=== PATIENT | female | born 1950 | race African-American/Black ===

== ENCOUNTER 2016-08-07 07:00 | Observation (INO) ==
--- NOTE | 2016-08-07 07:56 | Oncology History&Physical ---
History of Present Illness Chief complaint: Outpatient observation for chemotherapy History of present illness: Ms. Pearson is a 66 year old female with small cell carcinoma of the lung admitted for further chemotherapy. Ms. Pearson is a 66 year old female with what is at least stage III B neuroendocrine carcinoma lung that was initially treated in January. Her chemotherapy was started January 17 and she subsequently suffered respiratory arrest requiring intubation and respiratory support including ventilator support. She responded to chemotherapy well and has had significant shrinkage of her tumor. She received her sixth course of chemotherapy during this hospital stay. It consisted of: Etoposide 150 mg IV daily for 3 days given June 11- Carboplatin 450 mg IV on June 12 only Chemotherapy to be administered today will include: Kytril 1 mg IV dexamethasone 10 mg IV Emend 150 mg IV Atropine 0.8 mg IV Camptosar 80 mg IV over 90 minutes Carboplatin 450 mg IV over 1 hour She had responded well to chemotherapy but now she has had progression of disease that is visible on her chest x-ray. The right lung mass has doubled in size over about the last month and she will be admitted at this time for a change in chemotherapy to carboplatin and Camptosar. She is admitted for this chemotherapy because of the multiple adverse reactions that have occurred with previous treatments including respiratory arrest that occurred while she was receiving her first course. She is also admitted because she is very apprehensive about this chemotherapy. She has exceedingly severe COPD and she continues to have dyspnea with exertion but this is improving. She also has had foot drop involving her right foot and this is improving. I suspect that this is unrelated to the actual chemotherapy but more likely related to the fact that she was on a ventilator for a prolonged period of time and may have developed a neuropathy from pressure on her leg. Allergies: Chantix causes hallucinations Past medical history is positive for hypertension, hypothyroidism, bradycardia, COPD and goiter. Previous operations include a hysterectomy with oophorectomy December 28, 1987, thyroidectomy January 14, 1984, breast biopsy October 11, 2004 and appendectomy December 28, 1987. She has also had a compression fracture of the lumbar spine. Social history she smoked half pack a day for many years but does not smoke presently. Family history is positive for lung disease and a brother, coronary artery disease in her father and in a son, hypertension and kidney disease in her mother. ROS Gen.: Positive for fatigue and generalized weakness Eyes: No history of chronic disease, infections or visual loss. ENT: Positive for loss of sense of taste no history of chronic infections, epistaxis, chronic sore throat Lungs: Positive for dyspnea at rest and with exertion. Positive for emphysema. She actually has not ever reported any hemoptysis other than a small amount of blood-tinged sputum. Cardiovascular: No history of angina, coronary artery disease, congestive heart failure, cardiovascular surgery or DVT/VTE GI: No history of upper or lower GI bleeding, melena, dysphagia, odynophagia, liver disease, gallbladder disease or pancreatic disease. : No history of kidney stones, chronic kidney infections or hematuria. Musculoskeletal: Positive for back pain from the compression fracture. Also positive for generalized muscle weakness. Neurologic: Positive for foot drop involving her right foot. No history of seizures, convulsions or paralysis. Psychiatric: No history of chronic psychiatric illness or psychiatric medications. Lymphatic: No history of significant or long-term lymphadenopathy Hematologic: Positive for pancytopenia related to chemotherapy. Skin: No history of chronic skin infections or rashes or significant skin lesions. Physical examination: General: The patient appears chronically ill and tachypneic. Eyes: Normal lids and conjunctivae. ENT: Oral mucosa is normal. Pharynx is normal. Tongue is normal. Her hearing is normal. Neck: Her trachea is midline. Thyroid is normal and she has no neck masses. Cardiovascular: Her heart rhythm is regular without murmur, gallop or rub. There is no jugular venous distention, clubbing or cyanosis and no edema. Pulmonary: Breath sounds are exceedingly coarse and decreased throughout the lung espitia with a slightly prolonged expiratory phase of respiration. I hear no wheezing, rubs, rales or rhonchi. Abdomen: I palpate no abdominal masses, organomegaly, distention, tenderness or ascites. Musculoskeletal: She has generalized muscle weakness and is somewhat thin with loss of muscle mass but there is no focal muscle atrophy or bone or joint deformity. Gait and station are surprisingly normal. Neurologic: Cranial nerves II through XII are intact. There are no focal neurologic deficits. Nodes: There is no cervical, supraclavicular or axillary adenopathy. Skin: Cursory examination is normal. Impression: Recurrent neuroendocrine lung carcinoma with progression of disease Administration of chemotherapy and monitoring for toxicity Severe COPD aggravated by recurrent lung cancer Administration of chemotherapy and monitoring for toxicity Hypertensive cardiovascular disease hypothyroidism Anemia of chronic disease Home Medications Medication Instructions Recorded Confirmed Type Aspirin [Ecotrin] 81 mg PO QAM 12/11/15 07/06/16 History Levothyroxine Tab [Synthroid Tab] 50 mcg PO QAM 12/11/15 07/06/16 History Magnesium Chloride [Slow Mag] 64 mg PO QAM 12/11/15 07/06/16 History NIFEdipine XL TAB [Procardia Xl] 30 mg PO QAM 12/11/15 07/06/16 History Acetaminophen Tab [Tylenol Tab] 325 mg PO Q4H PRN #0 tablet 01/30/16 07/06/16 Rx Docusate Sodium Cap [Colace Cap] 100 mg PO BID PRN #0 capsule 01/30/16 07/06/16 Rx Metoprolol Tartrate Tab [Lopressor 50 mg PO BID tablet 01/30/16 07/06/16 Rx Tab] HYDROcodone/ACETAMIN 7.5-325 1 tablet PO Q6H PRN #20 tablet 04/09/16 07/06/16 Rx [[place] 7.5-325] Umeclidinium Brm/Vilanterol Tr 1 puff INH QAM 05/15/16 07/06/16 History [Anoro Ellipta] Furosemide Tab [Lasix Tab] 20 mg PO QAM 07/06/16 07/06/16 History Losartan [Cozaar] 25 mg PO QAM 07/06/16 07/06/16 History predniSONE TAB [PredniSONE] 10 mg PO QAM 07/06/16 07/06/16 History Allergies Allergy/AdvReac Type Severity Reaction Status Date / Time Varenicline [From Chantix] Allergy Hallucinati Verified 07/06/16 08:27 ng Medical,Surgical,& Family Hx - Medical History Cardio: History of: Hypertension Neurology: No history of: Seizures HEENT: History of: Eye Problem (Cataracts Both Eyes) Endocrine: History of: Thyroid Disorder Respiratory: History of: COPD, Pneumonia, Lung Cancer, Respiratory Problems (SOB , obstruction of upper lobe. 2 LITERS OF O2 PRN.) Gastrointestinal: History of: Diverticulitis/ Diverticulosis, GERD, Hemorrhoids , Polyps, GI Problems (diverticulitis) Other: History of: Cancer (LUNG CANCER), Miscellaneous Medical Problems (Bronch December 2015) - Surgical History HEENT Surgeries: Surgical HX of: Thyroid Surgery (partial thyroidectomy) Patient denies: Tonsilectomy & Adenoidectomy Abdominal Surgeries: Surgical HX of: Appendectomy, Colonoscopy Reproductive Surgeries: Surgical HX of;: Hysterectomy (TOTAL) - Family History Family History: Reports;: Family Cancer (uncle, brother), Family Diabetes ( multiple), Family Heart Disease (multiple), Family Hypertension (multiple) Denies;: Family Stroke - Social History Smoking Status: Former smoker
[2016-08-07] MEDS ORDERED: FOSAPREPITANT 150 MG in SODIUM CHLORIDE 0.9% 100 ML IV ONE (08:24)
[2016-08-07] MEDS ORDERED: ATROPINE 0.4 MG/1 ML VIAL IV SCH (09:00)
[2016-08-07] MEDS ORDERED: DEXTROSE 5% IV ONE (09:00)
[2016-08-07] MEDS ORDERED: IRINOTECAN IV ONE (09:00)
[2016-08-07] MEDS ORDERED: CARBOplatin 450 MG in SODIUM CHLORIDE 0.9% 250 ML IV ONE (09:00)
[2016-08-07 09:15] LABS: Basophils % 0.1 % (0.0-0.8); Eosinophils % 0.1 % (0.00-10.9); Hematocrit 34.5 VOL% (35.7-47.0); Hemoglobin 11.3 GM/DL (12.0-16.0); Immature Granulocytes % 0.6 %; Immature Granulocytes Absolute 0.04 #; Lymphocytes # 1.7 10*3/uL (1.4-4.0); Lymphocytes % 24.1 % (21.3-54.2); Mean Corpuscular HGB Conc 32.8 GM/DL (32-36); Mean Corpuscular Hemoglobin 31 PG (27-34); Mean Platelet Volume 10.1 FL (9.6-12.0); Monocytes # 1.2 10*3/uL (0.11-0.8); Monocytes % 16.7 % (1.7-12.7); Neutrophils # 4.2 10*3/uL (1.4-7.4); Neutrophils % 58.4 % (38.7-73.9); Platelet Count 282 T/CUMM (130-400); Red Blood Count 3.63 MC/CUMM (3.8-5.5); Red Cell Distribution Width 15.2 % (9.3-17.3); White Blood Count 7.2 T/CUMM (4-12)
[2016-08-07 09:42] LABS: Albumin 3.6 G/DL (3.4-5.0); Bilirubin,Total 0.4 MG/DL (0.2-1.0); Calcium 9.5 MG/DL (8.5-10.1); Osmolality,Calculated 284.1 MOS/KG (273-304); Potassium 3.6 MMOL/L (3.5-5.1); Total Protein 6.7 G/DL (6.4-8.3)
--- NOTE | 2016-08-07 09:52 | Event Note ---
I was asked to see Ms. Pearson as a courtesy consult by Dr. Reddy. Very familiar with her case. She has advanced cancer and now has total white out of the right lung. We bronchoscoped her a months ago and she had total obstruction of the bronchus intermedius and about a 90% obstruction of the right upper lobe. Not surprising that it is totally obstructed now. Basically she is doing okay with one long. Needs oxygen and bronchodilators. Agree with change of chemotherapy. Prognosis is poor. Please call if needed further.
[2016-08-07 09:56] LABS: Band Neutrophils 1 % (0-10); Hypochromasia 1+; Lymphocytes 25 % (20-55); Microcytosis Slight; Segmented Neutrophils 59 % (50-85); Total Cells Counted 100
--- NOTE | 2016-08-07 09:57 | XRay Report ---
History: Small cell lung cancer. Severe COPD Date: 08/07/2016 Study: Chest x-ray PA and lateral Comparison exam: July 06, 2016 chest x-ray There is complete opacification of the right hemithorax, likely related to a combination of pleural effusion and right lung atelectasis. The left lung is well-expanded and clear. A left subclavian Mediport catheter is positioned with its tip overlying the atriocaval junction region. There is no gross cardiac enlargement or pulmonary vascular engorgement. There is moderate thoracic spondylosis. Impression: There is now complete opacification of the right hemithorax, likely related to combination of right lung atelectasis and right pleural effusion. The appearance is grossly similar to the interactive multimedia designer film from the CT chest of July 08, 2016. No acute changes otherwise PROCEDURE INTERPRETED AT [facility] DEPARTMENT OF RADIOLOGY Final Report Signed by: Dr. Kia Albert
[2016-08-07 09:59] LABS: Platelet Estimate Normal
[2016-08-07] MEDS: GRANISETRON 1 MG/1 ML VIAL IV SCH (10:03)
[2016-08-07] MEDS: DEXAMETHASONE 4 MG/1 ML VIAL IV SCH (10:04)
[2016-08-07] MEDS ORDERED: ACETAMINOPHEN 325 MG TABLET PO PRN (10:26)
[2016-08-07] MEDS: predniSONE 10 MG TABLET PO SCH (11:46)
[2016-08-07] MEDS: ASPIRIN EC 81 MG TABLET PO SCH (11:55)
[2016-08-07] MEDS: MAGNESIUM CHLORIDE 64 MG TABLET PO SCH (11:55)
[2016-08-07] MEDS: LOSARTAN 25 MG TABLET PO SCH (11:56)
[2016-08-07] MEDS: DOCUSATE SODIUM 100 MG CAPSULE PO SCH ×2 (11:56→20:06)
[2016-08-07] MEDS: FUROSEMIDE 20 MG TABLET PO SCH (11:56)
[2016-08-07] MEDS: METOPROLOL TARTRATE 50 MG TABLET PO SCH ×2 (11:56→20:05)
[2016-08-07] MEDS ORDERED: chlorproMAZINE INJ 25 MG in SODIUM CHLORIDE 0.9% 100 ML IV PRN (19:58)
[2016-08-07] MEDS ORDERED: chlorproMAZINE INJ 50 MG in SODIUM CHLORIDE 0.9% 100 ML IV PRN (19:59)
[2016-08-08] MEDS: LEVOTHYROXINE 50 MCG TABLET PO SCH (06:28)
--- NOTE | 2016-08-08 08:03 | Oncology Progress Note ---
Oncology Subjective PN Interval history: Ms. Pearson received Camptosar and carboplatin yesterday and had nausea and vomiting with it. It improved with Thorazine. She is feeling much better today. She is constipated and we need to address this and then she can go home. I will set up an appointment for her to see me in 2 weeks to follow-up on her lung cancer. Her chemotherapy consisted of Camptosar 80 mg and carboplatin 450 mg. The Camptosar is usually repeated on day 8 but I do not think I will do that with her first course and I may not do it at all. She is oriented and alert today. She has severe COPD. She is somewhat tachypneic but this is chronic. I will give her Aloxi before she is discharged. She already has Compazine tablets at home. Exam - Constitutional Vitals: Period Temp Pulse Resp BP Sys/Carvajal Pulse Ox Last 24 Hr 96.3 F-98.8 F 53-67 16-20 92-164/50-77 90-94 Results - Labs CBC & BMP: 08/07/16 08:50 08/07/16 08:50
[2016-08-08] MEDS ORDERED: PALONOSETRON 0.25 MG/5 ML VIAL IV ONE (08:15)
[2016-08-08] MEDS ORDERED: LACTULOSE 20 GM/30 ML UDCUP PO PRN (08:21)
[2016-08-08] MEDS: predniSONE 10 MG TABLET PO SCH (08:46)
[2016-08-08] MEDS: METOPROLOL TARTRATE 50 MG TABLET PO SCH ×2 (08:46→20:34)
[2016-08-08] MEDS: FUROSEMIDE 20 MG TABLET PO SCH (08:46)
[2016-08-08] MEDS: ASPIRIN EC 81 MG TABLET PO SCH (08:46)
[2016-08-08] MEDS: MAGNESIUM CHLORIDE 64 MG TABLET PO SCH (08:46)
[2016-08-08] MEDS: DOCUSATE SODIUM 100 MG CAPSULE PO SCH ×2 (08:47→20:34)
[2016-08-08] MEDS: DEXAMETHASONE 4 MG/1 ML VIAL IV SCH (08:47)
[2016-08-08] MEDS: LOSARTAN 25 MG TABLET PO SCH (08:47)
[2016-08-08] MEDS: GRANISETRON 1 MG/1 ML VIAL IV SCH (09:01)
[2016-08-08] MEDS ORDERED: ALPRAZolam 0.25 MG TABLET PO PRN (12:36)
[2016-08-09] MEDS: LEVOTHYROXINE 50 MCG TABLET PO SCH (06:30)
[2016-08-09 08:36] VITALS: BP 132/63
--- NOTE | 2016-08-09 08:54 | Oncology Progress Note ---
Oncology Subjective PN Interval history: Ms. Pearson was formally discharged yesterday from outpatient chemotherapy using Camptosar and carboplatin. She was having problems with constipation and later diarrhea and remained overnight and is ready to go home today. This is allowed by Medicare law. The patient has 24 hours to vacate the room. She is feeling well today and will go home. Follow-up appointments are already made. Exam - Constitutional Vitals: Period Temp Pulse Resp BP Sys/Carvajal Pulse Ox Last 24 Hr 97.3 F-98.5 F 50-64 16-20 109-132/59-68 93-97 Results - Labs CBC & BMP: 08/07/16 08:50 08/07/16 08:50
[2016-08-09] MEDS: ASPIRIN EC 81 MG TABLET PO SCH (09:41)
[2016-08-09] MEDS: MAGNESIUM CHLORIDE 64 MG TABLET PO SCH (09:41)
[2016-08-09] MEDS: LOSARTAN 25 MG TABLET PO SCH (09:41)
[2016-08-09] MEDS: DOCUSATE SODIUM 100 MG CAPSULE PO SCH (09:41)
[2016-08-09] MEDS: predniSONE 10 MG TABLET PO SCH (09:41)
[2016-08-09] MEDS: METOPROLOL TARTRATE 50 MG TABLET PO SCH (09:41)
[2016-08-09] MEDS: FUROSEMIDE 20 MG TABLET PO SCH (09:42)
[2016-08-09] MEDS ORDERED: HEPARIN LOCK FLUSH 500 UNIT/5 ML SYRINGE IV PRN (09:44)
== END 2016-08-09 12:10 | disposition home or self-care (01) ==
LOC: N.4E → EDSTATUS 07:00
PROVIDERS: ADMIT Specialist; ATTEND Specialist

== ENCOUNTER 2016-09-24 06:41 | Inpatient (IN) ==
[2016-09-24] MEDS ORDERED: PROMETHAZINE 25 MG/1 ML VIAL IM ONE (07:10)
[2016-09-24] MEDS ORDERED: MIDAZOLAM 2 MG/2 ML VIAL IV ONE (07:10)
[2016-09-24] MEDS ORDERED: LIDOCAINE 2% VISCOUS 100 ML BOTTLE SWISH/SPIT ONE (07:22)
[2016-09-24] MEDS ORDERED: PROMETHAZINE 25 MG/1 ML VIAL ONE (07:54)
[2016-09-24] MEDS ORDERED: MIDAZOLAM 2 MG/2 ML VIAL ONE (08:23)
--- NOTE | 2016-09-24 08:55 | Pulmonology History & Physical ---
Assessment and Plan (1) Obstruction right upper lobe Status: Acute Assessment and plan: Plan for bronchoscopy outpatient this morning. Please see dictation from that Current Visit: Yes (2) metastatic small cell lung cancer Status: Acute Assessment and plan: Has known small cell lung cancer right lung with widespread metastasis. Current Visit: No (3) COPD (chronic obstructive pulmonary disease) Status: Chronic Assessment and plan: Chronic obstructive pulmonary disease treated with bronchodilators. She relates that one of the inhalers that we have prescribed she was not able to purchase. Current Visit: No - Constitutional Constitutional: Present: fatigue, malaise - Cardiovascular Cardiovascular: Present: dyspnea, dyspnea on exertion - Respiratory Respiratory: Present: dyspnea, hemoptysis, dyspnea on exertion History of Present Illness Chief complaint: Right upper lobe obstruction History of present illness: Ms. Pearson is a 66 year old female with small cell lung cancer. She has had 2 full rounds of different chemotherapies. She has had radiation therapy. She developed obstruction of the right upper lobe on x-ray and was sent to me by Dr. Reddy for bronchoscopy. She was supposed to come to the office yesterday but went to the emergency room. We arrange for bronchoscopy this morning. She has been short of breath and having a cough. She has not had any fever. Appetite is been fair. Home Medications Medication Instructions Recorded Confirmed Type Aspirin [Ecotrin] 81 mg PO QAM 12/11/15 09/24/16 History Levothyroxine Tab [Synthroid Tab] 50 mcg PO QAM 12/11/15 09/24/16 History Magnesium Chloride [Slow Mag] 64 mg PO QAM 12/11/15 09/24/16 History NIFEdipine XL TAB [Procardia Xl] 30 mg PO QAM 12/11/15 09/24/16 History Acetaminophen Tab [Tylenol Tab] 325 mg PO Q4H PRN #0 tablet 01/30/16 09/23/16 Rx Docusate Sodium Cap [Colace Cap] 100 mg PO BID PRN #0 capsule 01/30/16 09/24/16 Rx HYDROcodone/ACETAMIN 7.5-325 1 tablet PO Q6H PRN #20 tablet 04/09/16 09/24/16 Rx [[place] 7.5-325] Losartan [Cozaar] 25 mg PO QAM 07/06/16 09/24/16 History predniSONE TAB [PredniSONE] 10 mg PO QAM 07/06/16 09/24/16 History Doxepin HCl [Doxepin HCl] 25 mg PO BEDTIME 08/30/16 09/24/16 History Furosemide Tab [Lasix Tab] 40 mg PO QAM 08/30/16 09/24/16 History Metoprolol Tartrate Tab [Lopressor 50 mg PO BID W/MEALS 08/30/16 09/24/16 History Tab] Ondansetron Tab [Zofran Tab] 4 mg PO Q6H #10 tablet 08/30/16 09/24/16 Rx Albuterol Inhaler [Proventil 2 puff INH Q4H PRN 09/23/16 09/24/16 History Inhaler] Albuterol Neb [Proventil Neb] 2.5 mg RESP TX Q4H PRN 09/23/16 09/24/16 History Allergies Allergy/AdvReac Type Severity Reaction Status Date / Time Varenicline [From Chantix] Allergy Hallucinati Verified 09/23/16 12:06 ng Medical,Surgical,& Family Hx - Medical History Cardio: History of: Hypertension Neurology: No history of: Seizures HEENT: History of: Eye Problem (Cataracts Both Eyes) Endocrine: History of: Thyroid Disorder Respiratory: History of: COPD, Pneumonia, Lung Cancer, Respiratory Problems (SOB , obstruction of upper lobe. 2 LITERS OF O2 PRN.) Gastrointestinal: History of: Diverticulitis/ Diverticulosis, GERD, Hemorrhoids , Polyps, GI Problems (diverticulitis) Other: History of: Cancer (LUNG CANCER, LAST CHEMO 09/05/16), Miscellaneous Medical Problems (Bronch December 2015) - Surgical History HEENT Surgeries: Surgical HX of: Thyroid Surgery (partial thyroidectomy) Patient denies: Tonsilectomy & Adenoidectomy Abdominal Surgeries: Surgical HX of: Appendectomy, Colonoscopy Reproductive Surgeries: Surgical HX of;: Hysterectomy (TOTAL) - Family History Family History: Reports;: Family Cancer (uncle, brother), Family Diabetes ( multiple), Family Heart Disease (multiple), Family Hypertension (multiple) Denies;: Family Stroke - Social History Smoking Status: Former smoker Frequency of Alcohol Use: None Type of Drug Use: None Exam (Pulmonay) H&P - Constitutional Vitals: Period Temp Pulse Resp BP Sys/Carvajal Pulse Ox Last 24 Hr 98.4 F 83-108 12-26 142-179/83-107 87-100 Exam: Vital signs normal. Pupils react to light. Throat is clear. Neck supple no bruits. Chest reveals decreased breath sounds in the right upper lung field. Heart normal rate and rhythm no murmurs. Abdomen soft no masses. Extremities no clubbing cyanosis edema. Calves nontender.
--- NOTE | 2016-09-24 09:00 | Operative Note ---
Date of procedure: 09/24/16 (Fiberoptic bronchoscopy) Pre-op diagnosis: Known lung cancer with right upper lobe atelectasis, suspect obstruction Post-op diagnosis: same (Tumor involving lower one third of trachea with about 60% obstruction of trachea) Procedure: After an appropriate timeout to be sure we were dealing with Kwan Pearson, the patient was topically anesthetized with Xylocaine. She had been given Phenergan 25 mg intramuscularly. She was given 2 mg of Versed intravenously to the point of sedation. 3 L of nasal oxygen was placed in the left naris. The fiberoptic bronchoscope was introduced in the right naris. Vocal cords were identified and noted to function normally with phonation. After further topical anesthesia the trachea was entered. The lower one third of the trachea had bulky friable red endotracheal tumor all the way down to the takeoff of the right lung. Right upper lobe was totally obstructed. I was able to visualize in the right lower middle lobe. We took a photograph of the tumor. When we passed the bronchoscope around the tumor into the lower part of the right long, she had some bleeding from the tumor bed. The tumor was very friable. We used iced saline over the top of the tumor. The bleeding subsided somewhat. We did send bronchial washings from the saline for cytology. Based on what we saw visually this is clearly extension of her small cell lung cancer. The bronchoscope was removed. Patient returned to same-day surgery in stable condition. She still having some hemoptysis however. I discussed the case with Dr. Reddy and with the patient's son. I do not think that there are any measures that are going to make a difference at this point. We will try to quiet her cough to prevent further bleeding. She will be admitted to [facility] for comfort measures Anesthesia: conscious sedation Surgeon / Physician: Russel Martinez Estimated blood loss: other (She lost about 10-15 cc of blood) Specimens: other (Bronchial washings for cytology) Condition: stable Disposition: same day Discharge Plan - Discharge Medications No Action Aspirin [Ecotrin] 81 mg PO QAM Levothyroxine Tab [Synthroid Tab] 50 mcg PO QAM NIFEdipine XL TAB [Procardia Xl] 30 mg PO QAM Magnesium Chloride [Slow Mag] 64 mg PO QAM Acetaminophen Tab [Tylenol Tab] 325 mg PO Q4H PRN #0 tablet PRN Reason: fever, headache/body aches Docusate Sodium Cap [Colace Cap] 100 mg PO BID PRN #0 capsule PRN Reason: Constipation HYDROcodone/ACETAMIN 7.5-325 [[place] 7.5-325] 1 tablet PO Q6H PRN #20 tablet PRN Reason: Pain Losartan [Cozaar] 25 mg PO QAM Doxepin HCl [Doxepin HCl] 25 mg PO BEDTIME Furosemide Tab [Lasix Tab] 40 mg PO QAM predniSONE TAB [PredniSONE] 10 mg PO QAM Metoprolol Tartrate Tab [Lopressor Tab] 50 mg PO BID W/MEALS Ondansetron Tab [Zofran Tab] 4 mg PO Q6H #10 tablet Albuterol Neb [Proventil Neb] 2.5 mg RESP TX Q4H PRN PRN Reason: Shortness Of Breath/Wheezing Albuterol Inhaler [Proventil Inhaler] 2 puff INH Q4H PRN PRN Reason: Shortness Of Breath/Wheezing - Follow Up or Referral - Forms/Instructions Instructions: Christopher Bronchoscopy or Lung Biopsy
--- NOTE | 2016-09-24 09:19 | Oncology History&Physical ---
History of Present Illness Chief complaint: Progressive small cell neuroendocrine lung cancer History of present illness: Ms. 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 It was stage IV at the time of diagnosis and in addition she had extremely severe COPD. She has previously been treated with chemotherapy using etoposide and carboplatin and now she has progressed on Camptosar and carboplatin. She is not considered a candidate for radiation therapy because of stage IV disease. She has developed progression of disease with atelectasis of the right upper lobe and with progression of cancer growing up her mainstem bronchus on the right side. She is having worsening dyspnea although not particularly worsening chest pain. She is developing hemoptysis as well. She has had no fever. Lab work in my office done yesterday included a hemoglobin of 10.4 with a white cell count 6870 and a platelet count of 130,000. Past medical history is positive for COPD. Allergies: Chantix Secondary diagnoses include: Hypertensive cardiovascular disease Hypothyroidism Goiter Social history: She has been a heavy smoker in the past. Family history is positive for COPD in her brother, coronary artery disease in her father, hypertension and kidney disease in her mother. Review of systems: General: Positive for fatigue but negative for fever or chills. Eyes: Negative for significant eye disease, glaucoma or loss of vision. ENT: Negative for pharyngitis, odynophagia, significant mouth or throat disease. Respiratory: Positive for cough and dyspnea and she began having hemoptysis today. Cardiovascular: Negative for chest pain, irregular heartbeat or syncope. GI: Positive for decreased appetite. Negative for nausea and vomiting, hematemesis, melena or hematochezia. : Negative for kidney stones, kidney infections or hematuria. Neurologic: Negative for syncope or seizures or focal neurologic deficits. Hematologic: Positive for mild anemia but negative for leukopenia or thrombocytopenia. Negative for lymphadenopathy. Skin: Negative for skin rashes or lesions. Endocrine: Positive for hypothyroidism and goiter. Physical examination: General: The patient is chronically and acutely ill. Eyes: Normal lids and conjunctivae. ENT: Nodular goiter. Edentulous on maxillary ridge. Poor dentition on mandibular ridge. Trachea is midline. Hearing is normal. Lungs: Absent breath sounds in the upper two thirds of the right lung. Coarse breath sounds throughout the rest of the lung espitia with faint expiratory wheezing. Cardiovascular: Her heart rhythm is regular without murmur, gallop or rub. There is no jugular venous distention, clubbing or cyanosis. Abdomen: No ascites, masses or organomegaly or tenderness. Musculoskeletal: Generalized muscle weakness. No focal muscle atrophy or bone or joint deformity. Neurologic: Cranial nerves II through XII are intact. There are no focal neurologic deficits. Psychiatric: The patient is anxious but oriented and alert. 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 At this point Dr. Martinez and I have discussed her case and are recommending comfort measures. Severe COPD Nodular goiter Anemia Her diagnostic studies and treatment plan see my orders. Home Medications Medication Instructions Recorded Confirmed Type Aspirin [Ecotrin] 81 mg PO QAM 12/11/15 09/24/16 History Levothyroxine Tab [Synthroid Tab] 50 mcg PO QAM 12/11/15 09/24/16 History Magnesium Chloride [Slow Mag] 64 mg PO QAM 12/11/15 09/24/16 History NIFEdipine XL TAB [Procardia Xl] 30 mg PO QAM 12/11/15 09/24/16 History Acetaminophen Tab [Tylenol Tab] 325 mg PO Q4H PRN #0 tablet 01/30/16 09/23/16 Rx Docusate Sodium Cap [Colace Cap] 100 mg PO BID PRN #0 capsule 01/30/16 09/24/16 Rx HYDROcodone/ACETAMIN 7.5-325 1 tablet PO Q6H PRN #20 tablet 04/09/16 09/24/16 Rx [[employer] 7.5-325] Losartan [Cozaar] 25 mg PO QAM 07/06/16 09/24/16 History predniSONE TAB [PredniSONE] 10 mg PO QAM 07/06/16 09/24/16 History Doxepin HCl [Doxepin HCl] 25 mg PO BEDTIME 08/30/16 09/24/16 History Furosemide Tab [Lasix Tab] 40 mg PO QAM 08/30/16 09/24/16 History Metoprolol Tartrate Tab [Lopressor 50 mg PO BID W/MEALS 08/30/16 09/24/16 History Tab] Ondansetron Tab [Zofran Tab] 4 mg PO Q6H #10 tablet 08/30/16 09/24/16 Rx Albuterol Inhaler [Proventil 2 puff INH Q4H PRN 09/23/16 09/24/16 History Inhaler] Albuterol Neb [Proventil Neb] 2.5 mg RESP TX Q4H PRN 09/23/16 09/24/16 History Allergies Allergy/AdvReac Type Severity Reaction Status Date / Time Varenicline [From Chantix] Allergy Hallucinati Verified 09/23/16 12:06 ng Medical,Surgical,& Family Hx - Medical History Cardio: History of: Hypertension Neurology: No history of: Seizures HEENT: History of: Eye Problem (Cataracts Both Eyes) Endocrine: History of: Thyroid Disorder Respiratory: History of: COPD, Pneumonia, Lung Cancer, Respiratory Problems (SOB , obstruction of upper lobe. 2 LITERS OF O2 PRN.) Gastrointestinal: History of: Diverticulitis/ Diverticulosis, GERD, Hemorrhoids , Polyps, GI Problems (diverticulitis) Other: History of: Cancer (LUNG CANCER, LAST CHEMO 09/05/16), Miscellaneous Medical Problems (Bronch December 2015) - Surgical History HEENT Surgeries: Surgical HX of: Thyroid Surgery (partial thyroidectomy) Patient denies: Tonsilectomy & Adenoidectomy Abdominal Surgeries: Surgical HX of: Appendectomy, Colonoscopy Reproductive Surgeries: Surgical HX of;: Hysterectomy (TOTAL) - Family History Family History: Reports;: Family Cancer (uncle, brother), Family Diabetes ( multiple), Family Heart Disease (multiple), Family Hypertension (multiple) Denies;: Family Stroke - Social History Smoking Status: Former smoker Frequency of Alcohol Use: None Type of Drug Use: None Exam - Constitutional Vitals: Period Temp Pulse Resp BP Sys/Carvajal Pulse Ox Last 24 Hr 98.4 F 83-108 12-28 129-179/77-107 87-100
[2016-09-24] MEDS ORDERED: MYLANTA/LIDO VISC 2:1 300 ML BOTTLE SWISH/SWAL PRN (09:42)
[2016-09-24] MEDS ORDERED: LACTULOSE 20 GM/30 ML UDCUP PO PRN (09:42)
[2016-09-24] MEDS ORDERED: chlorproMAZINE 25 MG TABLET PO PRN (09:42)
[2016-09-24] MEDS ORDERED: ACETAMINOPHEN 325 MG TABLET PO PRN (09:42)
[2016-09-24] MEDS ORDERED: MYLANTA/LIDO VISC 2:1 300 ML BOTTLE SWISH/SPIT PRN (09:42)
[2016-09-24] MEDS ORDERED: LOPERAMIDE 2 MG CAPSULE PO PRN ×2 (09:42)
[2016-09-24] MEDS ORDERED: ALUMINUM/MAGNES/SIMETH MAX STR 30 ML UDCUP PO PRN (09:42)
[2016-09-24] MEDS ORDERED: chlorproMAZINE INJ 25 MG in SODIUM CHLORIDE 0.9% 100 ML IV PRN (09:42)
[2016-09-24] MEDS ORDERED: chlorproMAZINE INJ 50 MG in SODIUM CHLORIDE 0.9% 100 ML IV PRN (09:42)
[2016-09-24] MEDS ORDERED: TEMAZEPAM 7.5 MG CAPSULE PO PRN (09:42)
[2016-09-24] MEDS ORDERED: BENZTROPINE 2 MG/2 ML AMP IV PRN (09:42)
[2016-09-24] MEDS ORDERED: diphenhydrAMINE CAP 25 MG CAPSULE PO PRN (09:42)
[2016-09-24] MEDS ORDERED: traMADol 50 MG TABLET PO PRN (09:42)
[2016-09-24] MEDS ORDERED: PROMETHAZINE INJ 25 MG in SODIUM CHLORIDE 0.9% 50 ML IV PRN (09:42)
--- NOTE | 2016-09-24 09:48 | Event Note ---
Patient seen on the floor. Discussed case with her son. She is not coughing up blood anymore. She had involvement of about the lower one third of the trachea on the right side with about two thirds of the cross-sectional diameter obstructed. Very likely to bleed more. Primarily comfort measures at this point. Dr. Johnston will be around the next few days as I will be out.
[2016-09-24 10:13] LABS: Basophils % 0.3 % (0.0-0.8); Eosinophils # 0.1 10*3/uL (0.0-0.87); Eosinophils % 0.6 % (0.00-10.9); Hemoglobin 10.1 GM/DL (12.0-16.0); Immature Granulocytes % 0.4 %; Immature Granulocytes Absolute 0.03 #; Lymphocytes % 25.3 % (21.3-54.2); Mean Corpuscular HGB Conc 32.6 GM/DL (32-36); Mean Corpuscular Hemoglobin 32 PG (27-34); Mean Corpuscular Volume 97.2 FL (87-102); Mean Platelet Volume 9.9 FL (9.6-12.0); Monocytes # 0.9 10*3/uL (0.11-0.8); Monocytes % 11.1 % (1.7-12.7); Neutrophils % 62.3 % (38.7-73.9); Platelet Count 133 T/CUMM (130-400); Red Blood Count 3.19 MC/CUMM (3.8-5.5); Red Cell Distribution Width 15.3 % (9.3-17.3); White Blood Count 7.9 T/CUMM (4-12)
[2016-09-24 10:45] LABS: Alanine Aminotransferase 19 U/L (13-56); Albumin 3.5 G/DL (3.4-5.0); Alkaline Phosphatase 82 U/L (45-117); Aspartate Amino Transferase 23 U/L (0-37); Bilirubin,Total < 0.39 MG/DL (0.2-1.0); Blood Urea Nitrogen 13 MG/DL (7-18); Calcium 9.3 MG/DL (8.5-10.1); Glucose 100 MG/DL (74-106); Magnesium 1.9 MG/DL (1.8-2.4); Osmolality,Calculated 282.1 MOS/KG (273-304); Potassium 3.5 MMOL/L (3.5-5.1); Sodium 142 MMOL/L (136-145); Total Protein 6.7 G/DL (6.4-8.3); Uric Acid 7.3 MG/DL (2.6-6.0)
[2016-09-24] MEDS: MORPHINE 2 MG/1 ML SYRINGE IV PRN (12:42)
[2016-09-24] MEDS: ONDANSETRON 4 MG/2 ML VIAL IV PRN (17:47)
[2016-09-24] MEDS: HYDROcodone/CHLORPHENIRAMINE ER 5 ML UDCUP PO SCH (20:51)
[2016-09-25] MEDS: ALPRAZolam 0.25 MG TABLET PO PRN ×2 (01:34→13:20)
[2016-09-25 06:29] LABS: Apearance,Urine CLEAR (Clear); Bilirubin,Urine Negative (Negative); Blood, Urine Negative (Negative); Glucose,Urine (UA) Negative (Negative); Ketones,Urine 20 mg/dL (Negative); Mucus,Urine Moderate /LPF (Occasional); Nitrite,Urine Negative (Negative); Protein,Urine Negative; RBC,Urine <1 /HPF (0-4); Squamous Epithelial Cell,Urine Occasional /HPF (0-10); Urine Color Yellow (Yellow); Urine Specific Gravity 1.025 (1.001-1.035); Urine Urobilinogen < 2.0 EU/DL (0.2-1.0); WBC,Urine 3 /HPF (0-6)
--- NOTE | 2016-09-25 07:10 | Oncology Progress Note ---
Oncology Subjective PN Interval history: Ms. Pearson is admitted with recurrent, progressive small cell neuroendocrine carcinoma of lung. She had hemoptysis shortly before admission. She has extremely severe COPD. She developed progressive atelectasis of the right upper lobe.Her dyspnea has significantly improved. She is having no chest pain and she has had no further hemoptysis. She is fully oriented and alert. She continues to have absent breath sounds in the right upper lobe. Her breath sounds are coarse throughout the rest of her lung espitia but she has no wheezing. Expiratory phase of respiration is normal. Her heart rhythm is regular without murmur, gallop or rub. Cranial nerves II through XII are intact. There are no focal neurologic deficits. She is acutely and chronically ill with advanced small cell neuroendocrine carcinoma. She is DNR it comes to it. However, if her condition continues to improve, we may be considering discharge summary as soon as tomorrow. I have made this lady and her family aware that her prognosis is poor. They want to try third line chemotherapy. I have ordered reduced doses of the chemotherapy to begin with. She will receive carmustine 100 mg IV and Cytoxan 1000 mg IV today. Her hemoptysis has cleared. Exam - Constitutional Vitals: Period Temp Pulse Resp BP Sys/Carvajal Pulse Ox Last 24 Hr 97.2 F-99.1 F 83-108 12-32 121-179/72-107 87-100 Results - Labs CBC & BMP: 09/25/16 07:31 09/25/16 07:31 Specialty Discharge - Follow Up or Referrals
[2016-09-25 07:48] LABS: Basophils % 0.3 % (0.0-0.8); Eosinophils % 0.4 % (0.00-10.9); Hematocrit 30.9 VOL% (35.7-47.0); Hemoglobin 10.2 GM/DL (12.0-16.0); Immature Granulocytes % 0.6 %; Immature Granulocytes Absolute 0.04 #; Lymphocytes # 1.5 10*3/uL (1.4-4.0); Mean Corpuscular Hemoglobin 32 PG (27-34); Mean Corpuscular Volume 96.3 FL (87-102); Mean Platelet Volume 10.3 FL (9.6-12.0); Monocytes # 0.8 10*3/uL (0.11-0.8); Neutrophils # 4.7 10*3/uL (1.4-7.4); Neutrophils % 66.7 % (38.7-73.9); Platelet Count 135 T/CUMM (130-400); Red Blood Count 3.21 MC/CUMM (3.8-5.5); Red Cell Distribution Width 15.3 % (9.3-17.3); White Blood Count 7.1 T/CUMM (4-12)
--- NOTE | 2016-09-25 07:55 | Oncology Progress Note ---
Oncology Subjective PN Interval history: Patient with progressive small cell neuroendocrine carcinoma of the lung admitted with progression of disease and a white out of the right upper lobe. Exam - Constitutional Vitals: Period Temp Pulse Resp BP Sys/Carvajal Pulse Ox Last 24 Hr 97.2 F-99.1 F 86-108 12-32 121-179/72-107 87-100 Results - Labs CBC & BMP: 09/25/16 07:31 09/24/16 10:02 Specialty Discharge - Follow Up or Referrals
--- NOTE | 2016-09-25 08:14 | Pulmonology Progress Note ---
Pulmonary - PN: Subj Interval history: The patient is a 66-year-old black lady that has recurrent small cell carcinoma the lung. Now she has worsening tumor in the right lower trachea and obstructing the right upper lung. She apparently had hemoptysis at one time but she says her cough is better. She says she feels better today. She feels like she is breathing a little better today. She does seem to be comfortable on low-flow oxygen. Exam (Progress Note) - Constitutional Vitals: Period Temp Pulse Resp BP Sys/Carvajal Pulse Ox Last 24 Hr 97.2 F-99.1 F 86-108 12-32 121-179/72-107 87-100 General appearance: normal weight, no acute distress - Head Head exam: Present: normal inspection, normocephalic - Eye Eye exam: Present: EOMI. Absent: scleral icterus Pupils: Present: АЛЕКСАНДР - ENT ENT exam: Present: normal exam - Neck Neck exam: Present: normal inspection. Absent: lymphadenopathy, thyromegaly - Respiratory Respiratory exam: Present: decreased breath sounds (She has decreased breath sounds in the right chest.). Absent: rales, wheezes - Cardiovascular Cardiovascular exam: Present: regular rate and rhythm. Absent: gallop, systolic murmur - GI/Abdominal GI/Abdominal exam: Present: normal bowel sounds, soft. Absent: distended, organomegaly, tenderness - Extremities Exam Extremities exam: Absent: calf tenderness, edema - Neurological Exam Neurological exam: Present: alert, oriented X3, CN II-XII intact. Absent: motor sensory deficit - Psychiatric Psychiatric exam: Absent: anxious - Skin Skin exam: Present: warm, dry Results - Labs CBC & BMP: 09/25/16 07:31 09/24/16 10:02 Assessment and Plan (1) metastatic small cell lung cancer Status: Acute Assessment and plan: The patient apparently has recurrent small cell cancer of the lung. Her outlook is very poor Current Visit: No (2) COPD (chronic obstructive pulmonary disease) Status: Chronic Assessment and plan: Patient is breathing comfortably now and will continue with bronchodilator therapy. Current Visit: No (3) Obstruction right upper lobe Status: Acute Assessment and plan: The patient has tumor in her distal trachea and obstructing the right upper lobe. Her prognosis is very poor. She does appear to be comfortable at present . Current Visit: Yes Specialty Discharge - Follow Up or Referrals
[2016-09-25] MEDS ORDERED: ACETAMINOPHEN 325 MG TABLET PO PRN (08:17)
[2016-09-25] MEDS ORDERED: NON-FORMULARY MEDICATION (Albuterol Inhaler 2 PUFF) INH PRN (08:17)
[2016-09-25 08:26] LABS: Albumin 3.4 G/DL (3.4-5.0); Bilirubin,Total 0.5 MG/DL (0.2-1.0); Calcium 9.6 MG/DL (8.5-10.1); Osmolality,Calculated 281.1 MOS/KG (273-304); Potassium 3.7 MMOL/L (3.5-5.1); Total Protein 6.6 G/DL (6.4-8.3)
[2016-09-25] MEDS: LEVOTHYROXINE 50 MCG TABLET PO SCH (08:52)
[2016-09-25] MEDS: LOSARTAN 25 MG TABLET PO SCH (08:52)
[2016-09-25] MEDS: MAGNESIUM CHLORIDE 64 MG TABLET PO SCH (08:53)
[2016-09-25] MEDS: ONDANSETRON 4 MG TABLET PO SCH ×3 (08:53→20:47)
[2016-09-25] MEDS: predniSONE 10 MG TABLET PO SCH (08:53)
[2016-09-25] MEDS: HYDROcodone/CHLORPHENIRAMINE ER 5 ML UDCUP PO SCH ×2 (08:55→20:48)
[2016-09-25] MEDS ORDERED: DEXTROSE 5% IV ONE (08:56)
[2016-09-25] MEDS ORDERED: [UNRECOGNIZED DRUG - OTHER] IV ONE (08:56)
[2016-09-25] MEDS: MORPHINE 2 MG/1 ML SYRINGE IV PRN ×3 (08:56→16:49)
[2016-09-25] MEDS ORDERED: CYCLOPHOSPHAMIDE INJ 1,000 MG in SODIUM CHLORIDE 0.9% 250 ML IV ONE (08:57)
[2016-09-25] MEDS ORDERED: DEXAMETHASONE INJ 20 MG in SODIUM CHLORIDE 0.9% 50 ML IV ONE (08:58)
[2016-09-25] MEDS: GRANISETRON 1 MG/1 ML VIAL IV SCH (13:20)
[2016-09-25] MEDS: METOPROLOL TARTRATE 50 MG TABLET PO SCH (17:20)
[2016-09-25] MEDS: DOXEPIN 25 MG CAPSULE PO SCH (20:48)
[2016-09-26] MEDS: ONDANSETRON 4 MG TABLET PO SCH ×4 (02:27→20:55)
[2016-09-26 05:10] LABS: Basophils % 0.2 % (0.0-0.8); Eosinophils # 0.1 10*3/uL (0.0-0.87); Hematocrit 29.7 VOL% (35.7-47.0); Hemoglobin 9.8 GM/DL (12.0-16.0); Immature Granulocytes % 0.3 %; Immature Granulocytes Absolute 0.02 #; Lymphocytes # 1.7 10*3/uL (1.4-4.0); Lymphocytes % 28.7 % (21.3-54.2); Mean Corpuscular Hemoglobin 32 PG (27-34); Mean Corpuscular Volume 97.1 FL (87-102); Mean Platelet Volume 11.4 FL (9.6-12.0); Monocytes # 0.8 10*3/uL (0.11-0.8); Monocytes % 12.9 % (1.7-12.7); Neutrophils # 3.4 10*3/uL (1.4-7.4); Neutrophils % 56.9 % (38.7-73.9); Platelet Count 131 T/CUMM (130-400); Red Blood Count 3.06 MC/CUMM (3.8-5.5); Red Cell Distribution Width 15.1 % (9.3-17.3)
[2016-09-26 05:42] LABS: Bilirubin,Total 0.4 MG/DL (0.2-1.0); Potassium 3.5 MMOL/L (3.5-5.1)
[2016-09-26] MEDS: ONDANSETRON 4 MG/2 ML VIAL IV PRN (06:42)
[2016-09-26] MEDS: MORPHINE 2 MG/1 ML SYRINGE IV PRN ×4 (07:16→20:55)
[2016-09-26] MEDS: ALPRAZolam 0.25 MG TABLET PO PRN ×3 (07:17→16:55)
--- NOTE | 2016-09-26 08:46 | Oncology Progress Note ---
Oncology Subjective PN Interval history: Ms. Pearson has neuroendocrine small cell carcinoma of the lung with progression of disease including extension up the right mainstem bronchus with atelectasis of the right upper lobe is a new finding. She was admitted with hemoptysis and increasing dyspnea and chest pain. Her lung cancer is complicated by severe COPD and also by anxiety and additionally by anemia of chronic disease. Blood work today includes a white cell count of 6000 with a hemoglobin of 9.8 and a platelet count of 131,000. Her absolute neutrophil count is 3400. This morning she is anxious and tachypneic. She had an episode of right upper chest pain early this morning. She had no hemoptysis and no sputum production. I was hoping to discharge her in follow-up in my office in 2 weeks but I am certain that she would come right back to the emergency room for discharge her today. She is critically ill and she also tends to work herself up into a frenzy with separation anxiety. In addition, this is third line chemotherapy and the likelihood of a meaningful response is not good at this point. On physical examination she is frail, cachectic and anxious. Lids and conjunctivae are normal. She is tachypnea. Breath sounds are decreased in the right upper lung field and she has bronchial and bronchovesicular breath sounds throughout the rest of her lungs. Her heart rhythm is regular without murmur, gallop or rub. She has no abdominal masses, organomegaly, distention or tenderness. She is oriented to time, place, person and situation. Cranial nerves II through XII are intact. She has no focal neurologic deficits. She has no cervical, supraclavicular or submandibular adenopathy. She has no significant skin lesions. She is afebrile and is on no current antibiotics. I will continue to monitor lab work on a daily basis since she may require granulocyte colony-stimulating factor if she begins to develop neutropenia. Current active diagnoses include: Small cell neuroendocrine carcinoma of the lung with progression of disease. Administration of chemotherapy using BCNU (carmustine) 100 mg IV and Cytoxan 1000 mg IV and monitoring for toxicity. Severe COPD Anemia She also has a history of Nodular goiter Exam - Constitutional Vitals: Period Temp Pulse Resp BP Sys/Carvajal Pulse Ox Last 24 Hr 96.7 F-98.0 F 96-102 18-29 126-136/78-85 91-95 Results - Labs CBC & BMP: 09/26/16 04:00 09/26/16 04:00 Specialty Discharge - Follow Up or Referrals
[2016-09-26] MEDS: LEVOTHYROXINE 50 MCG TABLET PO SCH (09:18)
[2016-09-26] MEDS: predniSONE 10 MG TABLET PO SCH (09:18)
[2016-09-26] MEDS: METOPROLOL TARTRATE 50 MG TABLET PO SCH ×2 (09:18→16:29)
[2016-09-26] MEDS: LOSARTAN 25 MG TABLET PO SCH (09:19)
[2016-09-26] MEDS: MAGNESIUM CHLORIDE 64 MG TABLET PO SCH (09:19)
[2016-09-26] MEDS: HYDROcodone/CHLORPHENIRAMINE ER 5 ML UDCUP PO SCH ×2 (09:20→20:56)
[2016-09-26] MEDS: GRANISETRON 1 MG/1 ML VIAL IV SCH (09:22)
--- NOTE | 2016-09-26 12:14 | Pulmonology Progress Note ---
Pulmonary - PN: Subj Interval history: The patient is a 66-year-old black lady that has recurrent small cell carcinoma the lung. Now she has worsening tumor in the right lower trachea and obstructing the right upper lung. She apparently had hemoptysis at one time but she says her cough is better. She is not having any further hemoptysis. This morning she felt very and anxious when she got up to go the bathroom. She says she did not feel very well at all. She did start chemotherapy yesterday. Her breathing is about the same although she gets very short of breath easily. Exam (Progress Note) - Constitutional Vitals: Period Temp Pulse Resp BP Sys/Carvajal Pulse Ox Last 24 Hr 96.7 F-98.3 F 96-145 18-29 108-136/66-86 91-98 Exam: General appearance: normal weight, she looks comfortable lying in bed but does get anxious quite easily. - Head Head exam: Present: normal inspection, normocephalic - Eye Eye exam: Present: EOMI. Absent: scleral icterus Pupils: Present: АЛЕКСАНДР - ENT ENT exam: Present: normal exam - Neck Neck exam: Present: normal inspection. Absent: lymphadenopathy, thyromegaly - Respiratory Respiratory exam: Present: She still has very diminished breath sounds on the right compared to the left. I do not hear any wheezing. - Cardiovascular Cardiovascular exam: Present: regular rate and rhythm. Absent: gallop, systolic murmur - GI/Abdominal GI/Abdominal exam: Present: normal bowel sounds, soft. Absent: distended, organomegaly, tenderness - Extremities Exam Extremities exam: Absent: calf tenderness, edema - Neurological Exam Neurological exam: Present: alert, oriented X3, CN II-XII intact. Absent: motor sensory deficit - Psychiatric Psychiatric exam: Absent: She did get very anxious this morning. - Skin Skin exam: Present: warm, dry Results - Labs CBC & BMP: 09/26/16 04:00 09/26/16 04:00 Assessment and Plan (1) metastatic small cell lung cancer Status: Acute Assessment and plan: The patient apparently has recurrent small cell cancer of the lung. Her outlook is very poor. She is starting another cycle of chemotherapy. Current Visit: No (2) COPD (chronic obstructive pulmonary disease) Status: Chronic Assessment and plan: Patient is breathing comfortably now and will continue with bronchodilator therapy. Current Visit: No (3) Obstruction right upper lobe Status: Acute Assessment and plan: The patient has tumor in her distal trachea and obstructing the right upper lobe. She has not had any further hemoptysis. She is starting another round of chemotherapy. She cannot do much activity but she appears comfortable at rest. Current Visit: Yes Specialty Discharge - Follow Up or Referrals
[2016-09-26] MEDS: MAGNESIUM HYDROXIDE SUSP 30 ML UDCUP PO PRN (16:29)
[2016-09-26] MEDS: DOXEPIN 25 MG CAPSULE PO SCH (20:55)
[2016-09-27] MEDS ORDERED: HEPARIN LOCK FLUSH 500 UNIT/5 ML SYRINGE IV ONE (03:42)
[2016-09-27] MEDS: MORPHINE 2 MG/1 ML SYRINGE IV PRN ×3 (03:49→17:09)
[2016-09-27] MEDS: ONDANSETRON 4 MG TABLET PO SCH ×4 (04:30→20:24)
[2016-09-27 05:49] LABS: Basophils % 0.1 % (0.0-0.8); Eosinophils % 0.5 % (0.00-10.9); Hematocrit 31.1 VOL% (35.7-47.0); Hemoglobin 9.9 GM/DL (12.0-16.0); Immature Granulocytes % 0.4 %; Immature Granulocytes Absolute 0.03 #; Lymphocytes # 1.4 10*3/uL (1.4-4.0); Lymphocytes % 19.2 % (21.3-54.2); Mean Corpuscular HGB Conc 31.8 GM/DL (32-36); Mean Corpuscular Hemoglobin 31 PG (27-34); Mean Corpuscular Volume 98.4 FL (87-102); Mean Platelet Volume 11.4 FL (9.6-12.0); Monocytes # 0.7 10*3/uL (0.11-0.8); Monocytes % 9.5 % (1.7-12.7); Neutrophils # 5.1 10*3/uL (1.4-7.4); Neutrophils % 70.3 % (38.7-73.9); Platelet Count 160 T/CUMM (130-400); Red Blood Count 3.16 MC/CUMM (3.8-5.5); Red Cell Distribution Width 15.3 % (9.3-17.3); White Blood Count 7.3 T/CUMM (4-12)
[2016-09-27 06:27] LABS: Bilirubin,Total 0.4 MG/DL (0.2-1.0); Calcium 9.4 MG/DL (8.5-10.1); Total Protein 6.3 G/DL (6.4-8.3)
[2016-09-27] MEDS: GRANISETRON 1 MG/1 ML VIAL IV SCH (09:01)
[2016-09-27] MEDS: MAGNESIUM CHLORIDE 64 MG TABLET PO SCH (09:04)
[2016-09-27] MEDS: METOPROLOL TARTRATE 50 MG TABLET PO SCH ×2 (09:04→17:08)
[2016-09-27] MEDS: LEVOTHYROXINE 50 MCG TABLET PO SCH (09:04)
[2016-09-27] MEDS: LOSARTAN 25 MG TABLET PO SCH (09:04)
[2016-09-27] MEDS: predniSONE 10 MG TABLET PO SCH (09:04)
[2016-09-27] MEDS: HYDROcodone/CHLORPHENIRAMINE ER 5 ML UDCUP PO SCH ×2 (09:04→20:25)
--- NOTE | 2016-09-27 09:16 | Oncology Progress Note ---
Oncology Subjective PN Interval history: Patient with small cell lung cancer admitted 4 days prior. She has received chemotherapy this admission and has an acceptable white blood cell count at this time. She is breathing comfortable with nasal cannula O2 in place. She reports right scapula and posterior thoracic pain at a level of 8. She is receiving 2 mg IV morphine as needed. She is on short acting narcotics at home. She is cared for by her sister and her son who live with her. She reports feeling too sick for discharge still at this time Exam - Constitutional Vitals: Period Temp Pulse Resp BP Sys/Carvajal Pulse Ox Last 24 Hr 96.5 F-98.1 F 56-124 16-28 107-129/67-86 93-100 Results - Labs CBC & BMP: 09/27/16 04:00 09/27/16 04:00 Specialty Discharge - Follow Up or Referrals
--- NOTE | 2016-09-27 10:00 | Physician Query Form ---
CLICK EDIT DOCUMENT TO SELECT QUERY ANSWER --> OK --> SIGN Lona Carlin RN Clinical [employer] W) [phone] (f) [phone] [email or web address] PROVIDERS: Make your selection(s) from the choices in EACH section by typing an "x" and enter comments in the comment section. Please use your independent medical judgment in providing your response. This request does not imply that any particular answer is desired or expected. CLINICAL INDICATORS: (Providers should not edit this section) Based on documentation of "she has severe COPD and its a major complication of treatment of her lung cancer because she is O2 dependent". Based on the above, could you clarify the appropriate diagnosis, if significant , that supports the above abnormalities and additional evaluation, monitoring, and/or treatment rendered: (x ) Pt. has chronic respiratory failure ( ) Pt. does not have chronic respiratory failure ( ) Other, please specify: ( ) Clinically unable to determine COMMENTS: PLEASE ALSO DOCUMENT RESPONSE IN PROGRESS NOTES AND/OR DISCHARGE SUMMARY Use of terms such as suspected, likely, or probable (associated with a specific diagnosis that is being evaluated, monitored, or treated as if it exists) are acceptable and can be restated in the discharge summary if not ruled out. MTDD
--- NOTE | 2016-09-27 11:25 | Pulmonology Progress Note ---
Pulmonary - PN: Subj Interval history: The patient is a 66-year-old black lady that has recurrent small cell carcinoma the lung. Now she has worsening tumor in the right lower trachea and obstructing the right upper lung. She apparently had hemoptysis at one time but she says her cough is better. She is not having any further hemoptysis. She says she feels a little better than yesterday. She is not as anxious or short of breath. She has been reasonably comfortable. She still cannot do much activity. Exam (Progress Note) - Constitutional Vitals: Period Temp Pulse Resp BP Sys/Carvajal Pulse Ox Last 24 Hr 96.5 F-98.1 F 56-105 16-28 107-129/67-77 93-100 Exam: General appearance: normal weight, she looks comfortable lying in bed but does get anxious quite easily. She looks like she is breathing a little better. - Head Head exam: Present: normal inspection, normocephalic - Eye Eye exam: Present: EOMI. Absent: scleral icterus Pupils: Present: АЛЕКСАНДР - ENT ENT exam: Present: normal exam - Neck Neck exam: Present: normal inspection. Absent: lymphadenopathy, thyromegaly - Respiratory Respiratory exam: Present: She still has very diminished breath sounds on the right compared to the left. I do not hear any wheezing. - Cardiovascular Cardiovascular exam: Present: regular rate and rhythm. Absent: gallop, systolic murmur - GI/Abdominal GI/Abdominal exam: Present: normal bowel sounds, soft. Absent: distended, organomegaly, tenderness - Extremities Exam Extremities exam: Absent: calf tenderness, edema - Neurological Exam Neurological exam: Present: alert, oriented X3, CN II-XII intact. Absent: motor sensory deficit - Psychiatric Psychiatric exam: Absent: She looks calmer and resting today. - Skin Skin exam: Present: warm, dry Results - Labs CBC & BMP: 09/27/16 04:00 09/27/16 04:00 Assessment and Plan (1) metastatic small cell lung cancer Status: Acute Assessment and plan: The patient apparently has recurrent small cell cancer of the lung. She received a course of chemotherapy. She is relatively comfortable at present. Current Visit: No (2) COPD (chronic obstructive pulmonary disease) Status: Chronic Assessment and plan: Patient is breathing comfortably now and will continue with bronchodilator therapy. Her shortness of breath is a little better today. Current Visit: No (3) Obstruction right upper lobe Status: Acute Assessment and plan: The patient has tumor in her distal trachea and obstructing the right upper lobe. She has not had any further hemoptysis. She is starting another round of chemotherapy. She cannot do much activity but she appears comfortable at rest. Current Visit: Yes Specialty Discharge - Follow Up or Referrals
[2016-09-27] MEDS: ONDANSETRON 4 MG/2 ML VIAL IV PRN (17:08)
[2016-09-27] MEDS: DOXEPIN 25 MG CAPSULE PO SCH (20:24)
[2016-09-27] MEDS: ALPRAZolam 0.25 MG TABLET PO PRN (20:27)
[2016-09-28] MEDS: ALPRAZolam 0.25 MG TABLET PO PRN (01:28)
[2016-09-28] MEDS: ONDANSETRON 4 MG TABLET PO SCH ×4 (02:26→20:31)
[2016-09-28 05:54] LABS: Basophils % 0.2 % (0.0-0.8); Eosinophils # 0.1 10*3/uL (0.0-0.87); Eosinophils % 0.8 % (0.00-10.9); Hemoglobin 9.1 GM/DL (12.0-16.0); Immature Granulocytes % 0.3 %; Immature Granulocytes Absolute 0.02 #; Lymphocytes # 1.1 10*3/uL (1.4-4.0); Lymphocytes % 17.4 % (21.3-54.2); Mean Corpuscular HGB Conc 32.5 GM/DL (32-36); Mean Corpuscular Hemoglobin 32 PG (27-34); Mean Corpuscular Volume 97.6 FL (87-102); Mean Platelet Volume 11.6 FL (9.6-12.0); Monocytes # 0.6 10*3/uL (0.11-0.8); Neutrophils # 4.7 10*3/uL (1.4-7.4); Neutrophils % 72.3 % (38.7-73.9); Platelet Count 144 T/CUMM (130-400); Red Blood Count 2.87 MC/CUMM (3.8-5.5); Red Cell Distribution Width 15.1 % (9.3-17.3); White Blood Count 6.5 T/CUMM (4-12)
[2016-09-28 06:17] LABS: Albumin 2.9 G/DL (3.4-5.0); Bilirubin,Total 0.8 MG/DL (0.2-1.0); Calcium 9.1 MG/DL (8.5-10.1); Osmolality,Calculated 280.1 MOS/KG (273-304); Potassium 3.9 MMOL/L (3.5-5.1); Total Protein 5.9 G/DL (6.4-8.3)
[2016-09-28] MEDS: MORPHINE 2 MG/1 ML SYRINGE IV PRN ×3 (08:48→17:05)
[2016-09-28] MEDS: GRANISETRON 1 MG/1 ML VIAL IV SCH (08:48)
[2016-09-28] MEDS: LEVOTHYROXINE 50 MCG TABLET PO SCH (08:48)
[2016-09-28] MEDS: HYDROcodone/CHLORPHENIRAMINE ER 5 ML UDCUP PO SCH ×2 (08:48→20:32)
[2016-09-28] MEDS: METOPROLOL TARTRATE 50 MG TABLET PO SCH ×2 (08:48→16:38)
[2016-09-28] MEDS: predniSONE 10 MG TABLET PO SCH (08:49)
[2016-09-28] MEDS: MAGNESIUM CHLORIDE 64 MG TABLET PO SCH (08:49)
[2016-09-28] MEDS: LOSARTAN 25 MG TABLET PO SCH (08:49)
--- NOTE | 2016-09-28 10:24 | Pulmonology Progress Note ---
Pulmonary - PN: Subj Interval history: The patient is a 66-year-old black lady that has recurrent small cell carcinoma the lung. Now she has worsening tumor in the right lower trachea and obstructing the right upper lung. She apparently had hemoptysis at one time but she says her cough is better. She is not having any further hemoptysis. She says she is resting okay but still gets short of breath with any activity. She is a little anxious at times. Overall she is about the same. Exam (Progress Note) - Constitutional Vitals: Period Temp Pulse Resp BP Sys/Carvajal Pulse Ox Last 24 Hr 87.8 F-98.5 F 68-100 18-26 102-124/57-72 92-98 Exam: General appearance: normal weight, she looks comfortable lying in bed but does get anxious quite easily. She looks like she is breathing a little better. - Head Head exam: Present: normal inspection, normocephalic - Eye Eye exam: Present: EOMI. Absent: scleral icterus Pupils: Present: АЛЕКСАНДР - ENT ENT exam: Present: normal exam - Neck Neck exam: Present: normal inspection. Absent: lymphadenopathy, thyromegaly - Respiratory Respiratory exam: Present: She still has very diminished breath sounds on the right compared to the left. I do not hear any wheezing. Her breathing is about the same. - Cardiovascular Cardiovascular exam: Present: regular rate and rhythm. Absent: gallop, systolic murmur - GI/Abdominal GI/Abdominal exam: Present: normal bowel sounds, soft. Absent: distended, organomegaly, tenderness - Extremities Exam Extremities exam: Absent: calf tenderness, edema - Neurological Exam Neurological exam: Present: alert, oriented X3, CN II-XII intact. Absent: motor sensory deficit - Psychiatric Psychiatric exam: Absent: She looks calmer and resting today. - Skin Skin exam: Present: warm, dry Results - Labs CBC & BMP: 09/28/16 04:00 09/28/16 04:00 Assessment and Plan (1) metastatic small cell lung cancer Status: Acute Assessment and plan: The patient apparently has recurrent small cell cancer of the lung. She received a course of chemotherapy. She is relatively comfortable at present. Her overall outlook is poor Current Visit: No (2) COPD (chronic obstructive pulmonary disease) Status: Chronic Assessment and plan: Patient is breathing comfortably now and will continue with bronchodilator therapy. Her shortness of breath is a little better today. She still requires oxygen and is unable to do much activity. We will continue present therapy. Current Visit: No (3) Obstruction right upper lobe Status: Acute Assessment and plan: The patient has tumor in her distal trachea and obstructing the right upper lobe. She has not had any further hemoptysis. She is starting another round of chemotherapy. She cannot do much activity but she appears comfortable at rest. Current Visit: Yes Specialty Discharge - Follow Up or Referrals
[2016-09-28] MEDS: ONDANSETRON 4 MG/2 ML VIAL IV PRN (13:32)
--- NOTE | 2016-09-28 14:58 | Oncology Progress Note ---
Oncology Subjective PN Interval history: The patient appears stable today. She is on nasal cannula. She is pleasant and cooperative. Awake alert and interactive. Respiratory effort is nonlabored. No leg edema abdomen is soft nontender. Heart rhythm is regular. I have encouraged ambulation and I believe she is receiving physical therapy. Her labs postchemotherapy are acceptable today. Continuing with present care. Exam - Constitutional Vitals: Period Temp Pulse Resp BP Sys/Carvajal Pulse Ox Last 24 Hr 87.8 F-98.1 F 68-103 18-26 102-120/57-72 92-98 Results - Labs CBC & BMP: 09/28/16 04:00 09/28/16 04:00 Specialty Discharge - Follow Up or Referrals
[2016-09-28] MEDS: DOXEPIN 25 MG CAPSULE PO SCH (20:31)
[2016-09-29] MEDS: ONDANSETRON 4 MG TABLET PO SCH ×4 (02:09→20:13)
[2016-09-29 04:13] LABS: Basophils % 0.2 % (0.0-0.8); Eosinophils # 0.1 10*3/uL (0.0-0.87); Eosinophils % 1.4 % (0.00-10.9); Hematocrit 27.1 VOL% (35.7-47.0); Hemoglobin 8.8 GM/DL (12.0-16.0); Immature Granulocytes % 0.4 %; Immature Granulocytes Absolute 0.02 #; Lymphocytes # 1.2 10*3/uL (1.4-4.0); Lymphocytes % 23.4 % (21.3-54.2); Mean Corpuscular HGB Conc 32.5 GM/DL (32-36); Mean Corpuscular Hemoglobin 32 PG (27-34); Mean Corpuscular Volume 97.8 FL (87-102); Mean Platelet Volume 10.2 FL (9.6-12.0); Monocytes # 0.3 10*3/uL (0.11-0.8); Monocytes % 6.3 % (1.7-12.7); Neutrophils # 3.4 10*3/uL (1.4-7.4); Neutrophils % 68.3 % (38.7-73.9); Platelet Count 149 T/CUMM (130-400); Red Blood Count 2.77 MC/CUMM (3.8-5.5); Red Cell Distribution Width 14.6 % (9.3-17.3); White Blood Count 4.9 T/CUMM (4-12)
[2016-09-29 05:04] LABS: Albumin 2.6 G/DL (3.4-5.0); Bilirubin,Total 0.4 MG/DL (0.2-1.0); Osmolality,Calculated 280.1 MOS/KG (273-304); Potassium 3.6 MMOL/L (3.5-5.1); Total Protein 5.6 G/DL (6.4-8.3)
[2016-09-29 05:56] LABS: Platelet Estimate Normal
[2016-09-29] MEDS: ALPRAZolam 0.25 MG TABLET PO PRN (06:08)
--- NOTE | 2016-09-29 08:20 | EKG Report ---
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
[2016-09-29] MEDS: MAGNESIUM CHLORIDE 64 MG TABLET PO SCH (08:44)
[2016-09-29] MEDS: METOPROLOL TARTRATE 50 MG TABLET PO SCH ×2 (08:44→17:06)
[2016-09-29] MEDS: LEVOTHYROXINE 50 MCG TABLET PO SCH (08:44)
[2016-09-29] MEDS: predniSONE 10 MG TABLET PO SCH (08:44)
[2016-09-29] MEDS: LOSARTAN 25 MG TABLET PO SCH (08:45)
[2016-09-29] MEDS: HYDROcodone/CHLORPHENIRAMINE ER 5 ML UDCUP PO SCH ×2 (08:45→20:16)
[2016-09-29] MEDS: GRANISETRON 1 MG/1 ML VIAL IV SCH (08:45)
[2016-09-29] MEDS ORDERED: DILTIAZEM 50 MG/10 ML VIAL IV ONE (09:01)
[2016-09-29] MEDS ORDERED: DILTIAZEM 100 MG VIAL.ADD IV ONE (09:12)
[2016-09-29] MEDS: DILTIAZEM INJ 100 MG in SODIUM CHLORIDE 0.9% 100 ML IV SCH (09:31)
--- NOTE | 2016-09-29 09:57 | Pulmonology Progress Note ---
Pulmonary - PN: Subj Interval history: The patient is a 66-year-old black lady that has recurrent small cell carcinoma the lung. Now she has worsening tumor in the right lower trachea and obstructing the right upper lung. She apparently had hemoptysis at one time but she says her cough is better. She is not having any further hemoptysis. This morning she had more distress and was found to have rapid atrial fibrillation. She has been moved to the ICU for monitoring. Her heart rate was up to 160 but she is doing a little better on a Cardizem infusion now. She says she is getting her hair little better and is more comfortable. Her breathing has not changed much. She is in atrial fibrillation now. Exam (Progress Note) - Constitutional Vitals: Period Temp Pulse Resp BP Sys/Carvajal Pulse Ox Last 24 Hr 96.9 F-97.9 F 70-169 16-24 96-110/59-74 91-99 Exam: General appearance: normal weight, she looks comfortable lying in bed with low flow oxygen in place. Her heart rate is around 120 now. - Head Head exam: Present: normal inspection, normocephalic - Eye Eye exam: Present: EOMI. Absent: scleral icterus Pupils: Present: АЛЕКСАНДР - ENT ENT exam: Present: normal exam - Neck Neck exam: Present: normal inspection. Absent: lymphadenopathy, thyromegaly - Respiratory Respiratory exam: Present: She still has very diminished breath sounds on the right compared to the left. I do not hear any wheezing. Her breathing is about the same. - Cardiovascular Cardiovascular exam: Present: She has an irregularly irregular rhythm with a rate of around 120. - GI/Abdominal GI/Abdominal exam: Present: normal bowel sounds, soft. Absent: distended, organomegaly, tenderness - Extremities Exam Extremities exam: Absent: calf tenderness, edema - Neurological Exam Neurological exam: Present: alert, oriented X3, CN II-XII intact. Absent: motor sensory deficit - Psychiatric Psychiatric exam: Absent: She is resting comfortably at present. - Skin Skin exam: Present: warm, dry Results - Labs CBC & BMP: 09/29/16 04:00 09/29/16 04:00 Assessment and Plan (1) metastatic small cell lung cancer Status: Acute Assessment and plan: The patient apparently has recurrent small cell cancer of the lung. She received a course of chemotherapy. She is relatively comfortable at present. Her overall outlook is poor Current Visit: No (2) COPD (chronic obstructive pulmonary disease) Status: Chronic Assessment and plan: Patient is breathing comfortably now and will continue with bronchodilator therapy. Her shortness of breath is a little better today. She still requires oxygen and is unable to do much activity. Her O2 saturations are adequate on low-flow oxygen. Current Visit: No (3) Obstruction right upper lobe Status: Acute Assessment and plan: The patient has tumor in her distal trachea and obstructing the right upper lobe. She has not had any further hemoptysis. She tolerated her chemotherapy well last week. Will check a chest x-ray tomorrow. Current Visit: Yes (4) Atrial fibrillation with RVR Status: Acute Assessment and plan: The patient is on a Cardizem infusion and her heart rate is a little better now. Current Visit: Yes Specialty Discharge - Follow Up or Referrals
--- NOTE | 2016-09-29 10:22 | Oncology Progress Note ---
Oncology Subjective PN Interval history: Patient with small cell lung cancer. Patient reports doing well overnight and developed cough this morning. She was noted to have tachycardia with a rate near 170. She was transferred to MICU and Cardizem infusion has been initiated. On examination now she is comfortable. Her heart rate is 95 but remains irregular. Her abdomen is soft and nontender. Her lungs are clear to auscultation bilaterally without wheezes or crackles. She appears nontoxic and we will continue observation. I am placing her on Lovenox 1 mg/kg every 12 hours for the short-term. Cardiology consultation may be salt tomorrow. Exam - Constitutional Vitals: Period Temp Pulse Resp BP Sys/Carvajal Pulse Ox Last 24 Hr 96.9 F-97.9 F 70-169 16-22 96-110/59-74 91-99 Results - Labs CBC & BMP: 09/29/16 04:00 09/29/16 04:00 Specialty Discharge - Follow Up or Referrals
[2016-09-29] MEDS: ENOXAPARIN 60 MG/0.6 ML SYRINGE SUBCUT SCH ×2 (12:30→23:16)
[2016-09-29] MEDS: MORPHINE 2 MG/1 ML SYRINGE IV PRN (15:49)
[2016-09-29] MEDS: DOXEPIN 25 MG CAPSULE PO SCH (20:13)
[2016-09-30] MEDS: ONDANSETRON 4 MG TABLET PO SCH ×4 (04:29→20:59)
[2016-09-30] MEDS: guaiFENesin 200 MG/10 ML UDCUP PO PRN (05:39)
[2016-09-30] MEDS: MORPHINE 2 MG/1 ML SYRINGE IV PRN (05:49)
[2016-09-30 05:51] LABS: Basophils % 0.2 % (0.0-0.8); Eosinophils # 0.1 10*3/uL (0.0-0.87); Eosinophils % 1.1 % (0.00-10.9); Hematocrit 27.3 VOL% (35.7-47.0); Hemoglobin 8.8 GM/DL (12.0-16.0); Immature Granulocytes % 0.7 %; Immature Granulocytes Absolute 0.03 #; Lymphocytes # 1.1 10*3/uL (1.4-4.0); Mean Corpuscular HGB Conc 32.2 GM/DL (32-36); Mean Corpuscular Hemoglobin 32 PG (27-34); Mean Corpuscular Volume 97.8 FL (87-102); Mean Platelet Volume 11.1 FL (9.6-12.0); Monocytes # 0.2 10*3/uL (0.11-0.8); Neutrophils # 3.1 10*3/uL (1.4-7.4); Platelet Count 178 T/CUMM (130-400); Red Blood Count 2.79 MC/CUMM (3.8-5.5); Red Cell Distribution Width 14.4 % (9.3-17.3); White Blood Count 4.5 T/CUMM (4-12)
[2016-09-30] MEDS: ALBUTEROL 2.5 MG/3 ML NEB RESP TX PRN (05:54)
[2016-09-30 06:13] LABS: Band Neutrophils 1 % (0-10); Lymphocytes 28 % (20-55); Segmented Neutrophils 68 % (50-85); Total Cells Counted 100
[2016-09-30 06:14] LABS: Platelet Estimate Normal
[2016-09-30 06:31] LABS: Albumin 2.6 G/DL (3.4-5.0); Bilirubin,Total 0.8 MG/DL (0.2-1.0); Calcium 8.9 MG/DL (8.5-10.1); Osmolality,Calculated 282.1 MOS/KG (273-304); Potassium 3.8 MMOL/L (3.5-5.1); Total Protein 5.7 G/DL (6.4-8.3)
--- NOTE | 2016-09-30 07:01 | Pulmonology Progress Note ---
Pulmonary - PN: Subj Interval history: This 66-year-old white female has progressive small cell lung cancer. It appears that she now has almost a total obstruction of the right lung. I had thought she had received radiation therapy previously but she tells me she has not. I will discuss this with Dr. Reddy. Radiation may be helpful in this circumstance. Exam (Progress Note) - Constitutional Vitals: Period Temp Pulse Resp BP Sys/Carvajal Pulse Ox Last 24 Hr 97.0 F-99.0 F 54-169 12-28 90-128/57-94 89-99 Exam: Patient's alert oriented vital signs normal pulse is about 105 and regular. Pupils react to light. Throat is clear. Neck supple no bruits. Chest reveals decreased breath sounds on the right. Left lung is clear. Heart normal rate and rhythm no murmurs. Abdomen soft nontender no masses. Extremities no clubbing cyanosis or edema. Calves nontender Results - Labs CBC & BMP: 09/30/16 04:43 09/30/16 04:43 Lab Results: I have reviewed the past 24 hour labs - Diagnostic Findings Procedure: Chest x-ray: image reviewed by me (Right lung almost completely lori out. Left lung is clear) Assessment and Plan (1) Obstruction right upper lobe Status: Acute Assessment and plan: Plan for bronchoscopy outpatient this morning. Please see dictation from that obstruction of right mainstem bronchus at this point. Consider radiation. External beem versus brachytherapy. Current Visit: Yes (2) metastatic small cell lung cancer Status: Acute Assessment and plan: Has known small cell lung cancer right lung with widespread metastasis. 09/30/2016 patient getting third line chemotherapy at this point. Current Visit: No (3) COPD (chronic obstructive pulmonary disease) Status: Chronic Assessment and plan: Chronic obstructive pulmonary disease treated with bronchodilators. She relates that one of the inhalers that we have prescribed she was not able to purchase. 09/30/2016 nasal oxygen and bronchodilators are helping. Oxygen saturation 96% on 2 L Current Visit: No Specialty Discharge - Follow Up or Referrals
--- NOTE | 2016-09-30 07:28 | Oncology Progress Note ---
Oncology Subjective PN Interval history: Ms. Pearson was admitted with progression of small cell lung cancer with growth into the right mainstem bronchus that had progressed from last previous bronchoscopy. She received chemotherapy consisting of BCNU 100 mg IV and Cytoxan 1000 mg IV on September 25, 2016. This was third line chemotherapy. Her illness is complicated by anemia as well as by intermittent leukopenia and thrombocytopenia secondary to chemotherapy and she also has severe debilitating COPD. Her chest x-ray has worsened and there is increased opacification in the right lung. There is a small amount of aeration in the apex now. Dr. Martinez is suggested radiation. The patient has been reluctant to accept it in the past but is willing to talk to Dr. White about it. I think she can be moved back to the oncology unit at this point. She is back in sinus rhythm now. She has a cough but she has had no sputum production or hemoptysis. She has pain in the right upper anterior chest on respiration but no other chest pain and no radiation of pain to her neck or arms. She is dyspneic and she is also anxious. Initially she said she was not interested in radiation but then told me that she would be willing to consider it. Blood work today includes a white cell count of 4500 with a hemoglobin of 8.8 and a platelet count of 178,000. Her comprehensive metabolic profile is essentially normal. On physical examination she is oriented 4. She is tachypneic. Her hearing is normal. Cranial nerves II through XII are intact and there are no focal neurologic deficits. Her voice is clear and her trachea is midline. Breath sounds are decreased throughout the right lung and coarse throughout the left lung. She has tachycardia without murmur, gallop, rub or jugular venous distention. She has no abdominal tenderness or organomegaly and no ascites. See my orders. Exam - Constitutional Vitals: Period Temp Pulse Resp BP Sys/Carvajal Pulse Ox Last 24 Hr 97.0 F-99.0 F 54-169 12-28 90-128/57-94 89-99 Results - Labs CBC & BMP: 09/30/16 04:43 09/30/16 04:43 Specialty Discharge - Follow Up or Referrals
--- NOTE | 2016-09-30 07:56 | XRay Report ---
XR chest 1V portable Indication: Lung cancer Comparison: 23 September 2016 Findings: The heart and mediastinum are similar in size and configuration. Left subclavian Port-A-Cath is unchanged in position. The pulmonary vascularity is normal in caliber. There is increased right lung density and effusion compared to previous. No other lung infiltrates, effusions, pneumothorax or other abnormality is demonstrated. Impression: Increasing right lung density and effusion when compared to previous study. No other significant changes. PROCEDURE INTERPRETED AT [facility] DEPARTMENT OF RADIOLOGY Final Report Signed by: Dr. Tiburcio Lamar
[2016-09-30] MEDS: DILTIAZEM INJ 100 MG in SODIUM CHLORIDE 0.9% 100 ML IV SCH (09:00)
[2016-09-30] MEDS: LEVOTHYROXINE 50 MCG TABLET PO SCH (09:15)
[2016-09-30] MEDS: predniSONE 10 MG TABLET PO SCH (09:15)
[2016-09-30] MEDS: METOPROLOL TARTRATE 50 MG TABLET PO SCH ×2 (09:15→18:40)
[2016-09-30] MEDS: HYDROcodone/CHLORPHENIRAMINE ER 5 ML UDCUP PO SCH ×2 (09:15→20:59)
[2016-09-30] MEDS: MAGNESIUM CHLORIDE 64 MG TABLET PO SCH (09:15)
[2016-09-30] MEDS: GRANISETRON 1 MG/1 ML VIAL IV SCH (09:15)
[2016-09-30] MEDS: LOSARTAN 25 MG TABLET PO SCH (09:15)
[2016-09-30] MEDS: ENOXAPARIN 60 MG/0.6 ML SYRINGE SUBCUT SCH ×2 (10:10→22:12)
[2016-09-30] MEDS: DOCUSATE SODIUM 100 MG CAPSULE PO PRN (12:44)
[2016-09-30] MEDS: FUROSEMIDE 40 MG TABLET PO SCH (12:44)
[2016-09-30] MEDS: ASPIRIN EC 81 MG TABLET PO SCH (12:44)
[2016-09-30] MEDS: ALPRAZolam 0.25 MG TABLET PO PRN (15:32)
[2016-09-30] MEDS: DOXEPIN 25 MG CAPSULE PO SCH (20:59)
[2016-10-01] MEDS: ONDANSETRON 4 MG TABLET PO SCH ×4 (03:05→20:06)
[2016-10-01 05:20] LABS: Basophils % 0.6 % (0.0-0.8); Eosinophils % 1.1 % (0.00-10.9); Hematocrit 26.5 VOL% (35.7-47.0); Hemoglobin 8.7 GM/DL (12.0-16.0); Immature Granulocytes % 0.8 %; Immature Granulocytes Absolute 0.03 #; Lymphocytes # 1.1 10*3/uL (1.4-4.0); Lymphocytes % 31.1 % (21.3-54.2); Mean Corpuscular HGB Conc 32.8 GM/DL (32-36); Mean Corpuscular Hemoglobin 32 PG (27-34); Mean Corpuscular Volume 97.1 FL (87-102); Mean Platelet Volume 10.9 FL (9.6-12.0); Monocytes # 0.2 10*3/uL (0.11-0.8); Monocytes % 5.3 % (1.7-12.7); Neutrophils # 2.2 10*3/uL (1.4-7.4); Neutrophils % 61.1 % (38.7-73.9); Platelet Count 188 T/CUMM (130-400); Red Blood Count 2.73 MC/CUMM (3.8-5.5); Red Cell Distribution Width 14.4 % (9.3-17.3); White Blood Count 3.6 T/CUMM (4-12)
[2016-10-01 05:41] LABS: Hypochromasia 1+; Ovalocytes Slight; Platelet Estimate Normal
[2016-10-01 06:12] LABS: Alanine Aminotransferase 30 U/L (13-56); Albumin 2.8 G/DL (3.4-5.0); Alkaline Phosphatase 71 U/L (45-117); Aspartate Amino Transferase 25 U/L (0-37); Bilirubin,Total < 0.39 MG/DL (0.2-1.0); Blood Urea Nitrogen 13 MG/DL (7-18); Calcium 9.1 MG/DL (8.5-10.1); Glucose 82 MG/DL (74-106); Osmolality,Calculated 279.3 MOS/KG (273-304); Potassium 3.5 MMOL/L (3.5-5.1); Sodium 141 MMOL/L (136-145); Total Protein 5.9 G/DL (6.4-8.3)
[2016-10-01] MEDS: MORPHINE 2 MG/1 ML SYRINGE IV PRN ×4 (07:10→18:58)
--- NOTE | 2016-10-01 07:42 | Oncology Progress Note ---
Oncology Subjective PN Interval history: Ms. Pearson was admitted with progression of small cell lung cancer with growth into the right mainstem bronchus that had progressed from last previous bronchoscopy. She received chemotherapy consisting of BCNU 100 mg IV and Cytoxan 1000 mg IV on September 25, 2016. This was third line chemotherapy. Her illness is complicated by anemia as well as by intermittent leukopenia and thrombocytopenia secondary to chemotherapy and she also has severe debilitating COPD. Her chest x-ray has worsened and there is increased opacification in the right lung. Dr. Martinez is suggested radiation. The patient has been reluctant to accept it in the past but is willing to talk to Dr. White about it. That consultation is pending. The patient is back on 4 E. now. She continues to be dyspneic. She has a cough with sputum production. She has chest pain on the right side. Her appetite is not good. She has had no hemoptysis and she has had no nausea or vomiting. She is on cardiac monitoring because of supraventricular tachycardia. Physical examination: She is chronically ill-appearing and tachypneic. Eyes: Normal lids and conjunctivae. ENT: Her trachea is midline. Her hearing is normal. She has no neck masses. Lungs: Absent breath sounds throughout most of the right lung except apex. Coarse breath sounds in the left lung. Cardiovascular: Currently regular rhythm. No murmur, gallop or rub. Abdomen: No ascites, masses or organomegaly. Neurologic: Cranial nerves II through XII are intact. There are no focal neurologic deficits. Psychiatric: She is depressed and anxious. We will continue to monitor lab work. We will continue to monitor her heart rhythm because of SVT. She is anemic enough that I am proceeding with blood transfusions today. Exam - Constitutional Vitals: Period Temp Pulse Resp BP Sys/Carvajal Pulse Ox Last 24 Hr 96.2 F-99.5 F 55-100 14-24 107-124/55-87 90-99 Results - Labs CBC & BMP: 10/01/16 04:19 10/01/16 04:19 Specialty Discharge - Follow Up or Referrals
[2016-10-01] MEDS ORDERED: SODIUM CHLORIDE 0.9% 250 ML IV PRN (08:37)
[2016-10-01] MEDS: DOCUSATE SODIUM 100 MG CAPSULE PO PRN (08:47)
[2016-10-01] MEDS: LOSARTAN 25 MG TABLET PO SCH (08:47)
[2016-10-01] MEDS: ASPIRIN EC 81 MG TABLET PO SCH (08:47)
[2016-10-01] MEDS: FUROSEMIDE 40 MG TABLET PO SCH (08:47)
[2016-10-01] MEDS: MAGNESIUM CHLORIDE 64 MG TABLET PO SCH (08:47)
[2016-10-01] MEDS: LEVOTHYROXINE 50 MCG TABLET PO SCH (08:48)
[2016-10-01] MEDS: ENOXAPARIN 60 MG/0.6 ML SYRINGE SUBCUT SCH ×3 (08:48→23:52)
[2016-10-01] MEDS: METOPROLOL TARTRATE 50 MG TABLET PO SCH ×2 (08:48→17:27)
[2016-10-01] MEDS: predniSONE 10 MG TABLET PO SCH (08:48)
[2016-10-01] MEDS: GRANISETRON 1 MG/1 ML VIAL IV SCH (08:48)
[2016-10-01] MEDS: HYDROcodone/CHLORPHENIRAMINE ER 5 ML UDCUP PO SCH ×2 (08:48→20:08)
[2016-10-01] MEDS: DILTIAZEM INJ 100 MG in SODIUM CHLORIDE 0.9% 100 ML IV SCH (10:44)
[2016-10-01] MEDS ORDERED: HEPARIN LOCK FLUSH 500 UNIT/5 ML SYRINGE IV ONE (11:46)
--- NOTE | 2016-10-01 14:04 | CT Report ---
Referring physician: Teodoro Reddy EXAM: CT treatment planning DATE: 10/01/2016 COMPARISON: 07/08/2016 REASON: Lung cancer TECHNIQUE: Axial images of the chest were obtained without the use of IV contrast. Total DLP is 747.3 mGy*cm. FINDINGS: The heart remains enlarged with coronary artery calcifications and small pericardial effusion. Persistent large right paramediastinal/hilar mass with persistent significant lymphadenopathy and bronchial obstruction. Mass/adenopathy involves the area of the IVC with residual loculated pleural effusion, pleural thickening, associated parenchymal pathology, and osseous metastatic disease. IMPRESSION: The scans appear adequate for radiation therapy planning purposes in patient with known carcinoma of the lung. The CT exam was performed using one or more of the following dose reduction techniques: Automated exposure control and adjustment of the mA and/or kV according to patient size. PROCEDURE INTERPRETED AT [facility] DEPARTMENT OF RADIOLOGY Final Report Signed by: Dr. Coco Perez
[2016-10-01] MEDS: DOXEPIN 25 MG CAPSULE PO SCH (20:06)
[2016-10-02] MEDS: MORPHINE 2 MG/1 ML SYRINGE IV PRN (03:59)
[2016-10-02] MEDS: guaiFENesin 200 MG/10 ML UDCUP PO PRN (04:01)
[2016-10-02] MEDS: ONDANSETRON 4 MG TABLET PO SCH ×4 (04:19→20:44)
[2016-10-02 04:57] LABS: Basophils % 0.8 % (0.0-0.8); Eosinophils % 1.2 % (0.00-10.9); Hematocrit 38.2 VOL% (35.7-47.0); Hemoglobin 12.9 GM/DL (12.0-16.0); Immature Granulocytes % 1.2 %; Immature Granulocytes Absolute 0.03 #; Lymphocytes % 38.4 % (21.3-54.2); Mean Corpuscular HGB Conc 33.8 GM/DL (32-36); Mean Corpuscular Hemoglobin 32 PG (27-34); Mean Corpuscular Volume 93.9 FL (87-102); Mean Platelet Volume 10.4 FL (9.6-12.0); Monocytes # 0.2 10*3/uL (0.11-0.8); Monocytes % 7.8 % (1.7-12.7); Neutrophils # 1.3 10*3/uL (1.4-7.4); Neutrophils % 50.6 % (38.7-73.9); Platelet Count 198 T/CUMM (130-400); Red Blood Count 4.07 MC/CUMM (3.8-5.5); Red Cell Distribution Width 14.9 % (9.3-17.3); White Blood Count 2.6 T/CUMM (4-12)
[2016-10-02 05:21] LABS: Hypochromasia 1+; Ovalocytes Slight; Platelet Estimate Normal
[2016-10-02 05:33] LABS: Albumin 3.1 G/DL (3.4-5.0); Bilirubin,Total 0.6 MG/DL (0.2-1.0); Calcium 9.2 MG/DL (8.5-10.1); Osmolality,Calculated 282.1 MOS/KG (273-304); Potassium 3.4 MMOL/L (3.5-5.1); Total Protein 6.5 G/DL (6.4-8.3)
--- NOTE | 2016-10-02 07:15 | Pulmonology Progress Note ---
Pulmonary - PN: Subj Interval history: This 66-year-old white female has progressive small cell lung cancer. It appears that she now has almost a total obstruction of the right lung. I had thought she had received radiation therapy previously but she tells me she has not. I will discuss this with Dr. Reddy. Radiation may be helpful in this circumstance. 10/02/[address] to start radiation to the right hilar area. Hopefully this will open up at least part of her right lung. Exam (Progress Note) - Constitutional Vitals: Period Temp Pulse Resp BP Sys/Carvajal Pulse Ox Last 24 Hr 96.6 F-98.1 F 58-92 20-23 100-153/72-83 85-98 Exam: Patient's alert oriented vital signs normal pulse is about 105 and regular. Pupils react to light. Throat is clear. Neck supple no bruits. Chest reveals decreased breath sounds on the right. Left lung is clear. Heart normal rate and rhythm no murmurs. Abdomen soft nontender no masses. Extremities no clubbing cyanosis or edema. Calves nontender. Little change from yesterday. Results - Labs CBC & BMP: 10/02/16 03:56 10/02/16 04:00 Lab Results: I have reviewed the past 24 hour labs Assessment and Plan (1) Obstruction right upper lobe Status: Acute Assessment and plan: Plan for bronchoscopy outpatient this morning. Please see dictation from that obstruction of right mainstem bronchus at this point. Consider radiation. External beem versus brachytherapy. 10/02/2016 appears to have total right lung obstruction at present. To start radiation soon. Tumor is very friable and would be difficult to treat locally. Current Visit: Yes (2) metastatic small cell lung cancer Status: Acute Assessment and plan: Has known small cell lung cancer right lung with widespread metastasis. 09/30/2016 patient getting third line chemotherapy at this point. 10/02/2016 continuing with chemotherapy. Current Visit: No (3) COPD (chronic obstructive pulmonary disease) Status: Chronic Assessment and plan: Chronic obstructive pulmonary disease treated with bronchodilators. She relates that one of the inhalers that we have prescribed she was not able to purchase. 09/30/2016 nasal oxygen and bronchodilators are helping. Oxygen saturation 96% on 2 L 10/02/2016 nasal oxygen and bronchodilators. Current Visit: No Specialty Discharge - Follow Up or Referrals
--- NOTE | 2016-10-02 07:18 | Pulmonology Progress Note ---
Pulmonary - PN: Subj Interval history: This 66-year-old black female has advanced small cell lung cancer. I saw her yesterday and discussed the case with Dr. Reddy. I dictated a note but it did not get placed in the chart. This note is 4 10/01/2016. We discussed radiation and she is going to have it. Exam (Progress Note) - Constitutional Vitals: Period Temp Pulse Resp BP Sys/Carvajal Pulse Ox Last 24 Hr 96.6 F-98.1 F 58-92 20-23 100-153/72-83 85-98 General appearance: no severe distress Exam: Patient's alert oriented vital signs normal pulse is about 105 and regular. Pupils react to light. Throat is clear. Neck supple no bruits. Chest reveals decreased breath sounds on the right. Left lung is clear. Heart normal rate and rhythm no murmurs. Abdomen soft nontender no masses. Extremities no clubbing cyanosis or edema. Calves nontender. Little change from yesterday. Results - Labs CBC & BMP: 10/02/16 03:56 10/02/16 04:00 Assessment and Plan (1) Obstruction right upper lobe Status: Acute Assessment and plan: Plan for bronchoscopy outpatient this morning. Please see dictation from that obstruction of right mainstem bronchus at this point. Consider radiation. External beem versus brachytherapy. 10/01/2016 right lung is obstructed. Needs radiation. Discussed case with Dr. Reddy. 10/02/2016 appears to have total right lung obstruction at present. To start radiation soon. Tumor is very friable and would be difficult to treat locally. Current Visit: Yes (2) metastatic small cell lung cancer Status: Acute Assessment and plan: Has known small cell lung cancer right lung with widespread metastasis. 09/30/2016 patient getting third line chemotherapy at this point. 10/01/2016 patient getting chemotherapy 10/02/2016 continuing with chemotherapy. Current Visit: No (3) COPD (chronic obstructive pulmonary disease) Status: Chronic Assessment and plan: Chronic obstructive pulmonary disease treated with bronchodilators. She relates that one of the inhalers that we have prescribed she was not able to purchase. 09/30/2016 nasal oxygen and bronchodilators are helping. Oxygen saturation 96% on 2 L 10/01/2016 adequately oxygenated with current therapy. 10/02/2016 nasal oxygen and bronchodilators. Current Visit: No Specialty Discharge - Follow Up or Referrals
--- NOTE | 2016-10-02 07:53 | Oncology Progress Note ---
Oncology Subjective PN Interval history: Ms. Pearson was admitted with progression of small cell lung cancer with growth into the right mainstem bronchus that had progressed from last previous bronchoscopy. She received chemotherapy consisting of BCNU 100 mg IV and Cytoxan 1000 mg IV on September 25, 2016. This was third line chemotherapy. Her illness is complicated by anemia as well as by intermittent leukopenia and thrombocytopenia secondary to chemotherapy and she also has severe debilitating COPD. Her chest x-ray has worsened and there is increased opacification in the right lung. There is a small amount of aeration in the apex now. Dr. Martinez is suggested radiation. The patient has been reluctant to accept it in the past but is willing to talk to Dr. White about it. I think she can be moved back to the oncology unit at this point. She is back in sinus rhythm now. She has a cough but she has had no sputum production or hemoptysis. She has pain in the right upper anterior chest on respiration but no other chest pain and no radiation of pain to her neck or arms. She is dyspneic and she is also anxious. Initially she said she was not interested in radiation but then told me that she would be willing to consider it. Blood work today includes a hemoglobin of 12.9. Her white cell count is down to 2600 with an absolute neutrophil count of 1300. I am starting her on granulocyte colony-stimulating factor because her blood count will probably drop more. Radiation oncology has been consulted. Exam - Constitutional Vitals: Period Temp Pulse Resp BP Sys/Carvajal Pulse Ox Last 24 Hr 96.6 F-98.1 F 58-92 20-23 100-153/72-83 85-98 Results - Labs CBC & BMP: 10/02/16 03:56 10/02/16 04:00 Specialty Discharge - Follow Up or Referrals
[2016-10-02] MEDS: GRANISETRON 1 MG/1 ML VIAL IV SCH (09:22)
[2016-10-02] MEDS: HYDROcodone/CHLORPHENIRAMINE ER 5 ML UDCUP PO SCH ×2 (09:22→20:44)
[2016-10-02] MEDS: ASPIRIN EC 81 MG TABLET PO SCH (09:23)
[2016-10-02] MEDS: predniSONE 10 MG TABLET PO SCH (09:23)
[2016-10-02] MEDS: MAGNESIUM CHLORIDE 64 MG TABLET PO SCH (09:23)
[2016-10-02] MEDS: LOSARTAN 25 MG TABLET PO SCH (09:23)
[2016-10-02] MEDS: METOPROLOL TARTRATE 50 MG TABLET PO SCH ×2 (09:23→17:25)
[2016-10-02] MEDS: FUROSEMIDE 40 MG TABLET PO SCH (09:23)
[2016-10-02] MEDS: LEVOTHYROXINE 50 MCG TABLET PO SCH (09:23)
[2016-10-02] MEDS: ENOXAPARIN 60 MG/0.6 ML SYRINGE SUBCUT SCH ×2 (10:59→20:46)
[2016-10-02] MEDS: ALPRAZolam 0.25 MG TABLET PO PRN (15:18)
[2016-10-02] MEDS: DILTIAZEM INJ 100 MG in SODIUM CHLORIDE 0.9% 100 ML IV SCH (17:21)
[2016-10-02] MEDS: DOXEPIN 25 MG CAPSULE PO SCH (20:44)
[2016-10-03] MEDS: guaiFENesin 200 MG/10 ML UDCUP PO PRN (04:10)
[2016-10-03] MEDS: MORPHINE 2 MG/1 ML SYRINGE IV PRN ×3 (04:10→20:09)
[2016-10-03] MEDS: ONDANSETRON 4 MG TABLET PO SCH ×4 (05:09→20:03)
[2016-10-03 05:43] LABS: Basophils % 0.9 % (0.0-0.8); Eosinophils % 0.4 % (0.00-10.9); Hematocrit 39.1 VOL% (35.7-47.0); Hemoglobin 12.8 GM/DL (12.0-16.0); Immature Granulocytes % 3.9 %; Immature Granulocytes Absolute 0.09 #; Lymphocytes % 41.9 % (21.3-54.2); Mean Corpuscular HGB Conc 32.7 GM/DL (32-36); Mean Corpuscular Hemoglobin 31 PG (27-34); Mean Corpuscular Volume 94.4 FL (87-102); Mean Platelet Volume 10.8 FL (9.6-12.0); Monocytes # 0.3 10*3/uL (0.11-0.8); Monocytes % 11.4 % (1.7-12.7); Neutrophils % 41.5 % (38.7-73.9); Platelet Count 235 T/CUMM (130-400); Red Blood Count 4.14 MC/CUMM (3.8-5.5); White Blood Count 2.3 T/CUMM (4-12)
[2016-10-03 06:29] LABS: Albumin 3.1 G/DL (3.4-5.0); Bilirubin,Total 0.7 MG/DL (0.2-1.0); Calcium 9.8 MG/DL (8.5-10.1); Potassium 3.4 MMOL/L (3.5-5.1); Total Protein 6.6 G/DL (6.4-8.3)
[2016-10-03 06:38] LABS: Hypochromasia 1+; Platelet Estimate Adequate
--- NOTE | 2016-10-03 07:42 | Oncology Progress Note ---
Oncology Subjective PN Interval history: obstructive pneumonia: Ms. Pearson remains hospitalized with small cell carcinoma the lung with progression of disease on 2 prior combinations of chemotherapy. She has received a third combination of chemotherapy using BCNU 100 mg and Cytoxan 1000 mg. She has been evaluated by radiation oncology as well. She has progression of her cancer in the right mainstem bronchus with a white out of her right lung due to atelectasis. I am rechecking a chest x-ray today. She has severe COPD complicating her lung cancer. Her hemoglobin is normal at 12.8. Her platelet count is normal at 235,000. Leukopenia: Her white cell count is down to 2300. She is supposed to be on granulocyte colony-stimulating factor. I am starting it today. Her absolute neutrophil count is 1000 and falling.She is afebrile in spite of being neutropenic. COPD: She is more dyspneic today. She is having more sputum production and coughing spasmodically. She may have a few more breath sounds in the right lung. However, the left lung is more congested with a more prolonged expiratory phase of respiration than yesterday. I hear rales as well as rhonchi. She has tachycardia but her heart rhythm is regular and the tachycardia is mild. She has no focal neurologic deficits and she is fully oriented and alert. She is extremely anxious. We have not started radiation therapy yet. That is pending. Exam - Constitutional Vitals: Period Temp Pulse Resp BP Sys/Carvajal Pulse Ox Last 24 Hr 96.5 F-98.2 F 55-89 16-22 129-154/73-94 92-97 Results - Labs CBC & BMP: 10/03/16 04:10 10/03/16 04:10 Specialty Discharge - Follow Up or Referrals
--- NOTE | 2016-10-03 07:52 | Pulmonology Progress Note ---
Pulmonary - PN: Subj Interval history: 10/01/2016 this 66-year-old black female has advanced small cell lung cancer. I saw her yesterday and discussed the case with Dr. Reddy. I dictated a note but it did not get placed in the chart. We discussed radiation and she is going to have it. This note is dictated 10/02/16. 10/03/2016 patient is not dyspneic at rest. Tolerating chemotherapy. Starting to cough up some phlegm. Chest x-ray has been ordered for today. Radiation oncology consult is still pending. Hopefully they can get started on radiation soon. Exam (Progress Note) - Constitutional Vitals: Period Temp Pulse Resp BP Sys/Carvajal Pulse Ox Last 24 Hr 96.5 F-98.2 F 55-89 16-22 129-154/73-94 92-97 Exam: Patient's alert oriented vital signs normal pulse is about 105 and regular. Pupils react to light. Throat is clear. Neck supple no bruits. Chest reveals decreased breath sounds on the right. Left lung is clear. Heart normal rate and rhythm no murmurs. Abdomen soft nontender no masses. Extremities no clubbing cyanosis or edema. Calves nontender. Little change from yesterday. Results - Labs CBC & BMP: 10/03/16 04:10 10/03/16 04:10 Lab Results: I have reviewed the past 24 hour labs Assessment and Plan (1) Obstruction right upper lobe Status: Acute Assessment and plan: Plan for bronchoscopy outpatient this morning. Please see dictation from that obstruction of right mainstem bronchus at this point. Consider radiation. External beem versus brachytherapy. 10/01/2016 right lung is obstructed. Needs radiation. Discussed case with Dr. Reddy. 10/02/2016 appears to have total right lung obstruction at present. To start radiation soon. Tumor is very friable and would be difficult to treat locally. 10/03/2016 has total obstruction of right lung. Follow-up x-ray pending. Hopefully can get started on radiation soon. The tumor extends up the right wall of the trachea about 5 cm. Current Visit: Yes (2) metastatic small cell lung cancer Status: Acute Assessment and plan: Has known small cell lung cancer right lung with widespread metastasis. 09/30/2016 patient getting third line chemotherapy at this point. 10/01/2016 patient getting chemotherapy 10/02/2016 continuing with chemotherapy. 10/03/2016 patient has been receiving chemotherapy. Current Visit: No (3) COPD (chronic obstructive pulmonary disease) Status: Chronic Assessment and plan: Chronic obstructive pulmonary disease treated with bronchodilators. She relates that one of the inhalers that we have prescribed she was not able to purchase. 09/30/2016 nasal oxygen and bronchodilators are helping. Oxygen saturation 96% on 2 L 10/01/2016 adequately oxygenated with current therapy. 10/02/2016 nasal oxygen and bronchodilators. 10/03/2016 no active bronchospasm Current Visit: No Specialty Discharge - Follow Up or Referrals
[2016-10-03] MEDS: FUROSEMIDE 40 MG TABLET PO SCH (08:18)
[2016-10-03] MEDS: ALBUTEROL 2.5 MG/3 ML NEB RESP TX PRN (08:24)
--- NOTE | 2016-10-03 08:39 | XRay Report ---
History: Lung cancer Date: 10/03/2016 Study: Chest x-ray AP portable Comparison exam: September 30, 2016 There is considerably improved aeration in the right mid to lower lung compared to the previous study. There is still some confluent infiltrate with or without underlying tumor in the right upper lung. There is no interval worsening. There is stable cardiomegaly. The mediastinal contour is unchanged. The pulmonary vasculature is not engorged. A left subclavian Mediport-type catheter is well-positioned. There is moderate thoracic spondylosis. Impression: Considerably improved aeration of the right mid to lower lung compared to the previous study. No adverse interval changes PROCEDURE INTERPRETED AT [facility] DEPARTMENT OF RADIOLOGY Final Report Signed by: Dr. Kia Albert
[2016-10-03] MEDS: LOSARTAN 25 MG TABLET PO SCH (09:17)
[2016-10-03] MEDS: MAGNESIUM CHLORIDE 64 MG TABLET PO SCH (09:17)
[2016-10-03] MEDS: LEVOTHYROXINE 50 MCG TABLET PO SCH (09:17)
[2016-10-03] MEDS: METOPROLOL TARTRATE 50 MG TABLET PO SCH ×2 (09:17→17:53)
[2016-10-03] MEDS: predniSONE 10 MG TABLET PO SCH (09:17)
[2016-10-03] MEDS: GRANISETRON 1 MG/1 ML VIAL IV SCH (09:18)
[2016-10-03] MEDS: HYDROcodone/CHLORPHENIRAMINE ER 5 ML UDCUP PO SCH ×2 (09:18→20:03)
[2016-10-03] MEDS: FILGRASTIM-SNDZ 300 MCG/0.5 ML SYRINGE SUBCUT SCH (09:18)
[2016-10-03] MEDS: ASPIRIN EC 81 MG TABLET PO SCH (09:18)
[2016-10-03] MEDS: ENOXAPARIN 60 MG/0.6 ML SYRINGE SUBCUT SCH ×2 (10:28→20:04)
[2016-10-03] MEDS: ALPRAZolam 0.25 MG TABLET PO PRN (12:56)
--- NOTE | 2016-10-03 13:23 | Physician Query Form ---
CLICK EDIT DOCUMENT TO SELECT QUERY ANSWER --> OK --> SIGN Lona Carlin RN Clinical Chorus Master W) [phone] (f) [phone] [email or web address] PROVIDERS: Make your selection(s) from the choices in EACH section by typing an "x" and enter comments in the comment section. Please use your independent medical judgment in providing your response. This request does not imply that any particular answer is desired or expected. CLINICAL INDICATORS: (Providers should not edit this section) Pt. admitted with UTI. Based on documentation of "Due to the presence of Chayito in the patient's urine, antifungal agents were also initiated. Urine cultures were noted to be positive for Klebsiella pneumoniae; antibiotic coverage continued". Based on the above, could you clarify the appropriate diagnosis, if significant , that supports the above abnormalities and additional evaluation, monitoring, and/or treatment rendered: ( ) UTI due to chayito ( ) UTI due to Klebsiella pneumoniae (x ) UTI due to chayito and Klebsiella pneumoniae ( ) Other, please specify: ( ) Clinically unable to determine COMMENTS: PLEASE ALSO DOCUMENT RESPONSE IN PROGRESS NOTES AND/OR DISCHARGE SUMMARY Use of terms such as suspected, likely, or probable (associated with a specific diagnosis that is being evaluated, monitored, or treated as if it exists) are acceptable and can be restated in the discharge summary if not ruled out. MTDD
[2016-10-03] MEDS: DOXEPIN 25 MG CAPSULE PO SCH (20:03)
[2016-10-04] MEDS: guaiFENesin 200 MG/10 ML UDCUP PO PRN ×2 (01:05→05:07)
[2016-10-04] MEDS: ONDANSETRON 4 MG TABLET PO SCH ×5 (04:19→20:07)
[2016-10-04] MEDS: ALBUTEROL 2.5 MG/3 ML NEB RESP TX PRN (05:32)
[2016-10-04 05:41] LABS: Basophils % 0.5 % (0.0-0.8); Eosinophils % 0.3 % (0.00-10.9); Immature Granulocytes % 0.9 %; Immature Granulocytes Absolute 0.05 #; Lymphocytes # 1.2 10*3/uL (1.4-4.0); Lymphocytes % 19.6 % (21.3-54.2); Mean Corpuscular HGB Conc 32.5 GM/DL (32-36); Mean Corpuscular Hemoglobin 31 PG (27-34); Mean Corpuscular Volume 96.2 FL (87-102); Mean Platelet Volume 10.4 FL (9.6-12.0); Monocytes # 0.8 10*3/uL (0.11-0.8); Monocytes % 13.8 % (1.7-12.7); Neutrophils # 3.8 10*3/uL (1.4-7.4); Neutrophils % 64.9 % (38.7-73.9); Platelet Count 244 T/CUMM (130-400); Red Blood Count 4.16 MC/CUMM (3.8-5.5); Red Cell Distribution Width 14.8 % (9.3-17.3); White Blood Count 5.9 T/CUMM (4-12)
[2016-10-04] MEDS: MORPHINE 2 MG/1 ML SYRINGE IV PRN ×3 (05:53→10:48)
[2016-10-04 06:04] LABS: Band Neutrophils 3 % (0-10); Eosinophils 2 % (0-10); Metamyelocytes 2 %; Total Cells Counted 100
[2016-10-04 06:05] LABS: Anisocytosis 2+; Hypochromasia 1+; Lymphocytes 18 % (20-55); Macrocytosis 1+; Microcytosis 1+; Platelet Estimate Normal; Segmented Neutrophils 64 % (50-85)
[2016-10-04 06:11] LABS: Albumin 3.2 G/DL (3.4-5.0); Bilirubin,Total 0.4 MG/DL (0.2-1.0); Calcium 9.5 MG/DL (8.5-10.1); Osmolality,Calculated 288.7 MOS/KG (273-304); Total Protein 6.6 G/DL (6.4-8.3)
--- NOTE | 2016-10-04 06:37 | Pulmonology Progress Note ---
Pulmonary - PN: Subj Interval history: 10/01/2016 this 66-year-old black female has advanced small cell lung cancer. I saw her yesterday and discussed the case with Dr. Reddy. I dictated a note but it did not get placed in the chart. We discussed radiation and she is going to have it. This note is dictated 10/02/16. 10/03/2016 patient is not dyspneic at rest. Tolerating chemotherapy. Starting to cough up some phlegm. Chest x-ray has been ordered for today. Radiation oncology consult is still pending. Hopefully they can get started on radiation soon. 10/04/2016 patient having episodes of dyspnea requiring extra oxygen at night. We need to proceed with radiation as soon as we can. She has obstruction of right main bronchus with small cell lung cancer. Exam (Progress Note) - Constitutional Vitals: Period Temp Pulse Resp BP Sys/Carvajal Pulse Ox Last 24 Hr 97.2 F-98.0 F 62-102 18-24 116-153/74-83 91-97 Exam: Patient's alert oriented vital signs normal pulse is about 105 and regular. Pupils react to light. Throat is clear. Neck supple no bruits. Chest reveals decreased breath sounds on the right. Left lung is clear. Heart normal rate and rhythm no murmurs. Abdomen soft nontender no masses. Extremities no clubbing cyanosis or edema. Calves nontender. Little change from yesterday. Results - Labs CBC & BMP: 10/04/16 05:06 10/04/16 05:06 Lab Results: I have reviewed the past 24 hour labs - Diagnostic Findings Procedure: Chest x-ray: image reviewed by me (Chest x-ray shows the right middle and lower lobe have opened up somewhat. Still has significant obstruction of those bronchi with total obstruction of the right upper lobe.) Assessment and Plan (1) Obstruction right upper lobe Status: Acute Assessment and plan: Plan for bronchoscopy outpatient this morning. Please see dictation from that obstruction of right mainstem bronchus at this point. Consider radiation. External beem versus brachytherapy. 10/01/2016 right lung is obstructed. Needs radiation. Discussed case with Dr. Reddy. 10/02/2016 appears to have total right lung obstruction at present. To start radiation soon. Tumor is very friable and would be difficult to treat locally. 10/03/2016 has total obstruction of right lung. Follow-up x-ray pending. Hopefully can get started on radiation soon. The tumor extends up the right wall of the trachea about 5 cm. 10/04/2016 yesterday's x-ray looks better she is aerating the right middle and lower lobes. She is coughed up some thick secretions from there. We need to proceed with radiation. She has compromised airway. Radiation needs to go from about 5 cm above the los to just distal to the division of right middle and lower lobes. Current Visit: Yes (2) metastatic small cell lung cancer Status: Acute Assessment and plan: Has known small cell lung cancer right lung with widespread metastasis. 09/30/2016 patient getting third line chemotherapy at this point. 10/01/2016 patient getting chemotherapy 10/02/2016 continuing with chemotherapy. 10/03/2016 patient has been receiving chemotherapy. Current Visit: No (3) COPD (chronic obstructive pulmonary disease) Status: Chronic Assessment and plan: Chronic obstructive pulmonary disease treated with bronchodilators. She relates that one of the inhalers that we have prescribed she was not able to purchase. 09/30/2016 nasal oxygen and bronchodilators are helping. Oxygen saturation 96% on 2 L 10/01/2016 adequately oxygenated with current therapy. 10/02/2016 nasal oxygen and bronchodilators. 10/03/2016 no active bronchospasm 10/04/2016 we will put on duo nebs 4 times a day plus as needed albuterol. Continuing oxygen. Current Visit: No Specialty Discharge - Follow Up or Referrals
[2016-10-04] MEDS: ALBUTEROL/IPRATROPIUM 3 ML NEB RESP TX SCH ×3 (07:16→19:37)
--- NOTE | 2016-10-04 08:21 | Oncology Progress Note ---
Oncology Subjective PN Interval history: obstructive pneumonia: Ms. Pearson remains hospitalized with small cell carcinoma the lung with progression of disease on 2 prior combinations of chemotherapy. She has received a third combination of chemotherapy using BCNU 100 mg and Cytoxan 1000 mg. She has been evaluated by radiation oncology as well. She has progression of her cancer in the right mainstem bronchus with a white out of her right lung due to atelectasis. I am rechecking a chest x-ray tomorrow. She has severe COPD complicating her lung cancer. Her hemoglobin is 13.0 and her platelet count is 244,000. In addition, the right lung has opened back up and there is significantly less atelectasis and opacification on the film done yesterday compared to previous chest x-rays. Leukopenia: Lab work today includes a white cell count of 5900 with an absolute neutrophil count of 3800 but the patient on granulocyte colony-stimulating factor. COPD: She is more dyspneic today. She is having more sputum production and coughing spasmodically. She may have a few more breath sounds in the right lung. However, the left lung is more congested with a more prolonged expiratory phase of respiration than yesterday. I hear rales as well as rhonchi. She has tachycardia but her heart rhythm is regular and the tachycardia is mild. She has no focal neurologic deficits and she is fully oriented and alert. She is extremely anxious. We have not started radiation therapy yet. That is pending. Exam - Constitutional Vitals: Period Temp Pulse Resp BP Sys/Carvajal Pulse Ox Last 24 Hr 97.2 F-98.0 F 62-102 16-24 116-153/74-81 91-97 Results - Labs CBC & BMP: 10/04/16 05:06 10/04/16 05:06 Specialty Discharge - Follow Up or Referrals
[2016-10-04] MEDS: FUROSEMIDE 40 MG TABLET PO SCH (09:21)
[2016-10-04] MEDS: ASPIRIN EC 81 MG TABLET PO SCH (09:21)
[2016-10-04] MEDS: LEVOTHYROXINE 50 MCG TABLET PO SCH (09:21)
[2016-10-04] MEDS: MAGNESIUM CHLORIDE 64 MG TABLET PO SCH (09:21)
[2016-10-04] MEDS: METOPROLOL TARTRATE 50 MG TABLET PO SCH ×2 (09:21→16:40)
[2016-10-04] MEDS: predniSONE 10 MG TABLET PO SCH (09:21)
[2016-10-04] MEDS: LOSARTAN 25 MG TABLET PO SCH (09:21)
[2016-10-04] MEDS: FILGRASTIM-SNDZ 300 MCG/0.5 ML SYRINGE SUBCUT SCH (09:24)
[2016-10-04] MEDS: HYDROcodone/CHLORPHENIRAMINE ER 5 ML UDCUP PO SCH ×2 (09:24→20:08)
[2016-10-04] MEDS: GRANISETRON 1 MG/1 ML VIAL IV SCH (09:24)
[2016-10-04] MEDS: ENOXAPARIN 60 MG/0.6 ML SYRINGE SUBCUT SCH (11:10)
[2016-10-04] MEDS: MAGNESIUM HYDROXIDE SUSP 30 ML UDCUP PO PRN (16:40)
[2016-10-04] MEDS: DOXEPIN 25 MG CAPSULE PO SCH (20:07)
[2016-10-05] MEDS: ALBUTEROL/IPRATROPIUM 3 ML NEB RESP TX SCH ×4 (00:23→19:04)
[2016-10-05] MEDS: ONDANSETRON 4 MG TABLET PO SCH ×4 (04:25→20:50)
[2016-10-05] MEDS: guaiFENesin 200 MG/10 ML UDCUP PO PRN (04:27)
[2016-10-05 04:51] LABS: Basophils % 0.5 % (0.0-0.8); Hematocrit 36.5 VOL% (35.7-47.0); Immature Granulocytes % 9.3 %; Immature Granulocytes Absolute 0.71 #; Lymphocytes # 0.9 10*3/uL (1.4-4.0); Lymphocytes % 12.2 % (21.3-54.2); Mean Corpuscular HGB Conc 32.9 GM/DL (32-36); Mean Corpuscular Hemoglobin 32 PG (27-34); Mean Corpuscular Volume 95.8 FL (87-102); Mean Platelet Volume 10.4 FL (9.6-12.0); Monocytes # 1.3 10*3/uL (0.11-0.8); Monocytes % 17.6 % (1.7-12.7); Neutrophils # 4.6 10*3/uL (1.4-7.4); Neutrophils % 60.4 % (38.7-73.9); Platelet Count 254 T/CUMM (130-400); Red Blood Count 3.81 MC/CUMM (3.8-5.5); Red Cell Distribution Width 14.7 % (9.3-17.3); White Blood Count 7.6 T/CUMM (4-12)
[2016-10-05 05:12] LABS: Albumin 3.6 G/DL (3.4-5.0); Bilirubin,Total 0.4 MG/DL (0.2-1.0); Calcium 10.1 MG/DL (8.5-10.1); Osmolality,Calculated 290.1 MOS/KG (273-304); Potassium 3.8 MMOL/L (3.5-5.1)
[2016-10-05 06:24] LABS: Band Neutrophils 5 % (0-10); Hypochromasia 1+; Lymphocytes 11 % (20-55); Platelet Estimate Adequate; Segmented Neutrophils 64 % (50-85); Total Cells Counted 100
[2016-10-05 06:25] LABS: Microcytosis 1+
[2016-10-05] MEDS ORDERED: HEPARIN LOCK FLUSH 500 UNIT/5 ML SYRINGE IV ONE (08:41)
--- NOTE | 2016-10-05 08:57 | Oncology Progress Note ---
Oncology Subjective PN Interval history: Small cell lung cancer with obstructive pneumonia: Ms. Pearson remains hospitalized with small cell carcinoma the lung with progression of disease on 2 prior combinations of chemotherapy. She has received a third combination of chemotherapy using BCNU 100 mg and Cytoxan 1000 mg. She has been evaluated by radiation oncology as well. She has progression of her cancer in the right mainstem bronchus with a white out of her right lung due to atelectasis. I am rechecking a chest x-ray tomorrow. She has severe COPD complicating her lung cancer that has produced obstructive pneumonia. Her hemoglobin is 12.0 and her platelet count is 254,000. In addition, the right lung has opened back up and there is significantly less atelectasis and opacification on the film done today compared to previous chest x-rays. Leukopenia: Lab work today includes a white cell count 7600 with an absolute neutrophil count of 4600 but the patient on granulocyte colony-stimulating factor. COPD: She is less dyspneic today. She is having more sputum production and coughing spasmodically. She has been having a small amount of hemoptysis but it is decreasing. She may have a few more breath sounds in the right lung. However, the left lung is more congested with a more prolonged expiratory phase of respiration than yesterday. I hear rales as well as rhonchi. She has tachycardia but her heart rhythm is regular and the tachycardia is mild. She has no focal neurologic deficits and she is fully oriented and alert. She is extremely anxious. She remains weak and anxious and shows no indication of being ready to go home. She has still not been started on radiation therapy. Exam - Constitutional Vitals: Period Temp Pulse Resp BP Sys/Carvajal Pulse Ox Last 24 Hr 97.0 F-98.6 F 67-101 16-23 111-130/62-74 89-100 Results - Labs CBC & BMP: 10/05/16 03:30 10/05/16 03:30 Specialty Discharge - Follow Up or Referrals
--- NOTE | 2016-10-05 09:05 | XRay Report ---
XR chest 2V Indication: Lung cancer with possible atelectasis. Comparison: Chest x-ray 10/03/2016. Technique: PA and lateral chest x-ray was performed. Findings: Elevation of the right hemidiaphragm remains present however there has been improvement in aeration right upper lung. Pleural thickening is suggested along the right lung apex superiorly and laterally. Scattered airspace opacities additionally present within the right upper lung that could reflect residual atelectasis or infection. Within the left lung base, has been interval increase in reticular interstitial opacity and scattered airspace disease. Chest is otherwise unchanged and appears stable. Impression: 1. Improvement in aeration of the right upper lobe is demonstrated. Pleural thickening and/or residual atelectasis or infection could be considered. 2. Worsening parenchymal opacities in the left lung base may reflect developing infection or atypical pulmonary edema. 10/05/2016 9:02 AM PROCEDURE INTERPRETED AT [facility] DEPARTMENT OF RADIOLOGY Final Report Signed by: Dr. Berry Horner
[2016-10-05] MEDS: MAGNESIUM CHLORIDE 64 MG TABLET PO SCH (09:08)
[2016-10-05] MEDS: FUROSEMIDE 40 MG TABLET PO SCH (09:08)
[2016-10-05] MEDS: DOCUSATE SODIUM 100 MG CAPSULE PO PRN (09:08)
[2016-10-05] MEDS: ASPIRIN EC 81 MG TABLET PO SCH (09:08)
[2016-10-05] MEDS: LEVOTHYROXINE 50 MCG TABLET PO SCH (09:09)
[2016-10-05] MEDS: METOPROLOL TARTRATE 50 MG TABLET PO SCH ×2 (09:09→19:02)
[2016-10-05] MEDS: LOSARTAN 25 MG TABLET PO SCH (09:09)
[2016-10-05] MEDS: predniSONE 10 MG TABLET PO SCH (09:09)
[2016-10-05] MEDS: HYDROcodone/CHLORPHENIRAMINE ER 5 ML UDCUP PO SCH ×2 (09:12→20:50)
[2016-10-05] MEDS: GRANISETRON 1 MG/1 ML VIAL IV SCH (09:13)
[2016-10-05] MEDS: FILGRASTIM-SNDZ 300 MCG/0.5 ML SYRINGE SUBCUT SCH (09:13)
--- NOTE | 2016-10-05 11:03 | Pulmonology Progress Note ---
Pulmonary - PN: Subj Interval history: This is a 66-year-old female. This patient has advanced stage small cell lung cancer. She is on her third round of chemotherapy. She has had obstruction of the right lung and admission. This is improved with chemotherapy. She is going to start radiation therapy soon. Patient has underlying COPD. Today's x-ray shows a normal size heart. Patient has good variation of her right lower lung. There is an area of atelectasis that separates the right upper and right lower lung. There is some variation in the right upper lung but there is still an area of dense consolidation with air bronchograms in the medial right upper lung. There are faint increased interstitial markings in the left perihilar area Microbiology. No positive cultures Lab. CBC Kati profile are stable. Labs been reviewed. Physical exam. Vital signs. See below General. Slightly short of breath. Tires easily with minimal exertion Psychiatric oriented 3 Face. Symmetrical. No edema of the lips or tongue Neck. Symmetrical. No meningismus. Chest. Prolonged expiration. Slightly decreased breath sounds over the right upper lung. Heart no gallop Abdomen. Nontender positive bowel sounds Lower extremities. Nothing to suggest deep venous thrombophlebitis Neurologic. Cranial nerves appear to be intact. Patient moves all 4 extremities. The remainder the physical exam is negative Plan. 1. Continue present regimen 2. No changes were made Exam (Progress Note) - Constitutional Vitals: Period Temp Pulse Resp BP Sys/Carvajal Pulse Ox Last 24 Hr 97.0 F-98.6 F 67-101 16-23 111-130/62-74 89-100 Results - Labs CBC & BMP: 10/05/16 03:30 10/05/16 03:30 Specialty Discharge - Follow Up or Referrals
[2016-10-05] MEDS: MORPHINE 2 MG/1 ML SYRINGE IV PRN ×2 (14:29→20:49)
[2016-10-05] MEDS: DOXEPIN 25 MG CAPSULE PO SCH (20:50)
[2016-10-06] MEDS: ALBUTEROL/IPRATROPIUM 3 ML NEB RESP TX SCH ×4 (00:44→19:50)
[2016-10-06] MEDS: ONDANSETRON 4 MG TABLET PO SCH ×4 (02:43→20:56)
[2016-10-06] MEDS: guaiFENesin 200 MG/10 ML UDCUP PO PRN (02:43)
[2016-10-06 05:20] LABS: Basophils # 0.1 10*3/uL (0.0-0.2); Basophils % 0.8 % (0.0-0.8); Hematocrit 34.7 VOL% (35.7-47.0); Hemoglobin 11.4 GM/DL (12.0-16.0); Immature Granulocytes Absolute 0.94 #; Lymphocytes # 1.4 10*3/uL (1.4-4.0); Lymphocytes % 17.5 % (21.3-54.2); Mean Corpuscular HGB Conc 32.9 GM/DL (32-36); Mean Corpuscular Hemoglobin 32 PG (27-34); Mean Corpuscular Volume 96.7 FL (87-102); Mean Platelet Volume 11.6 FL (9.6-12.0); Monocytes # 1.4 10*3/uL (0.11-0.8); Monocytes % 18.1 % (1.7-12.7); NRBC # 0.04 10*3/uL; Neutrophils # 4.1 10*3/uL (1.4-7.4); Neutrophils % 51.6 % (38.7-73.9); Platelet Count 235 T/CUMM (130-400); Red Blood Count 3.59 MC/CUMM (3.8-5.5); Red Cell Distribution Width 14.5 % (9.3-17.3); White Blood Count 7.9 T/CUMM (4-12)
[2016-10-06 05:49] LABS: Band Neutrophils 9 % (0-10); Lymphocytes 26 % (20-55); Metamyelocytes 1 %; Nucleated Red Blood Cells 1 (0-5); Platelet Estimate Normal; Segmented Neutrophils 50 % (50-85); Total Cells Counted 100
[2016-10-06 05:59] LABS: Albumin 3.5 G/DL (3.4-5.0); Bilirubin,Total 0.6 MG/DL (0.2-1.0); Calcium 9.6 MG/DL (8.5-10.1); Osmolality,Calculated 284.3 MOS/KG (273-304); Potassium 4.2 MMOL/L (3.5-5.1); Total Protein 6.8 G/DL (6.4-8.3)
[2016-10-06] MEDS: ALPRAZolam 0.25 MG TABLET PO PRN ×3 (06:05→20:57)
--- NOTE | 2016-10-06 09:05 | XRay Report ---
XR chest 1V portable Indication: Lung cancer with atelectasis. Comparison: Chest x-ray 10/05/2016. Technique: Portable AP chest was performed. Findings: The appearance of the right lung demonstrates little change compared to previous study. Airspace opacities superimposed on reticular interstitial markings in the left lung base remain present suggesting infectious process. Overall appearance of the chest suggests little change. Impression: 1. Infectious process left lung base could be considered. Atelectasis and/or scarring of the right upper lung is stable. Little overall change in the chest is suggested. 10/06/2016 8:36 AM PROCEDURE INTERPRETED AT [facility] DEPARTMENT OF RADIOLOGY Final Report Signed by: Dr. Berry Horner
--- NOTE | 2016-10-06 09:50 | Pulmonology Progress Note ---
Pulmonary - PN: Subj Interval history: This is a 66-year-old female. This patient has advanced stage small cell lung cancer. She is on her third round of chemotherapy. She has had obstruction of the right lung and admission. This is improved with chemotherapy. She is going to start radiation therapy soon. Patient has underlying COPD. Today's x-ray shows a normal size heart. Patient has good variation of her right lower lung. There is an area of atelectasis that separates the right upper and right lower lung. There is some variation in the right upper lung but there is still an area of dense consolidation with air bronchograms in the medial right upper lung. There are faint increased interstitial markings in the left perihilar area Microbiology. No positive cultures Lab. CBC Kati profile are stable. Labs been reviewed. 10/06/2016. Chest x-ray shows slight increased markings at the left base. There is old scarring at the right apex. There is loculated fluid in the minor fissure. CBC is stable. Electrolytes are normal. Creatinine is 0.9 with a BUN of 27. There is a mild elevation of transaminases. Alkaline [place] and total bilirubin are normal. Total protein and albumin are normal. Patient is stable today. She has been able to eat some of her breakfast. She has no new request and there are no new complaints. Physical exam. Vital signs. See below General. Slightly short of breath. Tires easily with minimal exertion Psychiatric oriented 3 Face. Symmetrical. No edema of the lips or tongue Neck. Symmetrical. No meningismus. Chest. Prolonged expiration. Slightly decreased breath sounds over the right upper lung. Heart no gallop Abdomen. Nontender positive bowel sounds Lower extremities. Nothing to suggest deep venous thrombophlebitis Neurologic. Cranial nerves appear to be intact. Patient moves all 4 extremities. The remainder the physical exam is negative Plan. 10/05/2016 1. Continue present regimen 2. No changes were made 10/06/2016. 1. See today's note above. 2. No changes were made. Exam (Progress Note) - Constitutional Vitals: Period Temp Pulse Resp BP Sys/Carvajal Pulse Ox Last 24 Hr 97.5 F-98.1 F 65-99 17-24 96-132/56-80 81-95 Results - Labs CBC & BMP: 10/06/16 04:00 10/06/16 03:10 Specialty Discharge - Follow Up or Referrals
[2016-10-06] MEDS: METOPROLOL TARTRATE 50 MG TABLET PO SCH ×2 (09:52→16:11)
[2016-10-06] MEDS: MAGNESIUM CHLORIDE 64 MG TABLET PO SCH (09:52)
[2016-10-06] MEDS: predniSONE 10 MG TABLET PO SCH (09:52)
[2016-10-06] MEDS: FUROSEMIDE 40 MG TABLET PO SCH (09:52)
[2016-10-06] MEDS: HYDROcodone/CHLORPHENIRAMINE ER 5 ML UDCUP PO SCH ×2 (09:52→20:56)
[2016-10-06] MEDS: LEVOTHYROXINE 50 MCG TABLET PO SCH (09:52)
[2016-10-06] MEDS: LOSARTAN 25 MG TABLET PO SCH (09:52)
[2016-10-06] MEDS: FILGRASTIM-SNDZ 300 MCG/0.5 ML SYRINGE SUBCUT SCH (09:53)
[2016-10-06] MEDS: GRANISETRON 1 MG/1 ML VIAL IV SCH (09:53)
[2016-10-06] MEDS: ASPIRIN EC 81 MG TABLET PO SCH (09:53)
--- NOTE | 2016-10-06 10:58 | Oncology Progress Note ---
Oncology Subjective PN Interval history: Small cell lung cancer with obstructive pneumonia: Ms. Pearson remains hospitalized with small cell carcinoma the lung with progression of disease on 2 prior combinations of chemotherapy. She has received a third combination of chemotherapy using BCNU 100 mg and Cytoxan 1000 mg. She has been evaluated by radiation oncology as well. She has progression of her cancer in the right mainstem bronchus with a white out of her right lung due to atelectasis. I am rechecking a chest x-ray tomorrow. She has severe COPD complicating her lung cancer that has produced obstructive pneumonia. Comprehensive metabolic profile is relatively satisfactory. In addition, the right lung has opened back up partially and there is significantly less atelectasis and opacification on the film done today compared to previous chest x-rays. However I still find decreased breath sounds throughout the right lung and it is not moving as much as the left. Leukopenia: Lab work today includes a White cell count 7900 with ANC of 4100. Her hemoglobin is 11.4 and her platelet count is 235,000. COPD: She is less dyspneic today. She is having more sputum production and coughing spasmodically. She has been having a small amount of hemoptysis but it is decreasing. She may have a few more breath sounds in the right lung. However, the left lung is more congested with a more prolonged expiratory phase of respiration than yesterday. She has expiratory wheezing with a prolonged expiratory phase of respiration and I hear rales as well as rhonchi. She has tachycardia but her heart rhythm is regular and the tachycardia is mild. She has no focal neurologic deficits and she is fully oriented and alert. She is extremely anxious. She remains weak and anxious and shows no indication of being ready to go home. She has still not been started on radiation therapy. Exam - Constitutional Vitals: Period Temp Pulse Resp BP Sys/Carvajal Pulse Ox Last 24 Hr 97.5 F-98.1 F 65-99 17-24 96-132/56-80 81-95 Results - Labs CBC & BMP: 10/06/16 04:00 10/06/16 03:10 Specialty Discharge - Follow Up or Referrals
[2016-10-06] MEDS: MORPHINE 2 MG/1 ML SYRINGE IV PRN (16:11)
[2016-10-06] MEDS: DOXEPIN 25 MG CAPSULE PO SCH (20:56)
[2016-10-07] MEDS: ALBUTEROL/IPRATROPIUM 3 ML NEB RESP TX SCH ×4 (00:13→19:21)
[2016-10-07] MEDS: ONDANSETRON 4 MG TABLET PO SCH ×4 (02:28→21:09)
[2016-10-07] MEDS: guaiFENesin 200 MG/10 ML UDCUP PO PRN (02:28)
[2016-10-07] MEDS: ALBUTEROL 2.5 MG/3 ML NEB RESP TX PRN (05:25)
[2016-10-07 06:10] LABS: Basophils % 0.1 % (0.0-0.8); Eosinophils # 1.7 10*3/uL (0.0-0.87); Eosinophils % 12.9 % (0.00-10.9); Hematocrit 33.8 VOL% (35.7-47.0); Hemoglobin 10.9 GM/DL (12.0-16.0); Immature Granulocytes % 2.6 %; Immature Granulocytes Absolute 0.34 #; Lymphocytes # 1.7 10*3/uL (1.4-4.0); Lymphocytes % 12.9 % (21.3-54.2); Mean Corpuscular HGB Conc 32.2 GM/DL (32-36); Mean Corpuscular Hemoglobin 31 PG (27-34); Mean Corpuscular Volume 97.4 FL (87-102); Mean Platelet Volume 11.7 FL (9.6-12.0); Monocytes # 2.1 10*3/uL (0.11-0.8); Monocytes % 15.7 % (1.7-12.7); NRBC # 0.17 10*3/uL; Neutrophils # 7.4 10*3/uL (1.4-7.4); Neutrophils % 55.8 % (38.7-73.9); Platelet Count 222 T/CUMM (130-400); Red Blood Count 3.47 MC/CUMM (3.8-5.5); Red Cell Distribution Width 14.7 % (9.3-17.3); White Blood Count 13.3 T/CUMM (4-12)
--- NOTE | 2016-10-07 06:47 | Oncology Progress Note ---
Oncology Subjective PN Interval history: Small cell lung cancer with obstructive pneumonia: Ms. Pearson remains hospitalized with small cell carcinoma the lung with progression of disease on 2 prior combinations of chemotherapy. She has received a third combination of chemotherapy using BCNU 100 mg and Cytoxan 1000 mg given September 25, 2016. She has been evaluated by radiation oncology as well. She has progression of her cancer in the right mainstem bronchus with a white out of her right lung due to atelectasis. I am rechecking a chest x-ray tomorrow. She has severe COPD complicating her lung cancer that has produced obstructive pneumonia. Her chest x-ray this morning demonstrates worsening atelectasis of the right lung. Leukopenia: Lab work today includes a white cell count of 13,300. G-CSF was stopped yesterday. The hemoglobin is 10.9 and the platelet count is 222,000. Her comprehensive metabolic profile was ordered but I do not see the results yet. COPD: She has severe COPD that would have precluded surgery even if she were a candidate, which she was not. Her varying atelectasis is affecting her dyspnea. Her dyspnea is aggravated by the fact that she becomes extremely anxious. She is very hesitant to consider discharge. She has still not been started on radiation therapy. Exam - Constitutional Vitals: Period Temp Pulse Resp BP Sys/Carvajal Pulse Ox Last 24 Hr 97.0 F-98.1 F 53-99 16-24 110-132/58-80 71-100 Results - Labs CBC & BMP: 10/07/16 05:40 10/07/16 05:40 Specialty Discharge - Follow Up or Referrals
[2016-10-07 06:55] LABS: Albumin 3.3 G/DL (3.4-5.0); Bilirubin,Total 0.7 MG/DL (0.2-1.0); Calcium 9.7 MG/DL (8.5-10.1); Osmolality,Calculated 284.1 MOS/KG (273-304); Potassium 3.6 MMOL/L (3.5-5.1); Total Protein 6.3 G/DL (6.4-8.3)
[2016-10-07 07:27] LABS: Band Neutrophils 42 % (0-10); Hypochromasia 1+; Lymphocytes 7 % (20-55); Metamyelocytes 2 %; Myelocytes 4 %; Nucleated Red Blood Cells 2 (0-5); Platelet Estimate Adequate; Segmented Neutrophils 38 % (50-85); Target Cells Slight; Total Cells Counted 100; Toxic Granulation 2+
--- NOTE | 2016-10-07 07:54 | XRay Report ---
XR chest 1V portable Indication: Follow-up of atelectasis from lung cancer Comparison: Chest x-ray dated October 06, 2016 Technique: Single frontal view of the chest. Findings: Port catheter appears grossly unchanged. Continued volume loss within the right lung. Increased atelectasis/consolidation within the right midlung and right lung apex. Continued atelectasis/consolidation within the left lung base. Visualized osseous and surrounding soft tissue structures appear grossly unchanged. IMPRESSION: As above. PROCEDURE INTERPRETED AT [facility] DEPARTMENT OF RADIOLOGY Final Report Signed by: Dr Abdirashid Gamez
[2016-10-07] MEDS: GRANISETRON 1 MG/1 ML VIAL IV SCH (08:41)
[2016-10-07] MEDS: LEVOTHYROXINE 50 MCG TABLET PO SCH (08:42)
[2016-10-07] MEDS: MAGNESIUM CHLORIDE 64 MG TABLET PO SCH (08:42)
[2016-10-07] MEDS: HYDROcodone/CHLORPHENIRAMINE ER 5 ML UDCUP PO SCH ×2 (08:42→21:09)
[2016-10-07] MEDS: FUROSEMIDE 40 MG TABLET PO SCH (08:42)
[2016-10-07] MEDS: LOSARTAN 25 MG TABLET PO SCH (08:42)
[2016-10-07] MEDS: METOPROLOL TARTRATE 50 MG TABLET PO SCH ×2 (08:42→16:26)
[2016-10-07] MEDS: ASPIRIN EC 81 MG TABLET PO SCH (08:43)
[2016-10-07] MEDS: predniSONE 10 MG TABLET PO SCH (08:43)
[2016-10-07] MEDS: FILGRASTIM-SNDZ 300 MCG/0.5 ML SYRINGE SUBCUT SCH (08:43)
[2016-10-07] MEDS: ALPRAZolam 0.25 MG TABLET PO PRN ×2 (08:43→21:08)
[2016-10-07] MEDS: MAGNESIUM HYDROXIDE SUSP 30 ML UDCUP PO PRN (08:49)
--- NOTE | 2016-10-07 09:19 | Pulmonology Progress Note ---
Pulmonary - PN: Subj Interval history: 10/01/2016 this 66-year-old black female has advanced small cell lung cancer. I saw her yesterday and discussed the case with Dr. Reddy. I dictated a note but it did not get placed in the chart. We discussed radiation and she is going to have it. This note is dictated 10/02/16. 10/03/2016 patient is not dyspneic at rest. Tolerating chemotherapy. Starting to cough up some phlegm. Chest x-ray has been ordered for today. Radiation oncology consult is still pending. Hopefully they can get started on radiation soon. 10/04/2016 patient having episodes of dyspnea requiring extra oxygen at night. We need to proceed with radiation as soon as we can. She has obstruction of right main bronchus with small cell lung cancer. 10/07/2016 patient has done well the last round of chemotherapy. We are still awaiting word from radiation oncology. She needs to start as soon as possible in my opinion. Exam (Progress Note) - Constitutional Vitals: Period Temp Pulse Resp BP Sys/Carvajal Pulse Ox Last 24 Hr 97.0 F-98.2 F 53-96 16- 105-124/58-75 71-100 Exam: Patient's alert oriented vital signs normal pulse is about 105 and regular. Pupils react to light. Throat is clear. Neck supple no bruits. Chest reveals decreased breath sounds on the right. Left lung is clear. Heart normal rate and rhythm no murmurs. Abdomen soft nontender no masses. Extremities no clubbing cyanosis or edema. Calves nontender. Results - Labs CBC & BMP: 10/07/16 05:40 10/07/16 05:40 Lab Results: I have reviewed the past 24 hour labs - Diagnostic Findings Procedure: Chest x-ray: image reviewed by me (Right lung fairly well aerated. Right upper lobe still totally collapsed. Patchy infiltrate in the right midlung. Left lung is clear.) Assessment and Plan (1) Obstruction right upper lobe Status: Acute Assessment and plan: Plan for bronchoscopy outpatient this morning. Please see dictation from that obstruction of right mainstem bronchus at this point. Consider radiation. External beem versus brachytherapy. 10/01/2016 right lung is obstructed. Needs radiation. Discussed case with Dr. Reddy. 10/02/2016 appears to have total right lung obstruction at present. To start radiation soon. Tumor is very friable and would be difficult to treat locally. 10/03/2016 has total obstruction of right lung. Follow-up x-ray pending. Hopefully can get started on radiation soon. The tumor extends up the right wall of the trachea about 5 cm. 10/04/2016 yesterday's x-ray looks better she is aerating the right middle and lower lobes. She is coughed up some thick secretions from there. We need to proceed with radiation. She has compromised airway. Radiation needs to go from about 5 cm above the los to just distal to the division of right middle and lower lobes. 10/07/2016 this is from progressive small cell lung cancer. The tumor was extremely friable. She could have hemorrhage anytime. She could have further obstruction anytime. We need to proceed with radiation. Current Visit: Yes (2) metastatic small cell lung cancer Status: Acute Assessment and plan: Has known small cell lung cancer right lung with widespread metastasis. 09/30/2016 patient getting third line chemotherapy at this point. 10/01/2016 patient getting chemotherapy 10/02/2016 continuing with chemotherapy. 10/03/2016 patient has been receiving chemotherapy. 10/07/2016 has tolerated her last chemotherapy Current Visit: No (3) COPD (chronic obstructive pulmonary disease) Status: Chronic Assessment and plan: Chronic obstructive pulmonary disease treated with bronchodilators. She relates that one of the inhalers that we have prescribed she was not able to purchase. 09/30/2016 nasal oxygen and bronchodilators are helping. Oxygen saturation 96% on 2 L 10/01/2016 adequately oxygenated with current therapy. 10/02/2016 nasal oxygen and bronchodilators. 10/03/2016 no active bronchospasm 10/04/2016 we will put on duo nebs 4 times a day plus as needed albuterol. Continuing oxygen. 10/07/2016 continuing bronchodilators and oxygen. Current Visit: No Specialty Discharge - Follow Up or Referrals
[2016-10-07] MEDS: MORPHINE 2 MG/1 ML SYRINGE IV PRN (16:22)
[2016-10-07] MEDS: DOXEPIN 25 MG CAPSULE PO SCH (21:08)
[2016-10-08] MEDS: ALBUTEROL/IPRATROPIUM 3 ML NEB RESP TX SCH ×4 (00:22→19:57)
[2016-10-08] MEDS: ONDANSETRON 4 MG TABLET PO SCH ×4 (03:30→20:32)
[2016-10-08] MEDS: MORPHINE 2 MG/1 ML SYRINGE IV PRN ×3 (04:19→18:49)
[2016-10-08] MEDS: ALPRAZolam 0.25 MG TABLET PO PRN ×3 (04:19→20:32)
[2016-10-08 05:08] LABS: Basophils % 0.1 % (0.0-0.8); Hemoglobin 9.5 GM/DL (12.0-16.0); Immature Granulocytes % 6.5 %; Immature Granulocytes Absolute 1.52 #; Lymphocytes # 1.5 10*3/uL (1.4-4.0); Lymphocytes % 6.4 % (21.3-54.2); Mean Corpuscular HGB Conc 31.7 GM/DL (32-36); Mean Corpuscular Hemoglobin 31 PG (27-34); Mean Platelet Volume 11.4 FL (9.6-12.0); Monocytes # 2.8 10*3/uL (0.11-0.8); Monocytes % 11.9 % (1.7-12.7); NRBC # 0.27 10*3/uL; Neutrophils # 17.7 10*3/uL (1.4-7.4); Neutrophils % 75.1 % (38.7-73.9); Platelet Count 209 T/CUMM (130-400); Red Blood Count 3.03 MC/CUMM (3.8-5.5); Red Cell Distribution Width 14.7 % (9.3-17.3); White Blood Count 23.5 T/CUMM (4-12)
[2016-10-08 05:24] LABS: Albumin 2.7 G/DL (3.4-5.0); Bilirubin,Total 0.5 MG/DL (0.2-1.0); Osmolality,Calculated 291.4 MOS/KG (273-304)
[2016-10-08 06:17] LABS: Band Neutrophils 63 % (0-10); Lymphocytes 6 % (20-55); Myelocytes 8 %; Nucleated Red Blood Cells 2 (0-5); Segmented Neutrophils 18 % (50-85); Total Cells Counted 100
[2016-10-08 06:18] LABS: Hypochromasia 2+; Macrocytosis 1+; Platelet Estimate Adequate; Target Cells Slight
--- NOTE | 2016-10-08 06:42 | Oncology Progress Note ---
Oncology Subjective PN Interval history: Small cell lung cancer with obstructive pneumonia: Ms. Pearson remains hospitalized with small cell carcinoma the lung with progression of disease on 2 prior combinations of chemotherapy. She has received a third combination of chemotherapy using BCNU 100 mg and Cytoxan 1000 mg given September 25, 2016. She has been evaluated by radiation oncology as well. She has progression of her cancer in the right mainstem bronchus with a white out of her right lung due to atelectasis. I am rechecking a chest x-ray tomorrow. She has severe COPD complicating her lung cancer that has produced obstructive pneumonia. Her chest x-ray done yesterday demonstrated worsening atelectasis of the right lung. Leukopenia: Lab work today includes a white cell count of 23,500. G-CSF was not stopped yesterday, although I ordered it stopped. I am ordering it to be stopped again today. The hemoglobin is 19.5 and the platelet count is 209,000. Her comprehensive metabolic profile was ordered but I do not see the results yet. COPD: She has severe COPD that would have precluded surgery even if she were a candidate, which she was not. Her varying atelectasis is affecting her dyspnea. Her dyspnea is aggravated by the fact that she becomes extremely anxious. She is very hesitant to consider discharge. Hypokalemia: Lab work today includes a low serum potassium of 3.0 with rest of the comprehensive metabolic profile being relatively normal. I am ordering supplemental potassium and restarting her IV fluids temporarily. These will include potassium as an additive. We are still waiting to begin radiation therapy. The chemotherapy that she received is repeated every 4 weeks. Exam - Constitutional Vitals: Period Temp Pulse Resp BP Sys/Carvajal Pulse Ox Last 24 Hr 97.2 F-98.6 F 77-102 16-26 105-121/62-75 75-97 Results - Labs CBC & BMP: 10/08/16 04:00 10/08/16 04:00 Specialty Discharge - Follow Up or Referrals
--- NOTE | 2016-10-08 08:16 | Pulmonology Progress Note ---
Pulmonary - PN: Subj Interval history: 10/01/2016 this 66-year-old black female has advanced small cell lung cancer. I saw her yesterday and discussed the case with Dr. Reddy. I dictated a note but it did not get placed in the chart. We discussed radiation and she is going to have it. This note is dictated 10/02/16. 10/03/2016 patient is not dyspneic at rest. Tolerating chemotherapy. Starting to cough up some phlegm. Chest x-ray has been ordered for today. Radiation oncology consult is still pending. Hopefully they can get started on radiation soon. 10/04/2016 patient having episodes of dyspnea requiring extra oxygen at night. We need to proceed with radiation as soon as we can. She has obstruction of right main bronchus with small cell lung cancer. 10/07/2016 patient has done well the last round of chemotherapy. We are still awaiting word from radiation oncology. She needs to start as soon as possible in my opinion. 10/08/2016 still no word on radiation oncology. Patient O2 sat 90% on 2 L. Decreased breath sounds on right side. We need to proceed with radiation Exam (Progress Note) - Constitutional Vitals: Period Temp Pulse Resp BP Sys/Carvajal Pulse Ox Last 24 Hr 97.2 F-98.6 F 77-102 16-25 108-121/62-68 75-96 Exam: Patient's alert oriented vital signs normal pulse is about 105 and regular. Pupils react to light. Throat is clear. Neck supple no bruits. Chest reveals decreased breath sounds on the right. Left lung is clear. Heart normal rate and rhythm no murmurs. Abdomen soft nontender no masses. Extremities no clubbing cyanosis or edema. Calves nontender. Results - Labs CBC & BMP: 10/08/16 04:00 10/08/16 04:00 Lab Results: I have reviewed the past 24 hour labs Assessment and Plan (1) Obstruction right upper lobe Status: Acute Assessment and plan: Plan for bronchoscopy outpatient this morning. Please see dictation from that obstruction of right mainstem bronchus at this point. Consider radiation. External beem versus brachytherapy. 10/01/2016 right lung is obstructed. Needs radiation. Discussed case with Dr. Reddy. 10/02/2016 appears to have total right lung obstruction at present. To start radiation soon. Tumor is very friable and would be difficult to treat locally. 10/03/2016 has total obstruction of right lung. Follow-up x-ray pending. Hopefully can get started on radiation soon. The tumor extends up the right wall of the trachea about 5 cm. 10/04/2016 yesterday's x-ray looks better she is aerating the right middle and lower lobes. She is coughed up some thick secretions from there. We need to proceed with radiation. She has compromised airway. Radiation needs to go from about 5 cm above the los to just distal to the division of right middle and lower lobes. 10/07/2016 this is from progressive small cell lung cancer. The tumor was extremely friable. She could have hemorrhage anytime. She could have further obstruction anytime. We need to proceed with radiation. 10/08/2016 need to proceed with radiation Current Visit: Yes (2) metastatic small cell lung cancer Status: Acute Assessment and plan: Has known small cell lung cancer right lung with widespread metastasis. 09/30/2016 patient getting third line chemotherapy at this point. 10/01/2016 patient getting chemotherapy 10/02/2016 continuing with chemotherapy. 10/03/2016 patient has been receiving chemotherapy. 10/07/2016 has tolerated her last chemotherapy Current Visit: No (3) COPD (chronic obstructive pulmonary disease) Status: Chronic Assessment and plan: Chronic obstructive pulmonary disease treated with bronchodilators. She relates that one of the inhalers that we have prescribed she was not able to purchase. 09/30/2016 nasal oxygen and bronchodilators are helping. Oxygen saturation 96% on 2 L 10/01/2016 adequately oxygenated with current therapy. 10/02/2016 nasal oxygen and bronchodilators. 10/03/2016 no active bronchospasm 10/04/2016 we will put on duo nebs 4 times a day plus as needed albuterol. Continuing oxygen. 10/07/2016 continuing bronchodilators and oxygen. 117 no active bronchospasm. Tapering steroids Current Visit: No Specialty Discharge - Follow Up or Referrals
[2016-10-08] MEDS: predniSONE 10 MG TABLET PO SCH (09:34)
[2016-10-08] MEDS: LEVOTHYROXINE 50 MCG TABLET PO SCH (09:34)
[2016-10-08] MEDS: HYDROcodone/CHLORPHENIRAMINE ER 5 ML UDCUP PO SCH (09:34)
[2016-10-08] MEDS: MAGNESIUM CHLORIDE 64 MG TABLET PO SCH (09:35)
[2016-10-08] MEDS: FUROSEMIDE 40 MG TABLET PO SCH (09:35)
[2016-10-08] MEDS: METOPROLOL TARTRATE 50 MG TABLET PO SCH ×2 (09:35→18:37)
[2016-10-08] MEDS: ASPIRIN EC 81 MG TABLET PO SCH (09:35)
[2016-10-08] MEDS: DEXT 5% NACL 0.45% KCL 40 MEQ 40 MEQ/1,000 ML BAG IV SCH ×2 (09:35→20:37)
[2016-10-08] MEDS: LOSARTAN 25 MG TABLET PO SCH (09:35)
[2016-10-08] MEDS: POTASSIUM CHLORIDE 20 MEQ TABLET PO SCH ×2 (09:35→20:33)
[2016-10-08] MEDS: GRANISETRON 1 MG/1 ML VIAL IV SCH (09:39)
[2016-10-08] MEDS: DOXEPIN 25 MG CAPSULE PO SCH (20:33)
[2016-10-09] MEDS: ALBUTEROL/IPRATROPIUM 3 ML NEB RESP TX SCH ×4 (01:09→19:38)
[2016-10-09] MEDS: ONDANSETRON 4 MG TABLET PO SCH ×4 (03:40→20:54)
[2016-10-09 05:20] LABS: Basophils # 0.1 10*3/uL (0.0-0.2); Basophils % 0.6 % (0.0-0.8); Eosinophils % 0.1 % (0.00-10.9); Hematocrit 32.9 VOL% (35.7-47.0); Hemoglobin 10.4 GM/DL (12.0-16.0); Immature Granulocytes % 8.9 %; Immature Granulocytes Absolute 1.57 #; Lymphocytes # 1.4 10*3/uL (1.4-4.0); Lymphocytes % 7.9 % (21.3-54.2); Mean Corpuscular HGB Conc 31.6 GM/DL (32-36); Mean Corpuscular Hemoglobin 31 PG (27-34); Mean Corpuscular Volume 99.1 FL (87-102); Mean Platelet Volume 11.2 FL (9.6-12.0); Monocytes # 2.1 10*3/uL (0.11-0.8); NRBC # 0.13 10*3/uL; Neutrophils # 12.5 10*3/uL (1.4-7.4); Neutrophils % 70.5 % (38.7-73.9); Platelet Count 220 T/CUMM (130-400); Red Blood Count 3.32 MC/CUMM (3.8-5.5); Red Cell Distribution Width 14.4 % (9.3-17.3); White Blood Count 17.7 T/CUMM (4-12)
[2016-10-09 05:56] LABS: Alanine Aminotransferase 46 U/L (13-56); Albumin 3.1 G/DL (3.4-5.0); Alkaline Phosphatase 136 U/L (45-117); Aspartate Amino Transferase 30 U/L (0-37); Bilirubin,Total < 0.39 MG/DL (0.2-1.0); Blood Urea Nitrogen 13 MG/DL (7-18); Glucose 93 MG/DL (74-106); Osmolality,Calculated 280.3 MOS/KG (273-304); Potassium 4.8 MMOL/L (3.5-5.1); Sodium 141 MMOL/L (136-145); Total Protein 5.8 G/DL (6.4-8.3)
[2016-10-09 06:22] LABS: Band Neutrophils 13 % (0-10); Lymphocytes 9 % (20-55); Metamyelocytes 1 %; Nucleated Red Blood Cells 1 (0-5); Platelet Estimate Adequate; Segmented Neutrophils 68 % (50-85); Total Cells Counted 100
[2016-10-09 06:23] LABS: Giant Platelets Few; Hypochromasia 1+; Macrocytosis 1+; Ovalocytes Slight
--- NOTE | 2016-10-09 07:12 | Oncology Progress Note ---
Oncology Subjective PN Interval history: Small cell lung cancer with obstructive pneumonia: Ms. Pearson remains hospitalized with small cell carcinoma the lung with progression of disease on 2 prior combinations of chemotherapy. She has received a third combination of chemotherapy using BCNU 100 mg and Cytoxan 1000 mg given September 25, 2016. She has been evaluated by radiation oncology as well. She has progression of her cancer in the right mainstem bronchus with a white out of her right lung due to atelectasis. She has severe COPD complicating her lung cancer that has produced obstructive pneumonia. Breath sounds are significantly decreased in her right lung. Her chest x-ray done yesterday demonstrated worsening atelectasis of the right lung. I am rechecking a chest x-ray today. Leukopenia: Lab work today includes a white cell count of 17,700. The hemoglobin is 10.4 and the platelet count is 220,000. COPD: She has severe COPD that would have precluded surgery even if she were a candidate, which she was not. Her varying atelectasis is affecting her dyspnea. Her dyspnea is aggravated by the fact that she becomes extremely anxious. She is very hesitant to consider discharge. Hypokalemia: Lab work today includes serum potassium of 4.6. I am discontinuing IV fluids today and will continue p.o. potassium. We are still waiting to begin radiation therapy. The chemotherapy that she received is repeated every 4 weeks. Serum creatinine 0.6 Exam - Constitutional Vitals: Period Temp Pulse Resp BP Sys/Carvajal Pulse Ox Last 24 Hr 96.4 F-98.8 F 61-99 16-23 119-150/67-90 85-98 Results - Labs CBC & BMP: 10/10/16 03:50 10/10/16 03:50 Specialty Discharge - Follow Up or Referrals
[2016-10-09] MEDS ORDERED: HEPARIN LOCK FLUSH 500 UNIT/5 ML SYRINGE IV ONE (07:41)
--- NOTE | 2016-10-09 09:19 | Pulmonology Progress Note ---
Pulmonary - PN: Subj Interval history: 10/01/2016 this 66-year-old black female has advanced small cell lung cancer. I saw her yesterday and discussed the case with Dr. Reddy. I dictated a note but it did not get placed in the chart. We discussed radiation and she is going to have it. This note is dictated 10/02/16. 10/03/2016 patient is not dyspneic at rest. Tolerating chemotherapy. Starting to cough up some phlegm. Chest x-ray has been ordered for today. Radiation oncology consult is still pending. Hopefully they can get started on radiation soon. 10/04/2016 patient having episodes of dyspnea requiring extra oxygen at night. We need to proceed with radiation as soon as we can. She has obstruction of right main bronchus with small cell lung cancer. 10/07/2016 patient has done well the last round of chemotherapy. We are still awaiting word from radiation oncology. She needs to start as soon as possible in my opinion. 10/08/2016 still no word on radiation oncology. Patient O2 sat 90% on 2 L. Decreased breath sounds on right side. We need to proceed with radiation 10-09-16 still awaiting radiation oncology. Each x-ray shows some atelectasis in different portions of the right lung. She is coughing up some phlegm and I think she has some mucus plugging. The tumor is very friable and there is really nothing I can do with the bronchoscope that would not cause serious bleeding. Exam (Progress Note) - Constitutional Vitals: Period Temp Pulse Resp BP Sys/Carvajal Pulse Ox Last 24 Hr 96.4 F-98.8 F 61-99 18-23 119-150/67-90 85-98 Exam: Patient's alert oriented vital signs normal pulse is about 105 and regular. Pupils react to light. Throat is clear. Neck supple no bruits. Chest reveals decreased breath sounds on the right. Left lung is clear. Heart normal rate and rhythm no murmurs. Abdomen soft nontender no masses. Extremities no clubbing cyanosis or edema. Calves nontender. Results - Labs CBC & BMP: 10/09/16 04:00 10/09/16 04:00 Lab Results: I have reviewed the past 24 hour labs - Diagnostic Findings Procedure: Chest x-ray: image reviewed by me (Atelectasis of much of the right lung although about half of that he is aerated. Left lung is clear.) Assessment and Plan (1) Obstruction right upper lobe Status: Acute Assessment and plan: Plan for bronchoscopy outpatient this morning. Please see dictation from that obstruction of right mainstem bronchus at this point. Consider radiation. External beem versus brachytherapy. 10/01/2016 right lung is obstructed. Needs radiation. Discussed case with Dr. Reddy. 10/02/2016 appears to have total right lung obstruction at present. To start radiation soon. Tumor is very friable and would be difficult to treat locally. 10/03/2016 has total obstruction of right lung. Follow-up x-ray pending. Hopefully can get started on radiation soon. The tumor extends up the right wall of the trachea about 5 cm. 10/04/2016 yesterday's x-ray looks better she is aerating the right middle and lower lobes. She is coughed up some thick secretions from there. We need to proceed with radiation. She has compromised airway. Radiation needs to go from about 5 cm above the los to just distal to the division of right middle and lower lobes. 10/07/2016 this is from progressive small cell lung cancer. The tumor was extremely friable. She could have hemorrhage anytime. She could have further obstruction anytime. We need to proceed with radiation. 10/08/2016 need to proceed with radiation 10/09/16 there is some obstruction involving the lower lobe as well. Need to proceed with radiation. Current Visit: Yes (2) metastatic small cell lung cancer Status: Acute Assessment and plan: Has known small cell lung cancer right lung with widespread metastasis. 09/30/2016 patient getting third line chemotherapy at this point. 10/01/2016 patient getting chemotherapy 10/02/2016 continuing with chemotherapy. 10/03/2016 patient has been receiving chemotherapy. 10/07/2016 has tolerated her last chemotherapy Current Visit: No (3) COPD (chronic obstructive pulmonary disease) Status: Chronic Assessment and plan: Chronic obstructive pulmonary disease treated with bronchodilators. She relates that one of the inhalers that we have prescribed she was not able to purchase. 09/30/2016 nasal oxygen and bronchodilators are helping. Oxygen saturation 96% on 2 L 10/01/2016 adequately oxygenated with current therapy. 10/02/2016 nasal oxygen and bronchodilators. 10/03/2016 no active bronchospasm 10/04/2016 we will put on duo nebs 4 times a day plus as needed albuterol. Continuing oxygen. 10/07/2016 continuing bronchodilators and oxygen. 10/08/16 no active bronchospasm. Tapering steroids 10-09-16 no active bronchospasm. Continue to taper steroids Current Visit: No Specialty Discharge - Follow Up or Referrals
--- NOTE | 2016-10-09 09:30 | XRay Report ---
XR chest 1V portable Indication: Lung cancer/atelectasis Comparison: Chest x-ray dated October 07, 2016 Technique: Single frontal view of the chest. Findings: Continued cardiomegaly. Port catheter appears grossly unchanged. Progressive volume loss within the right lung with continued significant pleural-parenchymal abnormality on the right with increased atelectasis/consolidation within the right lung base. Visualized osseous and surrounding soft tissue structures appear grossly unchanged. IMPRESSION: As above. PROCEDURE INTERPRETED AT [facility] DEPARTMENT OF RADIOLOGY Final Report Signed by: Dr Abdirashid Gamez
[2016-10-09] MEDS: ONDANSETRON 4 MG/2 ML VIAL IV PRN (09:38)
[2016-10-09] MEDS: GRANISETRON 1 MG/1 ML VIAL IV SCH (09:41)
[2016-10-09] MEDS: ASPIRIN EC 81 MG TABLET PO SCH (09:44)
[2016-10-09] MEDS: LEVOTHYROXINE 50 MCG TABLET PO SCH (09:44)
[2016-10-09] MEDS: LOSARTAN 25 MG TABLET PO SCH (09:45)
[2016-10-09] MEDS: FUROSEMIDE 40 MG TABLET PO SCH (09:45)
[2016-10-09] MEDS: predniSONE 10 MG TABLET PO SCH (09:45)
[2016-10-09] MEDS: MAGNESIUM CHLORIDE 64 MG TABLET PO SCH (09:45)
[2016-10-09] MEDS: METOPROLOL TARTRATE 50 MG TABLET PO SCH ×2 (09:45→18:04)
[2016-10-09] MEDS: POTASSIUM CHLORIDE 20 MEQ TABLET PO SCH ×2 (09:46→20:53)
[2016-10-09] MEDS: ALPRAZolam 0.25 MG TABLET PO PRN ×3 (11:02→20:54)
[2016-10-09] MEDS: MORPHINE 2 MG/1 ML SYRINGE IV PRN ×2 (11:03→13:32)
[2016-10-09] MEDS: HYDROcodone/CHLORPHENIRAMINE ER 5 ML UDCUP PO SCH ×2 (13:31→20:56)
[2016-10-09] MEDS: DOXEPIN 25 MG CAPSULE PO SCH (20:54)
[2016-10-10] MEDS: ALBUTEROL/IPRATROPIUM 3 ML NEB RESP TX SCH ×4 (01:21→19:15)
[2016-10-10] MEDS: ONDANSETRON 4 MG TABLET PO SCH ×4 (03:26→21:11)
[2016-10-10 05:23] LABS: Basophils # 0.1 10*3/uL (0.0-0.2); Basophils % 0.6 % (0.0-0.8); Eosinophils % 0.1 % (0.00-10.9); Hematocrit 35.9 VOL% (35.7-47.0); Hemoglobin 11.4 GM/DL (12.0-16.0); Immature Granulocytes Absolute 0.68 #; Lymphocytes # 1.1 10*3/uL (1.4-4.0); Mean Corpuscular HGB Conc 31.8 GM/DL (32-36); Mean Corpuscular Hemoglobin 32 PG (27-34); Mean Corpuscular Volume 99.2 FL (87-102); Mean Platelet Volume 11.9 FL (9.6-12.0); Monocytes # 1.2 10*3/uL (0.11-0.8); Monocytes % 11.8 % (1.7-12.7); NRBC # 0.07 10*3/uL; Neutrophils # 6.8 10*3/uL (1.4-7.4); Neutrophils % 69.5 % (38.7-73.9); Platelet Count 208 T/CUMM (130-400); Red Blood Count 3.62 MC/CUMM (3.8-5.5); Red Cell Distribution Width 14.4 % (9.3-17.3); White Blood Count 9.8 T/CUMM (4-12)
[2016-10-10 06:01] LABS: Albumin 3.2 G/DL (3.4-5.0); Bilirubin,Total 0.8 MG/DL (0.2-1.0); Calcium 9.4 MG/DL (8.5-10.1); Osmolality,Calculated 274.7 MOS/KG (273-304); Potassium 5.2 MMOL/L (3.5-5.1); Total Protein 6.4 G/DL (6.4-8.3)
[2016-10-10 06:09] LABS: Band Neutrophils 2 % (0-10); Eosinophils 2 % (0-10); Hypochromasia 2+; Lymphocytes 11 % (20-55); Metamyelocytes 3 %; Myelocytes 2 %; Platelet Estimate Normal; Segmented Neutrophils 68 % (50-85); Total Cells Counted 100
[2016-10-10 06:10] LABS: Anisocytosis Slight; Macrocytosis Slight
--- NOTE | 2016-10-10 06:48 | Oncology Progress Note ---
Oncology Subjective PN Interval history: Radiation therapy apparently started. Small cell lung cancer with obstructive pneumonia: Ms. Pearson remains hospitalized with small cell carcinoma the lung with progression of disease on 2 prior combinations of chemotherapy. She has received a third combination of chemotherapy using BCNU 100 mg and Cytoxan 1000 mg given September 25, 2016. The atelectasis of the right lung is worsening. I reviewed the chest x-ray done yesterday. Leukopenia: Lab work today includes a white cell count of . 9800 with an absolute neutrophil count of 6800. Anemia:Hemoglobin up to 11.4. COPD: She has severe COPD that would have precluded surgery even if she were a candidate, which she was not. Her varying atelectasis is affecting her dyspnea. Her dyspnea is aggravated by the fact that she becomes extremely anxious. Breath sounds are decreased in the right lung. She is very hesitant to consider discharge. This is a very difficult and complicated case. We will recheck chest x-ray in the morning. Hypokalemia: Potassium slightly elevated at 5.2. Platelets 208,000. Exam - Constitutional Vitals: Period Temp Pulse Resp BP Sys/Carvajal Pulse Ox Last 24 Hr 96.4 F-98.4 F 61-84 14-24 115-139/67-78 61-99 Results - Labs CBC & BMP: 10/10/16 03:50 10/10/16 03:50 Specialty Discharge - Follow Up or Referrals
[2016-10-10] MEDS ORDERED: HEPARIN LOCK FLUSH 500 UNIT/5 ML SYRINGE IV ONE (07:17)
[2016-10-10] MEDS: ALPRAZolam 0.25 MG TABLET PO PRN ×4 (07:21→21:11)
[2016-10-10] MEDS: MORPHINE 2 MG/1 ML SYRINGE IV PRN ×4 (07:22→21:11)
--- NOTE | 2016-10-10 07:49 | Pulmonology Progress Note ---
Pulmonary - PN: Subj Interval history: 10/01/2016 this 66-year-old black female has advanced small cell lung cancer. I saw her yesterday and discussed the case with Dr. Reddy. I dictated a note but it did not get placed in the chart. We discussed radiation and she is going to have it. This note is dictated 10/02/16. 10/03/2016 patient is not dyspneic at rest. Tolerating chemotherapy. Starting to cough up some phlegm. Chest x-ray has been ordered for today. Radiation oncology consult is still pending. Hopefully they can get started on radiation soon. 10/04/2016 patient having episodes of dyspnea requiring extra oxygen at night. We need to proceed with radiation as soon as we can. She has obstruction of right main bronchus with small cell lung cancer. 10/07/2016 patient has done well the last round of chemotherapy. We are still awaiting word from radiation oncology. She needs to start as soon as possible in my opinion. 10/08/2016 still no word on radiation oncology. Patient O2 sat 90% on 2 L. Decreased breath sounds on right side. We need to proceed with radiation 10-09-16 still awaiting radiation oncology. Each x-ray shows some atelectasis in different portions of the right lung. She is coughing up some phlegm and I think she has some mucus plugging. The tumor is very friable and there is really nothing I can do with the bronchoscope that would not cause serious bleeding. 10/10/2016 patient started radiation yesterday. To get second round today. No immediate problems. Breathing is better. Not coughing up blood. I think patient is where she could be discharged. She has oxygen at home. Would keep her on low-dose prednisone. Exam (Progress Note) - Constitutional Vitals: Period Temp Pulse Resp BP Sys/Carvajal Pulse Ox Last 24 Hr 96.4 F-98.9 F 61-85 14-24 115-139/69-78 61-99 Exam: Patient's alert oriented vital signs normal pulse is about 80 and regular. Pupils react to light. Throat is clear. Neck supple no bruits. Chest reveals decreased breath sounds on the right, but they are present. Left lung is clear. Heart normal rate and rhythm no murmurs. Abdomen soft nontender no masses. Extremities no clubbing cyanosis or edema. Calves nontender. Results - Labs CBC & BMP: 10/10/16 03:50 10/10/16 03:50 Lab Results: I have reviewed the past 24 hour labs Assessment and Plan (1) Obstruction right upper lobe Status: Acute Assessment and plan: Plan for bronchoscopy outpatient this morning. Please see dictation from that obstruction of right mainstem bronchus at this point. Consider radiation. External beem versus brachytherapy. 10/01/2016 right lung is obstructed. Needs radiation. Discussed case with Dr. Reddy. 10/02/2016 appears to have total right lung obstruction at present. To start radiation soon. Tumor is very friable and would be difficult to treat locally. 10/03/2016 has total obstruction of right lung. Follow-up x-ray pending. Hopefully can get started on radiation soon. The tumor extends up the right wall of the trachea about 5 cm. 10/04/2016 yesterday's x-ray looks better she is aerating the right middle and lower lobes. She is coughed up some thick secretions from there. We need to proceed with radiation. She has compromised airway. Radiation needs to go from about 5 cm above the los to just distal to the division of right middle and lower lobes. 10/07/2016 this is from progressive small cell lung cancer. The tumor was extremely friable. She could have hemorrhage anytime. She could have further obstruction anytime. We need to proceed with radiation. 10/08/2016 need to proceed with radiation 10/09/16 there is some obstruction involving the lower lobe as well. Need to proceed with radiation. 10/10/2016 patient has had chemotherapy. Started radiation therapy yesterday. Getting second dose today. Can be discharged from pulmonary standpoint. Current Visit: Yes (2) metastatic small cell lung cancer Status: Acute Assessment and plan: Has known small cell lung cancer right lung with widespread metastasis. 09/30/2016 patient getting third line chemotherapy at this point. 10/01/2016 patient getting chemotherapy 10/02/2016 continuing with chemotherapy. 10/03/2016 patient has been receiving chemotherapy. 10/07/2016 has tolerated her last chemotherapy 10/10/2016 now getting radiation therapy for obstruction of right lung with metastatic lung cancer. Current Visit: No (3) COPD (chronic obstructive pulmonary disease) Status: Chronic Assessment and plan: Chronic obstructive pulmonary disease treated with bronchodilators. She relates that one of the inhalers that we have prescribed she was not able to purchase. 09/30/2016 nasal oxygen and bronchodilators are helping. Oxygen saturation 96% on 2 L 10/01/2016 adequately oxygenated with current therapy. 10/02/2016 nasal oxygen and bronchodilators. 10/03/2016 no active bronchospasm 10/04/2016 we will put on duo nebs 4 times a day plus as needed albuterol. Continuing oxygen. 10/07/2016 continuing bronchodilators and oxygen. 10/08/16 no active bronchospasm. Tapering steroids 10-09-16 no active bronchospasm. Continue to taper steroids 10/10/2016 would keep on low-dose prednisone about 10 mg daily. Continue bronchodilators. She has home oxygen. She has bronchodilators. Can be discharge as needed from my standpoint Current Visit: No Specialty Discharge - Follow Up or Referrals
[2016-10-10] MEDS: POTASSIUM CHLORIDE 20 MEQ TABLET PO SCH (08:26)
[2016-10-10] MEDS: GRANISETRON 1 MG/1 ML VIAL IV SCH (08:43)
[2016-10-10] MEDS: ASPIRIN EC 81 MG TABLET PO SCH (08:48)
[2016-10-10] MEDS: LOSARTAN 25 MG TABLET PO SCH (08:49)
[2016-10-10] MEDS: METOPROLOL TARTRATE 50 MG TABLET PO SCH ×2 (08:49→17:53)
[2016-10-10] MEDS: LEVOTHYROXINE 50 MCG TABLET PO SCH (08:50)
[2016-10-10] MEDS: FUROSEMIDE 40 MG TABLET PO SCH (08:50)
[2016-10-10] MEDS: predniSONE 10 MG TABLET PO SCH (08:50)
[2016-10-10] MEDS: MAGNESIUM CHLORIDE 64 MG TABLET PO SCH (08:51)
[2016-10-10] MEDS: HYDROcodone/CHLORPHENIRAMINE ER 5 ML UDCUP PO SCH ×2 (08:52→21:13)
[2016-10-10] MEDS: ONDANSETRON 4 MG/2 ML VIAL IV PRN ×2 (12:46→19:17)
[2016-10-10] MEDS: DOXEPIN 25 MG CAPSULE PO SCH (21:10)
[2016-10-11] MEDS: ALBUTEROL/IPRATROPIUM 3 ML NEB RESP TX SCH ×4 (00:43→19:36)
[2016-10-11] MEDS: ONDANSETRON 4 MG TABLET PO SCH ×4 (04:34→20:55)
[2016-10-11 05:03] LABS: Basophils % 0.2 % (0.0-0.8); Hematocrit 35.7 VOL% (35.7-47.0); Hemoglobin 11.8 GM/DL (12.0-16.0); Immature Granulocytes Absolute 0.35 #; Lymphocytes % 11.9 % (21.3-54.2); Mean Corpuscular HGB Conc 33.1 GM/DL (32-36); Mean Corpuscular Hemoglobin 32 PG (27-34); Mean Corpuscular Volume 96.5 FL (87-102); Mean Platelet Volume 11.2 FL (9.6-12.0); Monocytes # 1.1 10*3/uL (0.11-0.8); Monocytes % 12.5 % (1.7-12.7); NRBC # 0.03 10*3/uL; Neutrophils # 6.2 10*3/uL (1.4-7.4); Neutrophils % 71.4 % (38.7-73.9); Platelet Count 200 T/CUMM (130-400); White Blood Count 8.7 T/CUMM (4-12)
[2016-10-11 05:33] LABS: Albumin 3.3 G/DL (3.4-5.0); Bilirubin,Total 0.7 MG/DL (0.2-1.0); Calcium 9.5 MG/DL (8.5-10.1); Osmolality,Calculated 275.7 MOS/KG (273-304); Potassium 4.8 MMOL/L (3.5-5.1); Total Protein 6.6 G/DL (6.4-8.3)
[2016-10-11 05:39] LABS: Band Neutrophils 2 % (0-10); Lymphocytes 14 % (20-55); Metamyelocytes 3 %; Myelocytes 1 %; Platelet Estimate Normal; Segmented Neutrophils 75 % (50-85); Total Cells Counted 100
--- NOTE | 2016-10-11 06:52 | XRay Report ---
Exam: XR chest 1V portable Date: 10/11/2016 7:00 AM Indication: Lung cancer atelectasis Comparison: 10/09/2016 Technical: AP Findings: A left subclavian port catheter is present. This tip is in the superior vena cava. There is near complete opacification of the right hemithorax with only a small amount of residual aeration in the right apex. The left lung is clear. Degenerative change present thoracic spine. The heart border spot mostly obscured. Arthritic change present over the shoulders. Underlying pleural thickening is also suspected based on comparison with the previous CT scan 10/01/2016 for treatment planning Impression: 1. Near complete opacification the right hemithorax with only a small amount of residual aeration in the right apex which has continued to worsen when compared to the previous exam. This could represent underlying effusions or mass lesions are also felt to be present. 2. Stable position of left subclavian port catheter. PROCEDURE INTERPRETED AT [facility] DEPARTMENT OF RADIOLOGY Final Report Signed by: Dr. Tapan Kothari
--- NOTE | 2016-10-11 07:06 | Pulmonology Progress Note ---
Pulmonary - PN: Subj Interval history: 10/01/2016 this 66-year-old black female has advanced small cell lung cancer. I saw her yesterday and discussed the case with Dr. Reddy. I dictated a note but it did not get placed in the chart. We discussed radiation and she is going to have it. This note is dictated 10/02/16. 10/03/2016 patient is not dyspneic at rest. Tolerating chemotherapy. Starting to cough up some phlegm. Chest x-ray has been ordered for today. Radiation oncology consult is still pending. Hopefully they can get started on radiation soon. 10/04/2016 patient having episodes of dyspnea requiring extra oxygen at night. We need to proceed with radiation as soon as we can. She has obstruction of right main bronchus with small cell lung cancer. 10/07/2016 patient has done well the last round of chemotherapy. We are still awaiting word from radiation oncology. She needs to start as soon as possible in my opinion. 10/08/2016 still no word on radiation oncology. Patient O2 sat 90% on 2 L. Decreased breath sounds on right side. We need to proceed with radiation 10-09-16 still awaiting radiation oncology. Each x-ray shows some atelectasis in different portions of the right lung. She is coughing up some phlegm and I think she has some mucus plugging. The tumor is very friable and there is really nothing I can do with the bronchoscope that would not cause serious bleeding. 10/10/2016 patient started radiation yesterday. To get second round today. No immediate problems. Breathing is better. Not coughing up blood. I think patient is where she could be discharged. She has oxygen at home. Would keep her on low-dose prednisone. 10/11/16 66-year-old lady with small cell lung cancer with obstruction of right lung and tumor extending up into the trachea.. Friable tumor that bled with just touching with bronchoscope. She has had a round of third line chemotherapy. She has started radiation therapy this week. Has fairly extensive obstruction on the right side but there is some aeration on x-ray. She is only on 10 mg daily of prednisone. 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 Symptoms are stable. Prognosis is poor. Exam (Progress Note) - Constitutional Vitals: Period Temp Pulse Resp BP Sys/Carvajal Pulse Ox Last 24 Hr 96.6 F-99 F 64-86 14-26 109-136/63-77 85-99 Exam: Patient's alert oriented vital signs normal pulse is about 80 and regular. Pupils react to light. Throat is clear. Neck supple no bruits. Chest reveals decreased breath sounds on the right, but they are present. Left lung is clear. Heart normal rate and rhythm no murmurs. Abdomen soft nontender no masses. Extremities no clubbing cyanosis or edema. Calves nontender. Results - Labs CBC & BMP: 10/11/16 04:00 10/11/16 04:30 Lab Results: I have reviewed the past 24 hour labs - Diagnostic Findings Procedure: Chest x-ray: image reviewed by me (Some aeration of right long but mostly obstructed. Left lung clear.) Assessment and Plan (1) Obstruction right upper lobe Status: Acute Assessment and plan: Plan for bronchoscopy outpatient this morning. Please see dictation from that obstruction of right mainstem bronchus at this point. Consider radiation. External beem versus brachytherapy. 10/01/2016 right lung is obstructed. Needs radiation. Discussed case with Dr. Reddy. 10/02/2016 appears to have total right lung obstruction at present. To start radiation soon. Tumor is very friable and would be difficult to treat locally. 10/03/2016 has total obstruction of right lung. Follow-up x-ray pending. Hopefully can get started on radiation soon. The tumor extends up the right wall of the trachea about 5 cm. 10/04/2016 yesterday's x-ray looks better she is aerating the right middle and lower lobes. She is coughed up some thick secretions from there. We need to proceed with radiation. She has compromised airway. Radiation needs to go from about 5 cm above the los to just distal to the division of right middle and lower lobes. 10/07/2016 this is from progressive small cell lung cancer. The tumor was extremely friable. She could have hemorrhage anytime. She could have further obstruction anytime. We need to proceed with radiation. 10/08/2016 need to proceed with radiation 10/09/16 there is some obstruction involving the lower lobe as well. Need to proceed with radiation. 10/10/2016 patient has had chemotherapy. Started radiation therapy yesterday. Getting second dose today. Can be discharged from pulmonary standpoint. 10/11/2016 small cell lung cancer with obstruction. Continuing radiation. Increase prednisone to 20 mg daily. Current Visit: Yes (2) metastatic small cell lung cancer Status: Acute Assessment and plan: Has known small cell lung cancer right lung with widespread metastasis. 09/30/2016 patient getting third line chemotherapy at this point. 10/01/2016 patient getting chemotherapy 10/02/2016 continuing with chemotherapy. 10/03/2016 patient has been receiving chemotherapy. 10/07/2016 has tolerated her last chemotherapy 10/10/2016 now getting radiation therapy for obstruction of right lung with metastatic lung cancer. Current Visit: No (3) COPD (chronic obstructive pulmonary disease) Status: Chronic Assessment and plan: Chronic obstructive pulmonary disease treated with bronchodilators. She relates that one of the inhalers that we have prescribed she was not able to purchase. 09/30/2016 nasal oxygen and bronchodilators are helping. Oxygen saturation 96% on 2 L 10/01/2016 adequately oxygenated with current therapy. 10/02/2016 nasal oxygen and bronchodilators. 10/03/2016 no active bronchospasm 10/04/2016 we will put on duo nebs 4 times a day plus as needed albuterol. Continuing oxygen. 10/07/2016 continuing bronchodilators and oxygen. 10/08/16 no active bronchospasm. Tapering steroids 10-09-16 no active bronchospasm. Continue to taper steroids 10/10/2016 would keep on low-dose prednisone about 10 mg daily. Continue bronchodilators. She has home oxygen. She has bronchodilators. Can be discharge as needed from my standpoint 10/11/2016 mild cough. Not really wheezing at present. Current Visit: No Specialty Discharge - Follow Up or Referrals
--- NOTE | 2016-10-11 07:24 | Oncology Progress Note ---
Oncology Subjective PN Interval history: Small cell lung cancer with obstructive pneumonia: Ms. Pearson remains hospitalized with small cell carcinoma the lung with progression of disease on 2 prior combinations of chemotherapy. She has received a third combination of chemotherapy using BCNU 100 mg and Cytoxan 1000 mg given September 25, 2016. The atelectasis of the right lung is worsening. She has a white out of the right lung today. I do not see any point in repeating chemotherapy since she has progressed on third line. Leukopenia: Lab work today includes a white cell count of 8700 with an absolute neutrophil count of 6200 Platelet count 200,000 Creatinine 0.7 Anemia:Hemoglobin up to 11.8. COPD: She has severe COPD that would have precluded surgery even if she were a candidate, which she was not. Her varying atelectasis is affecting her dyspnea. Her dyspnea is aggravated by the fact that she becomes extremely anxious. Breath sounds are absent in the right lung and her chest x-ray is worse. This is a very difficult and complicated case. We will recheck chest x- ray in the morning. Hypokalemia: .Potassium normal at 4.8. She is on 20 mEq of potassium chloride p.o. daily. We will continue checking CBCs and comprehensive metabolic profiles. At this point she does not appear to be any better than she was when she was admitted and I am not certain that she will survive this hospital stay. Exam - Constitutional Vitals: Period Temp Pulse Resp BP Sys/Carvajal Pulse Ox Last 24 Hr 96.6 F-99 F 64-86 14-26 109-136/63-77 85-99 Results - Labs CBC & BMP: 10/11/16 04:00 10/11/16 04:30 Specialty Discharge - Follow Up or Referrals
[2016-10-11] MEDS: MAGNESIUM CHLORIDE 64 MG TABLET PO SCH (08:52)
[2016-10-11] MEDS: METOPROLOL TARTRATE 50 MG TABLET PO SCH ×2 (08:52→18:09)
[2016-10-11] MEDS: LEVOTHYROXINE 50 MCG TABLET PO SCH (08:52)
[2016-10-11] MEDS: ASPIRIN EC 81 MG TABLET PO SCH (08:52)
[2016-10-11] MEDS: POTASSIUM CHLORIDE 20 MEQ TABLET PO SCH (08:52)
[2016-10-11] MEDS: LOSARTAN 25 MG TABLET PO SCH (08:52)
[2016-10-11] MEDS: predniSONE 20 MG TABLET PO SCH (08:52)
[2016-10-11] MEDS: FUROSEMIDE 40 MG TABLET PO SCH (08:52)
[2016-10-11] MEDS: HYDROcodone/CHLORPHENIRAMINE ER 5 ML UDCUP PO SCH ×2 (08:53→20:56)
[2016-10-11] MEDS: MORPHINE 2 MG/1 ML SYRINGE IV PRN ×3 (08:53→18:09)
[2016-10-11] MEDS: GRANISETRON 1 MG/1 ML VIAL IV SCH (08:53)
[2016-10-11] MEDS ORDERED: HEPARIN LOCK FLUSH 500 UNIT/5 ML SYRINGE IV ONE (18:04)
[2016-10-11] MEDS: ONDANSETRON 4 MG/2 ML VIAL IV PRN (18:09)
[2016-10-11] MEDS: DOXEPIN 25 MG CAPSULE PO SCH (20:55)
[2016-10-12] MEDS: ALBUTEROL/IPRATROPIUM 3 ML NEB RESP TX SCH ×4 (00:20→19:56)
[2016-10-12] MEDS: ONDANSETRON 4 MG TABLET PO SCH ×4 (03:18→20:45)
[2016-10-12 05:25] LABS: Basophils % 0.4 % (0.0-0.8); Hematocrit 35.6 VOL% (35.7-47.0); Hemoglobin 11.5 GM/DL (12.0-16.0); Immature Granulocytes % 1.8 %; Lymphocytes # 0.7 10*3/uL (1.4-4.0); Mean Corpuscular HGB Conc 32.3 GM/DL (32-36); Mean Corpuscular Hemoglobin 31 PG (27-34); Mean Corpuscular Volume 94.9 FL (87-102); Mean Platelet Volume 11.9 FL (9.6-12.0); Monocytes # 1.2 10*3/uL (0.11-0.8); Monocytes % 11.2 % (1.7-12.7); Neutrophils # 8.9 10*3/uL (1.4-7.4); Neutrophils % 80.6 % (38.7-73.9); Platelet Count 224 T/CUMM (130-400); Red Blood Count 3.75 MC/CUMM (3.8-5.5); Red Cell Distribution Width 14.3 % (9.3-17.3)
[2016-10-12 06:07] LABS: Albumin 3.4 G/DL (3.4-5.0); Bilirubin,Total 0.8 MG/DL (0.2-1.0); Calcium 9.9 MG/DL (8.5-10.1); Osmolality,Calculated 282.5 MOS/KG (273-304); Potassium 4.3 MMOL/L (3.5-5.1); Total Protein 6.6 G/DL (6.4-8.3)
[2016-10-12] MEDS: ONDANSETRON 4 MG/2 ML VIAL IV PRN (06:53)
[2016-10-12] MEDS: MORPHINE 2 MG/1 ML SYRINGE IV PRN ×2 (06:55→15:59)
--- NOTE | 2016-10-12 08:51 | Pulmonology Progress Note ---
Pulmonary - PN: Subj Interval history: The patient is a 66-year-old black lady that has recurrent small cell carcinoma the lung. Now she has worsening tumor in the right lower trachea and obstructing the right upper lung. She has been getting chemotherapy and is started on radiation therapy. She still gets very short of breath easily. She says she is coughing up a little sputum without blood now. She has a poor appetite but is taking in some liquids. Overall she is about the same. Exam (Progress Note) - Constitutional Vitals: Period Temp Pulse Resp BP Sys/Carvajal Pulse Ox Last 24 Hr 96.4 F-98 F 68-94 18-25 97-123/57-73 90-98 Exam: General appearance: normal weight, she looks comfortable lying in bed with low flow oxygen in place. She is able to talk okay without problems. - Head Head exam: Present: normal inspection, normocephalic - Eye Eye exam: Present: EOMI. Absent: scleral icterus Pupils: Present: [id number] - ENT ENT exam: Present: normal exam - Neck Neck exam: Present: normal inspection. Absent: lymphadenopathy, thyromegaly - Respiratory Respiratory exam: Present: She still has very diminished breath sounds on the right compared to the left. I do not hear any wheezing. Her left lung is fairly clear. - Cardiovascular Cardiovascular exam: Present: She has regular heart rate without a gallop. - GI/Abdominal GI/Abdominal exam: Present: normal bowel sounds, soft. Absent: distended, organomegaly, tenderness - Extremities Exam Extremities exam: Absent: calf tenderness, edema - Neurological Exam Neurological exam: Present: alert, oriented X3, CN II-XII intact. Absent: motor sensory deficit - Psychiatric Psychiatric exam: Absent: She is resting comfortably at present. - Skin Skin exam: Present: warm, dry Results - Labs CBC & BMP: 10/12/16 04:30 10/12/16 04:30 - Diagnostic Findings Procedure: Chest x-ray: image reviewed by me, report reviewed by me (Chest x- ray still shows an opacified right lung.) Assessment and Plan (1) metastatic small cell lung cancer Status: Acute Assessment and plan: The patient apparently has recurrent small cell cancer of the lung. She received a course of chemotherapy. She is very debilitated but is comfortable at present. Current Visit: No (2) COPD (chronic obstructive pulmonary disease) Status: Chronic Assessment and plan: Patient is tolerating treatments fairly well and is breathing comfortably at present. Current Visit: No (3) Obstruction right upper lobe Status: Acute Assessment and plan: The patient has tumor in her distal trachea and obstructing the right upper lobe. She is getting radiation therapy now and hopefully will open up her lung. Current Visit: Yes (4) Atrial fibrillation with RVR Status: Acute Assessment and plan: The patient has a regular heart rhythm now. Current Visit: Yes Specialty Discharge - Follow Up or Referrals
--- NOTE | 2016-10-12 09:41 | Oncology Progress Note ---
Assessment and Plan (1) Cancer of right lung Status: Chronic Current Visit: No Qualifiers: Lung location: unspecified part of lung Qualified Code(s): C34.91 - Malignant neoplasm of unspecified part of right bronchus or lung (2) metastatic small cell lung cancer Status: Acute Current Visit: No (3) COPD (chronic obstructive pulmonary disease) Status: Chronic Current Visit: No (4) Pneumonia Problem details: possibly developiong PNA on Lt perihilar side. Status: Acute Current Visit: No Qualifiers: Pneumonia type: due to unspecified organism Laterality: right Lung location: lower lobe of lung Qualified Code(s): J18.9 - Pneumonia, unspecified organism (5) Debility Status: Acute Current Visit: No Oncology Subjective PN Interval history: Ms. Pearson was sitting in bed this morning resting comfortably. She had no new complaints. She states she is actually breathing somewhat better than she was yesterday and her cough is nonproductive. On exam she has decreased breath sounds of the right lung but her left lung has clear breath sounds. She denies any abdominal pain. We are basically providing supportive care. We will continue with her current measures. Exam - Constitutional Vitals: Period Temp Pulse Resp BP Sys/Carvajal Pulse Ox Last 24 Hr 96.4 F-98 F 68-94 18-25 97-123/57-73 90-98 General appearance: normal weight, no acute distress - Head Head Exam: Present: normocephalic, atraumatic - Eye Eye Exam: Present: EOMI Pupils: Present: PERRL - ENT ENT exam: Present: normal exam, normal oropharynx - Neck Neck exam: Absent: lymphadenopathy, thyromegaly - Respiratory Respiratory exam: Present: CTAB. Absent: wheezes - Cardiovascular Cardiovascular exam: Present: RRR. Absent: irregular rhythm, JVD - GI/Abdominal GI/Abdominal exam: Present: soft. Absent: ascites, distended, firm, mass - Neurological Exam Neurological exam: Present: alert, oriented X3 - Psychiatric Psychiatric exam: Present: normal affect, normal mood - Skin Skin exam: Present: warm, dry Results - Labs CBC & BMP: 10/12/16 04:30 10/12/16 04:30 Lab Results: I have reviewed the past 24 hour labs Specialty Discharge - Follow Up or Referrals
[2016-10-12] MEDS: METOPROLOL TARTRATE 50 MG TABLET PO SCH ×2 (10:32→16:00)
[2016-10-12] MEDS: MAGNESIUM CHLORIDE 64 MG TABLET PO SCH (10:32)
[2016-10-12] MEDS: GRANISETRON 1 MG/1 ML VIAL IV SCH (10:32)
[2016-10-12] MEDS: FUROSEMIDE 40 MG TABLET PO SCH (10:32)
[2016-10-12] MEDS: HYDROcodone/CHLORPHENIRAMINE ER 5 ML UDCUP PO SCH ×2 (10:32→20:46)
[2016-10-12] MEDS: POTASSIUM CHLORIDE 20 MEQ TABLET PO SCH (10:33)
[2016-10-12] MEDS: LOSARTAN 25 MG TABLET PO SCH (10:33)
[2016-10-12] MEDS: ASPIRIN EC 81 MG TABLET PO SCH (10:33)
[2016-10-12] MEDS: ALPRAZolam 0.25 MG TABLET PO PRN (10:33)
[2016-10-12] MEDS: LEVOTHYROXINE 50 MCG TABLET PO SCH (10:34)
[2016-10-12] MEDS: MAGNESIUM HYDROXIDE SUSP 30 ML UDCUP PO PRN (10:34)
[2016-10-12] MEDS: predniSONE 20 MG TABLET PO SCH (10:34)
[2016-10-12] MEDS: DOXEPIN 25 MG CAPSULE PO SCH (20:45)
[2016-10-13] MEDS: ALBUTEROL/IPRATROPIUM 3 ML NEB RESP TX SCH ×4 (00:06→19:41)
[2016-10-13] MEDS: ONDANSETRON 4 MG TABLET PO SCH ×4 (02:39→20:08)
[2016-10-13] MEDS: ONDANSETRON 4 MG/2 ML VIAL IV PRN (04:24)
[2016-10-13] MEDS: MORPHINE 2 MG/1 ML SYRINGE IV PRN ×4 (04:26→20:05)
[2016-10-13 05:00] LABS: Basophils % 0.2 % (0.0-0.8); Hematocrit 34.6 VOL% (35.7-47.0); Hemoglobin 11.3 GM/DL (12.0-16.0); Immature Granulocytes % 1.1 %; Immature Granulocytes Absolute 0.17 #; Lymphocytes # 0.5 10*3/uL (1.4-4.0); Lymphocytes % 3.1 % (21.3-54.2); Mean Corpuscular HGB Conc 32.7 GM/DL (32-36); Mean Corpuscular Hemoglobin 31 PG (27-34); Mean Corpuscular Volume 95.1 FL (87-102); Mean Platelet Volume 11.1 FL (9.6-12.0); Monocytes # 1.3 10*3/uL (0.11-0.8); Monocytes % 8.2 % (1.7-12.7); NRBC # 0.02 10*3/uL; Neutrophils # 13.3 10*3/uL (1.4-7.4); Neutrophils % 87.4 % (38.7-73.9); Platelet Count 222 T/CUMM (130-400); Red Blood Count 3.64 MC/CUMM (3.8-5.5); Red Cell Distribution Width 14.1 % (9.3-17.3); White Blood Count 15.2 T/CUMM (4-12)
[2016-10-13 05:24] LABS: Albumin 3.2 G/DL (3.4-5.0); Bilirubin,Total 0.6 MG/DL (0.2-1.0); Calcium 9.5 MG/DL (8.5-10.1); Osmolality,Calculated 286.4 MOS/KG (273-304); Potassium 4.4 MMOL/L (3.5-5.1); Total Protein 6.5 G/DL (6.4-8.3)
[2016-10-13 05:37] LABS: Hypochromasia 1+; Lymphocytes 14 % (20-55); Metamyelocytes 1 %; Myelocytes 1 %; Segmented Neutrophils 80 % (50-85); Total Cells Counted 100
[2016-10-13 05:38] LABS: Platelet Estimate Normal
--- NOTE | 2016-10-13 08:17 | Oncology Progress Note ---
Assessment and Plan (1) Cancer of right lung Status: Chronic Current Visit: No Qualifiers: Lung location: unspecified part of lung Qualified Code(s): C34.91 - Malignant neoplasm of unspecified part of right bronchus or lung (2) metastatic small cell lung cancer Status: Acute Current Visit: No (3) COPD (chronic obstructive pulmonary disease) Status: Chronic Current Visit: No (4) Pneumonia Problem details: possibly developiong PNA on Lt perihilar side. Status: Acute Current Visit: No Qualifiers: Pneumonia type: due to unspecified organism Laterality: right Lung location: lower lobe of lung Qualified Code(s): J18.9 - Pneumonia, unspecified organism (5) Debility Status: Acute Current Visit: No Oncology Subjective PN Interval history: Ms. Pearson is about the same as yesterday. She still has significant dyspnea when she gets out of bed to go to the bathroom. She has a mild productive cough. She has been afebrile. She states that the mornings are worse in the afternoon. Her breathing seems to improve as the day goes on. I am unsure what the long-term plan for her is. She does not appear to be in a condition where she can go home to take care of herself. She is DNR. On exam today she is awake and alert. Her lungs show almost absent breath sounds of the right chest but good air movement with no wheezes of the left chest. She is not using any accessory muscles to breathe. Her heart is regular rate and rhythm with no murmurs gallops or rubs. Her abdomen is soft. Her skin is warm and dry with no evidence of jaundice. Exam - Constitutional Vitals: Period Temp Pulse Resp BP Sys/Carvajal Pulse Ox Last 24 Hr 96.1 F-98.8 F 66-106 18-22 100-109/57-63 88-99 Results - Labs CBC & BMP: 10/13/16 04:30 10/13/16 04:30 Lab Results: I have reviewed the past 24 hour labs Specialty Discharge - Follow Up or Referrals
[2016-10-13] MEDS ORDERED: HEPARIN LOCK FLUSH 500 UNIT/5 ML SYRINGE IV ONE (08:36)
[2016-10-13] MEDS: MAGNESIUM HYDROXIDE SUSP 30 ML UDCUP PO PRN (08:47)
[2016-10-13] MEDS: METOPROLOL TARTRATE 50 MG TABLET PO SCH ×2 (08:47→17:03)
[2016-10-13] MEDS: ALPRAZolam 0.25 MG TABLET PO PRN ×2 (08:48→20:08)
[2016-10-13] MEDS: predniSONE 20 MG TABLET PO SCH (08:48)
[2016-10-13] MEDS: LOSARTAN 25 MG TABLET PO SCH (08:48)
[2016-10-13] MEDS: GRANISETRON 1 MG/1 ML VIAL IV SCH (08:49)
[2016-10-13] MEDS: MAGNESIUM CHLORIDE 64 MG TABLET PO SCH (08:49)
[2016-10-13] MEDS: ASPIRIN EC 81 MG TABLET PO SCH (08:49)
[2016-10-13] MEDS: LEVOTHYROXINE 50 MCG TABLET PO SCH (08:49)
[2016-10-13] MEDS: HYDROcodone/CHLORPHENIRAMINE ER 5 ML UDCUP PO SCH ×2 (08:49→20:09)
[2016-10-13] MEDS: POTASSIUM CHLORIDE 20 MEQ TABLET PO SCH (08:49)
[2016-10-13] MEDS: FUROSEMIDE 40 MG TABLET PO SCH (08:49)
--- NOTE | 2016-10-13 09:42 | Pulmonology Progress Note ---
Pulmonary - PN: Subj Interval history: The patient is a 66-year-old black lady that has recurrent small cell carcinoma the lung. Now she has worsening tumor in the right lower trachea and obstructing the right upper lung. She has been getting chemotherapy and is started on radiation therapy. She still gets very short of breath easily. She says she has trouble in the morning times clearing her secretions. This gets better as the day goes on. She says she had a fairly good day and night yesterday. She still gets short of breath quite easily. She is tolerating her medication so far. Exam (Progress Note) - Constitutional Vitals: Period Temp Pulse Resp BP Sys/Carvajal Pulse Ox Last 24 Hr 96.1 F-98.8 F 66-106 18-22 100-109/57-63 88-99 Exam: General appearance: normal weight, she looks comfortable lying in bed with low flow oxygen in place. She is able to talk okay without problems. - Head Head exam: Present: normal inspection, normocephalic - Eye Eye exam: Present: EOMI. Absent: scleral icterus Pupils: Present: АЛЕКСАНДР - ENT ENT exam: Present: normal exam - Neck Neck exam: Present: normal inspection. Absent: lymphadenopathy, thyromegaly - Respiratory Respiratory exam: Present: She still has very diminished breath sounds on the right compared to the left. I do not hear any wheezing. Her left lung is fairly clear. - Cardiovascular Cardiovascular exam: Present: She has regular heart rate without a gallop. - GI/Abdominal GI/Abdominal exam: Present: normal bowel sounds, soft. Absent: distended, organomegaly, tenderness - Extremities Exam Extremities exam: Absent: calf tenderness, edema, she has no signs of phlebitis. - Neurological Exam Neurological exam: Present: alert, oriented X3, CN II-XII intact. Absent: motor sensory deficit, she is moving everything okay. - Psychiatric Psychiatric exam: Absent: She is resting comfortably at present. - Skin Skin exam: Present: warm, dry Results - Labs CBC & BMP: 10/13/16 04:30 10/13/16 04:30 Assessment and Plan (1) metastatic small cell lung cancer Status: Acute Assessment and plan: The patient apparently has recurrent small cell cancer of the lung. She has received a course of chemotherapy. She is very debilitated but is comfortable at present. Current Visit: No (2) COPD (chronic obstructive pulmonary disease) Status: Chronic Assessment and plan: Patient is tolerating treatments fairly well and is breathing comfortably at present. She has not had much change lately. Current Visit: No (3) Obstruction right upper lobe Status: Acute Assessment and plan: The patient has tumor in her distal trachea and obstructing the right upper lobe. She basically has little air in the right lung at all. She has been started on radiation therapy. Current Visit: Yes (4) Atrial fibrillation with RVR Status: Acute Assessment and plan: The patient has a regular heart rhythm now. Current Visit: Yes Specialty Discharge - Follow Up or Referrals
[2016-10-13] MEDS: DOXEPIN 25 MG CAPSULE PO SCH (20:08)
[2016-10-14] MEDS: ALBUTEROL/IPRATROPIUM 3 ML NEB RESP TX SCH ×4 (00:40→20:24)
[2016-10-14] MEDS: ONDANSETRON 4 MG TABLET PO SCH ×4 (02:27→20:48)
[2016-10-14] MEDS ORDERED: HEPARIN LOCK FLUSH 500 UNIT/5 ML SYRINGE IV ONE (04:10)
[2016-10-14 04:29] LABS: Basophils % 0.2 % (0.0-0.8); Eosinophils % 0.1 % (0.00-10.9); Hematocrit 32.6 VOL% (35.7-47.0); Hemoglobin 10.8 GM/DL (12.0-16.0); Immature Granulocytes % 1.9 %; Immature Granulocytes Absolute 0.32 #; Lymphocytes # 0.4 10*3/uL (1.4-4.0); Lymphocytes % 2.3 % (21.3-54.2); Mean Corpuscular HGB Conc 33.1 GM/DL (32-36); Mean Corpuscular Hemoglobin 32 PG (27-34); Mean Corpuscular Volume 96.2 FL (87-102); Mean Platelet Volume 11.1 FL (9.6-12.0); Monocytes % 6.1 % (1.7-12.7); Neutrophils # 15.3 10*3/uL (1.4-7.4); Neutrophils % 89.4 % (38.7-73.9); Platelet Count 190 T/CUMM (130-400); Red Blood Count 3.39 MC/CUMM (3.8-5.5); Red Cell Distribution Width 14.6 % (9.3-17.3); White Blood Count 17.1 T/CUMM (4-12)
[2016-10-14 05:02] LABS: Albumin 2.9 G/DL (3.4-5.0); Bilirubin,Total 0.7 MG/DL (0.2-1.0); Calcium 9.5 MG/DL (8.5-10.1); Osmolality,Calculated 286.3 MOS/KG (273-304); Potassium 4.7 MMOL/L (3.5-5.1); Total Protein 6.4 G/DL (6.4-8.3)
[2016-10-14 05:15] LABS: Band Neutrophils 3 % (0-10); Lymphocytes 2 % (20-55); Segmented Neutrophils 89 % (50-85); Total Cells Counted 100
[2016-10-14 05:16] LABS: Giant Platelets Few; Hypochromasia 1+; Platelet Estimate Adequate
[2016-10-14] MEDS: MORPHINE 2 MG/1 ML SYRINGE IV PRN ×3 (06:32→12:45)
--- NOTE | 2016-10-14 06:53 | Oncology Progress Note ---
Oncology Subjective PN Interval history: Small cell lung cancer with obstructive pneumonia: Ms. Pearson remains hospitalized with small cell carcinoma the lung with progression of disease on 2 prior combinations of chemotherapy. She has received a third combination of chemotherapy using BCNU 100 mg and Cytoxan 1000 mg given September 25, 2016. The atelectasis of the right lung is worsening. She has a white out of the right lung today. I do not see any point in repeating chemotherapy since she has progressed on third line.I have ordered a repeat chest x-ray for today. Breath sounds are absent in the right lung. Leukopenia: Lab work today includes a white cell count of 17,100 with an absolute neutrophil count of 15,300 Platelet count 190,000 Creatinine 0.8 Anemia:Hemoglobin up to 10.8. COPD: She has severe COPD that would have precluded surgery even if she were a candidate, which she was not. Her varying atelectasis is affecting her dyspnea. Her dyspnea is aggravated by the fact that she becomes extremely anxious. Breath sounds are absent in the right lung and her chest x-ray is worse. This is a very difficult and complicated case. We will recheck chest x- ray in the morning. Hypokalemia: .Potassium normal at 4.7. She is on 20 mEq of potassium chloride p.o. daily. We will continue checking CBCs and comprehensive metabolic profiles. Exam - Constitutional Vitals: Period Temp Pulse Resp BP Sys/Carvajal Pulse Ox Last 24 Hr 97 F-98.1 F 65-106 18-22 99-116/59-69 87-97 Results - Labs CBC & BMP: 10/14/16 04:00 10/14/16 04:00 Specialty Discharge - Follow Up or Referrals
--- NOTE | 2016-10-14 07:39 | Pulmonology Progress Note ---
Pulmonary - PN: Subj Interval history: 10/01/2016 this 66-year-old black female has advanced small cell lung cancer. I saw her yesterday and discussed the case with Dr. Reddy. I dictated a note but it did not get placed in the chart. We discussed radiation and she is going to have it. This note is dictated 10/02/16. 10/03/2016 patient is not dyspneic at rest. Tolerating chemotherapy. Starting to cough up some phlegm. Chest x-ray has been ordered for today. Radiation oncology consult is still pending. Hopefully they can get started on radiation soon. 10/04/2016 patient having episodes of dyspnea requiring extra oxygen at night. We need to proceed with radiation as soon as we can. She has obstruction of right main bronchus with small cell lung cancer. 10/07/2016 patient has done well the last round of chemotherapy. We are still awaiting word from radiation oncology. She needs to start as soon as possible in my opinion. 10/08/2016 still no word on radiation oncology. Patient O2 sat 90% on 2 L. Decreased breath sounds on right side. We need to proceed with radiation 10-09-16 still awaiting radiation oncology. Each x-ray shows some atelectasis in different portions of the right lung. She is coughing up some phlegm and I think she has some mucus plugging. The tumor is very friable and there is really nothing I can do with the bronchoscope that would not cause serious bleeding. 10/10/2016 patient started radiation yesterday. To get second round today. No immediate problems. Breathing is better. Not coughing up blood. I think patient is where she could be discharged. She has oxygen at home. Would keep her on low-dose prednisone. 10/11/16 66-year-old lady with small cell lung cancer with obstruction of right lung and tumor extending up into the trachea.. Friable tumor that bled with just touching with bronchoscope. She has had a round of third line chemotherapy. She has started radiation therapy this week. Has fairly extensive obstruction on the right side but there is some aeration on x-ray. She is only on 10 mg daily of prednisone. 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 Symptoms are stable. Prognosis is poor. 10/14/2016 patient is feeling better. Says the phlegm is looser. Chest x-ray today is clearly better. She is continuing with radiation therapy. Generally weak. From my standpoint, if she has enough assistance at home, she could be discharged and brought back and forth for radiation. She is on 20 mg daily of prednisone. Not on antibiotics at present. Has oxygen at home. Exam (Progress Note) - Constitutional Vitals: Period Temp Pulse Resp BP Sys/Carvajal Pulse Ox Last 24 Hr 97 F-98.1 F 65-104 18-22 99-116/59-69 87-97 Exam: Patient's alert oriented vital signs normal pulse is about 80 and regular. Pupils react to light. Throat is clear. Neck supple no bruits. Chest reveals decreased breath sounds on the right, but they are present. Left lung is clear. Heart normal rate and rhythm no murmurs. Abdomen soft nontender no masses. Extremities no clubbing cyanosis or edema. Calves nontender. Results - Labs CBC & BMP: 10/14/16 04:00 10/14/16 04:00 Lab Results: I have reviewed the past 24 hour labs - Diagnostic Findings Procedure: Chest x-ray: image reviewed by me (Patchy infiltrate right mid lung and right apex is atelectatic. Better aeration of the right lung compared to before. Left lung is clear.) Assessment and Plan (1) Obstruction right upper lobe Status: Acute Assessment and plan: Plan for bronchoscopy outpatient this morning. Please see dictation from that obstruction of right mainstem bronchus at this point. Consider radiation. External beem versus brachytherapy. 10/01/2016 right lung is obstructed. Needs radiation. Discussed case with Dr. Reddy. 10/02/2016 appears to have total right lung obstruction at present. To start radiation soon. Tumor is very friable and would be difficult to treat locally. 10/03/2016 has total obstruction of right lung. Follow-up x-ray pending. Hopefully can get started on radiation soon. The tumor extends up the right wall of the trachea about 5 cm. 10/04/2016 yesterday's x-ray looks better she is aerating the right middle and lower lobes. She is coughed up some thick secretions from there. We need to proceed with radiation. She has compromised airway. Radiation needs to go from about 5 cm above the los to just distal to the division of right middle and lower lobes. 10/07/2016 this is from progressive small cell lung cancer. The tumor was extremely friable. She could have hemorrhage anytime. She could have further obstruction anytime. We need to proceed with radiation. 10/08/2016 need to proceed with radiation 10/09/16 there is some obstruction involving the lower lobe as well. Need to proceed with radiation. 10/10/2016 patient has had chemotherapy. Started radiation therapy yesterday. Getting second dose today. Can be discharged from pulmonary standpoint. 10/11/2016 small cell lung cancer with obstruction. Continuing radiation. Increase prednisone to 20 mg daily. 10/14/2016 right upper lobe continues to be atelectatic on x-ray. However the remainder of the right lung is better aerated. Keep on 20 mg daily of prednisone. Continuing radiation, external Beem. Her tumor is very friable. Complete to clear secretions would not be a good idea. She is doing a pretty good job cleaning them on her own. Current Visit: Yes (2) metastatic small cell lung cancer Status: Acute Assessment and plan: Has known small cell lung cancer right lung with widespread metastasis. 09/30/2016 patient getting third line chemotherapy at this point. 10/01/2016 patient getting chemotherapy 10/02/2016 continuing with chemotherapy. 10/03/2016 patient has been receiving chemotherapy. 10/07/2016 has tolerated her last chemotherapy 10/10/2016 now getting radiation therapy for obstruction of right lung with metastatic lung cancer. 10/14/2016 continuing with radiation. She has had 3 different combinations of chemotherapy. Current Visit: No (3) COPD (chronic obstructive pulmonary disease) Status: Chronic Assessment and plan: Chronic obstructive pulmonary disease treated with bronchodilators. She relates that one of the inhalers that we have prescribed she was not able to purchase. 09/30/2016 nasal oxygen and bronchodilators are helping. Oxygen saturation 96% on 2 L 10/01/2016 adequately oxygenated with current therapy. 10/02/2016 nasal oxygen and bronchodilators. 10/03/2016 no active bronchospasm 10/04/2016 we will put on duo nebs 4 times a day plus as needed albuterol. Continuing oxygen. 10/07/2016 continuing bronchodilators and oxygen. 10/08/16 no active bronchospasm. Tapering steroids 10-09-16 no active bronchospasm. Continue to taper steroids 10/10/2016 would keep on low-dose prednisone about 10 mg daily. Continue bronchodilators. She has home oxygen. She has bronchodilators. Can be discharge as needed from my standpoint 10/11/2016 mild cough. Not really wheezing at present. 10/14/2016 no bronchospasm. Continuing oxygen and bronchodilators. Current Visit: No Specialty Discharge - Follow Up or Referrals
--- NOTE | 2016-10-14 08:03 | XRay Report ---
Portable chest. Indication: Lung cancer. Comparison: October 11, 2016. The heart is normal in size. Chemo-Port is in satisfactory position. The left lung is clear. There is atelectasis present in the right mid and lower lung field. There is pleural thickening in the right lung apex. There is pleural fluid along the major fissure on the right. There is interval improvement compared to the previous exam. Degenerative changes are noted within the spinal column and shoulders. Impression: Interval improvement in the appearance of the right lung. PROCEDURE INTERPRETED AT [facility] DEPARTMENT OF RADIOLOGY Final Report Signed by: Dr. Toya Clay
[2016-10-14] MEDS: predniSONE 20 MG TABLET PO SCH (08:35)
[2016-10-14] MEDS: ALPRAZolam 0.25 MG TABLET PO PRN ×2 (08:35→12:44)
[2016-10-14] MEDS: LOSARTAN 25 MG TABLET PO SCH (08:35)
[2016-10-14] MEDS: LEVOTHYROXINE 50 MCG TABLET PO SCH (08:36)
[2016-10-14] MEDS: FUROSEMIDE 40 MG TABLET PO SCH (08:36)
[2016-10-14] MEDS: METOPROLOL TARTRATE 50 MG TABLET PO SCH ×2 (08:36→17:32)
[2016-10-14] MEDS: ASPIRIN EC 81 MG TABLET PO SCH (08:37)
[2016-10-14] MEDS: MAGNESIUM CHLORIDE 64 MG TABLET PO SCH (08:37)
[2016-10-14] MEDS: POTASSIUM CHLORIDE 20 MEQ TABLET PO SCH (08:38)
[2016-10-14] MEDS: HYDROcodone/CHLORPHENIRAMINE ER 5 ML UDCUP PO SCH ×2 (08:39→20:47)
[2016-10-14] MEDS: GRANISETRON 1 MG/1 ML VIAL IV SCH (08:42)
[2016-10-14] MEDS: DOXEPIN 25 MG CAPSULE PO SCH (20:48)
[2016-10-15] MEDS: ALBUTEROL/IPRATROPIUM 3 ML NEB RESP TX SCH ×4 (00:43→19:05)
[2016-10-15] MEDS: ONDANSETRON 4 MG TABLET PO SCH ×5 (00:54→21:32)
--- NOTE | 2016-10-15 07:53 | Oncology Progress Note ---
Oncology Subjective PN Interval history: Small cell lung cancer with obstructive pneumonia: Ms. Pearson remains hospitalized with small cell carcinoma the lung with progression of disease on 2 prior combinations of chemotherapy. She has received a third combination of chemotherapy using BCNU 100 mg and Cytoxan 1000 mg given September 25, 2016. The atelectasis of the right lung is worsening. She has a white out of the right lung today. I do not see any point in repeating chemotherapy since she has progressed on third line. A chest x-ray done yesterday demonstrated reexpansion of her right lung. I do not plan additional chemotherapy at this point. We will do radiation therapy and then I will recommend placing her on hospice. Leukopenia: Lab work yesterday includes a white cell count of 17,100 with an absolute neutrophil count of 15,300 Platelet count 190,000 Creatinine 0.8 Anemia:Hemoglobin up to 10.8 yesterday COPD: She has severe COPD that would have precluded surgery even if she were a candidate, which she was not. Her varying atelectasis is affecting her dyspnea. Her dyspnea is aggravated by the fact that she becomes extremely anxious. Breath sounds are absent in the right lung and her chest x-ray is worse. This is a very difficult and complicated case. We will recheck chest x- ray in the morning. Hypokalemia: .Potassium normal at 4.7 yesterday. She is on 20 mEq of potassium chloride p.o. daily. We will continue checking CBCs and comprehensive metabolic profiles. She is afebrile. Continue radiation therapy. The postobstructive pneumonia is better. We are starting physical therapy and we need to work on discharge at some point since the main thing the patient is receiving his radiation therapy. Once again , I do not plan to pursue any further chemotherapy. Exam - Constitutional Vitals: Period Temp Pulse Resp BP Sys/Carvajal Pulse Ox Last 24 Hr 96.6 F-98.9 F 71-110 18-25 91-111/52-71 87-99 Results - Labs CBC & BMP: 10/14/16 04:00 10/14/16 04:00 Specialty Discharge - Follow Up or Referrals
[2016-10-15] MEDS: MORPHINE 2 MG/1 ML SYRINGE IV PRN ×2 (08:03→12:44)
[2016-10-15] MEDS: ALPRAZolam 0.25 MG TABLET PO PRN ×3 (08:07→18:16)
[2016-10-15] MEDS: ASPIRIN EC 81 MG TABLET PO SCH (09:26)
[2016-10-15] MEDS: FUROSEMIDE 40 MG TABLET PO SCH (09:27)
[2016-10-15] MEDS: predniSONE 20 MG TABLET PO SCH (09:27)
[2016-10-15] MEDS: LEVOTHYROXINE 50 MCG TABLET PO SCH (09:27)
[2016-10-15] MEDS: LOSARTAN 25 MG TABLET PO SCH (09:28)
[2016-10-15] MEDS: METOPROLOL TARTRATE 50 MG TABLET PO SCH ×2 (09:28→18:16)
[2016-10-15] MEDS: MAGNESIUM CHLORIDE 64 MG TABLET PO SCH (09:29)
[2016-10-15] MEDS: POTASSIUM CHLORIDE 20 MEQ TABLET PO SCH (09:30)
[2016-10-15] MEDS: HYDROcodone/CHLORPHENIRAMINE ER 5 ML UDCUP PO SCH ×2 (09:31→21:32)
[2016-10-15] MEDS: GRANISETRON 1 MG/1 ML VIAL IV SCH (09:32)
--- NOTE | 2016-10-15 09:59 | Pulmonology Progress Note ---
Pulmonary - PN: Subj Interval history: 10/01/2016 this 66-year-old black female has advanced small cell lung cancer. I saw her yesterday and discussed the case with Dr. Reddy. I dictated a note but it did not get placed in the chart. We discussed radiation and she is going to have it. This note is dictated 10/02/16. 10/03/2016 patient is not dyspneic at rest. Tolerating chemotherapy. Starting to cough up some phlegm. Chest x-ray has been ordered for today. Radiation oncology consult is still pending. Hopefully they can get started on radiation soon. 10/04/2016 patient having episodes of dyspnea requiring extra oxygen at night. We need to proceed with radiation as soon as we can. She has obstruction of right main bronchus with small cell lung cancer. 10/07/2016 patient has done well the last round of chemotherapy. We are still awaiting word from radiation oncology. She needs to start as soon as possible in my opinion. 10/08/2016 still no word on radiation oncology. Patient O2 sat 90% on 2 L. Decreased breath sounds on right side. We need to proceed with radiation 10-09-16 still awaiting radiation oncology. Each x-ray shows some atelectasis in different portions of the right lung. She is coughing up some phlegm and I think she has some mucus plugging. The tumor is very friable and there is really nothing I can do with the bronchoscope that would not cause serious bleeding. 10/10/2016 patient started radiation yesterday. To get second round today. No immediate problems. Breathing is better. Not coughing up blood. I think patient is where she could be discharged. She has oxygen at home. Would keep her on low-dose prednisone. 10/11/16 66-year-old lady with small cell lung cancer with obstruction of right lung and tumor extending up into the trachea.. Friable tumor that bled with just touching with bronchoscope. She has had a round of third line chemotherapy. She has started radiation therapy this week. Has fairly extensive obstruction on the right side but there is some aeration on x-ray. She is only on 10 mg daily of prednisone. 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 Symptoms are stable. Prognosis is poor. 10/14/2016 patient is feeling better. Says the phlegm is looser. Chest x-ray today is clearly better. She is continuing with radiation therapy. Generally weak. From my standpoint, if she has enough assistance at home, she could be discharged and brought back and forth for radiation. She is on 20 mg daily of prednisone. Not on antibiotics at present. Has oxygen at home. 10/15/2016 patient tolerating radiation. Yesterday's chest x-ray was better. Agree with plans for swing bed for physical therapy and to continue with radiation. Exam (Progress Note) - Constitutional Vitals: Period Temp Pulse Resp BP Sys/Carvajal Pulse Ox Last 24 Hr 96.6 F-98.9 F 66-109 18-25 91-115/52-71 87-99 Exam: Patient's alert oriented vital signs normal pulse is about 80 and regular. Pupils react to light. Throat is clear. Neck supple no bruits. Chest reveals decreased breath sounds on the right, but they are present. Left lung is clear. Heart normal rate and rhythm no murmurs. Abdomen soft nontender no masses. Extremities no clubbing cyanosis or edema. Calves nontender. Results - Labs CBC & BMP: 10/14/16 04:00 10/14/16 04:00 Lab Results: I have reviewed the past 24 hour labs Assessment and Plan (1) Obstruction right upper lobe Status: Acute Assessment and plan: Plan for bronchoscopy outpatient this morning. Please see dictation from that obstruction of right mainstem bronchus at this point. Consider radiation. External beem versus brachytherapy. 10/01/2016 right lung is obstructed. Needs radiation. Discussed case with Dr. Reddy. 10/02/2016 appears to have total right lung obstruction at present. To start radiation soon. Tumor is very friable and would be difficult to treat locally. 10/03/2016 has total obstruction of right lung. Follow-up x-ray pending. Hopefully can get started on radiation soon. The tumor extends up the right wall of the trachea about 5 cm. 10/04/2016 yesterday's x-ray looks better she is aerating the right middle and lower lobes. She is coughed up some thick secretions from there. We need to proceed with radiation. She has compromised airway. Radiation needs to go from about 5 cm above the los to just distal to the division of right middle and lower lobes. 10/07/2016 this is from progressive small cell lung cancer. The tumor was extremely friable. She could have hemorrhage anytime. She could have further obstruction anytime. We need to proceed with radiation. 10/08/2016 need to proceed with radiation 10/09/16 there is some obstruction involving the lower lobe as well. Need to proceed with radiation. 10/10/2016 patient has had chemotherapy. Started radiation therapy yesterday. Getting second dose today. Can be discharged from pulmonary standpoint. 10/11/2016 small cell lung cancer with obstruction. Continuing radiation. Increase prednisone to 20 mg daily. 10/14/2016 right upper lobe continues to be atelectatic on x-ray. However the remainder of the right lung is better aerated. Keep on 20 mg daily of prednisone. Continuing radiation, external Beem. Her tumor is very friable. Complete to clear secretions would not be a good idea. She is doing a pretty good job cleaning them on her own. 10/15/2016 continuing radiation. Current Visit: Yes (2) metastatic small cell lung cancer Status: Acute Assessment and plan: Has known small cell lung cancer right lung with widespread metastasis. 09/30/2016 patient getting third line chemotherapy at this point. 10/01/2016 patient getting chemotherapy 10/02/2016 continuing with chemotherapy. 10/03/2016 patient has been receiving chemotherapy. 10/07/2016 has tolerated her last chemotherapy 10/10/2016 now getting radiation therapy for obstruction of right lung with metastatic lung cancer. 10/14/2016 continuing with radiation. She has had 3 different combinations of chemotherapy. 10/15/2016 apparently normal plans for chemotherapy. Hopefully radiation will take care of the obstruction for a good while. Current Visit: No (3) COPD (chronic obstructive pulmonary disease) Status: Chronic Assessment and plan: Chronic obstructive pulmonary disease treated with bronchodilators. She relates that one of the inhalers that we have prescribed she was not able to purchase. 09/30/2016 nasal oxygen and bronchodilators are helping. Oxygen saturation 96% on 2 L 10/01/2016 adequately oxygenated with current therapy. 10/02/2016 nasal oxygen and bronchodilators. 10/03/2016 no active bronchospasm 10/04/2016 we will put on duo nebs 4 times a day plus as needed albuterol. Continuing oxygen. 10/07/2016 continuing bronchodilators and oxygen. 10/08/16 no active bronchospasm. Tapering steroids 10-09-16 no active bronchospasm. Continue to taper steroids 10/10/2016 would keep on low-dose prednisone about 10 mg daily. Continue bronchodilators. She has home oxygen. She has bronchodilators. Can be discharge as needed from my standpoint 10/11/2016 mild cough. Not really wheezing at present. 10/14/2016 no bronchospasm. Continuing oxygen and bronchodilators. 10/15/2016 continuing oral prednisone plus bronchodilators and nasal oxygen. Keep oxygen saturation at 92% or above. Current Visit: No Specialty Discharge - Follow Up or Referrals
[2016-10-15] MEDS ORDERED: HEPARIN LOCK FLUSH 500 UNIT/5 ML SYRINGE IV ONE (12:40)
[2016-10-15] MEDS: DOXEPIN 25 MG CAPSULE PO SCH (21:35)
[2016-10-16] MEDS: ALBUTEROL/IPRATROPIUM 3 ML NEB RESP TX SCH ×4 (00:16→20:08)
[2016-10-16] MEDS: ONDANSETRON 4 MG TABLET PO SCH ×4 (02:39→20:32)
[2016-10-16 04:16] LABS: Basophils % 0.1 % (0.0-0.8); Eosinophils % 0.1 % (0.00-10.9); Hematocrit 29.5 VOL% (35.7-47.0); Hemoglobin 9.6 GM/DL (12.0-16.0); Immature Granulocytes % 1.1 %; Immature Granulocytes Absolute 0.16 #; Lymphocytes # 0.3 10*3/uL (1.4-4.0); Lymphocytes % 1.8 % (21.3-54.2); Mean Corpuscular HGB Conc 32.5 GM/DL (32-36); Mean Corpuscular Hemoglobin 31 PG (27-34); Mean Corpuscular Volume 96.4 FL (87-102); Monocytes # 0.7 10*3/uL (0.11-0.8); Monocytes % 5.3 % (1.7-12.7); Neutrophils # 12.8 10*3/uL (1.4-7.4); Neutrophils % 91.6 % (38.7-73.9); Platelet Count 187 T/CUMM (130-400); Red Blood Count 3.06 MC/CUMM (3.8-5.5); Red Cell Distribution Width 14.3 % (9.3-17.3)
[2016-10-16 04:37] LABS: Albumin 2.5 G/DL (3.4-5.0); Bilirubin,Total 1.3 MG/DL (0.2-1.0); Calcium 9.4 MG/DL (8.5-10.1); Osmolality,Calculated 280.5 MOS/KG (273-304); Potassium 4.8 MMOL/L (3.5-5.1); Total Protein 6.7 G/DL (6.4-8.3)
[2016-10-16 04:48] LABS: Lymphocytes 2 % (20-55); Nucleated Red Blood Cells 1 (0-5); Segmented Neutrophils 93 % (50-85)
[2016-10-16 04:49] LABS: Platelet Estimate Normal; Total Cells Counted 100
[2016-10-16] MEDS: LEVOTHYROXINE 50 MCG TABLET PO SCH (08:26)
[2016-10-16] MEDS: predniSONE 20 MG TABLET PO SCH (08:26)
[2016-10-16] MEDS: LOSARTAN 25 MG TABLET PO SCH (08:26)
[2016-10-16] MEDS: FUROSEMIDE 40 MG TABLET PO SCH (08:26)
[2016-10-16] MEDS: ASPIRIN EC 81 MG TABLET PO SCH (08:26)
[2016-10-16] MEDS: MAGNESIUM CHLORIDE 64 MG TABLET PO SCH (08:26)
[2016-10-16] MEDS: METOPROLOL TARTRATE 50 MG TABLET PO SCH ×2 (08:26→16:53)
[2016-10-16] MEDS: POTASSIUM CHLORIDE 20 MEQ TABLET PO SCH (08:27)
--- NOTE | 2016-10-16 08:28 | Oncology Progress Note ---
Oncology Subjective PN Interval history: Small cell lung cancer with obstructive pneumonia: Ms. Pearson remains hospitalized with small cell carcinoma the lung with progression of disease on 2 prior combinations of chemotherapy. She has received a third combination of chemotherapy using BCNU 100 mg and Cytoxan 1000 mg given September 25, 2016. The atelectasis of the right lung is worsening. She has a white out of the right lung today. I do not see any point in repeating chemotherapy since she has progressed on third line. A chest x-ray done yesterday demonstrated reexpansion of her right lung. I do not plan additional chemotherapy at this point. We will do radiation therapy and then I will recommend placing her on hospice. We are attempting to get her to a swing bed and he had continue radiation therapy. Leukopenia: Lab work yesterday includes a white cell count of 14,000 with an absolute neutrophil count of 15,300 Platelet count 187,000 Creatinine 0.8 Anemia:Hemoglobin up to 9.6 today. COPD: She has severe COPD that would have precluded surgery even if she were a candidate, which she was not. Her varying atelectasis is affecting her dyspnea. Her dyspnea is aggravated by the fact that she becomes extremely anxious. Breath sounds are absent in the right lung and her chest x-ray is worse. This is a very difficult and complicated case. We will recheck chest x- ray in the morning. She remains tachypnea can when she gets nervous she is more dyspneic. Exam - Constitutional Vitals: Period Temp Pulse Resp BP Sys/Carvajal Pulse Ox Last 24 Hr 97.5 F-98.4 F 69-102 14-22 93-111/55-67 90-99 Results - Labs CBC & BMP: 10/16/16 03:20 10/16/16 03:20 Specialty Discharge - Follow Up or Referrals
[2016-10-16] MEDS: GRANISETRON 1 MG/1 ML VIAL IV SCH (08:29)
[2016-10-16] MEDS: HYDROcodone/CHLORPHENIRAMINE ER 5 ML UDCUP PO SCH ×2 (08:31→20:33)
--- NOTE | 2016-10-16 09:09 | Pulmonology Progress Note ---
Pulmonary - PN: Subj Interval history: 10/01/2016 this 66-year-old black female has advanced small cell lung cancer. I saw her yesterday and discussed the case with Dr. Reddy. I dictated a note but it did not get placed in the chart. We discussed radiation and she is going to have it. This note is dictated 10/02/16. 10/03/2016 patient is not dyspneic at rest. Tolerating chemotherapy. Starting to cough up some phlegm. Chest x-ray has been ordered for today. Radiation oncology consult is still pending. Hopefully they can get started on radiation soon. 10/04/2016 patient having episodes of dyspnea requiring extra oxygen at night. We need to proceed with radiation as soon as we can. She has obstruction of right main bronchus with small cell lung cancer. 10/07/2016 patient has done well the last round of chemotherapy. We are still awaiting word from radiation oncology. She needs to start as soon as possible in my opinion. 10/08/2016 still no word on radiation oncology. Patient O2 sat 90% on 2 L. Decreased breath sounds on right side. We need to proceed with radiation 10-09-16 still awaiting radiation oncology. Each x-ray shows some atelectasis in different portions of the right lung. She is coughing up some phlegm and I think she has some mucus plugging. The tumor is very friable and there is really nothing I can do with the bronchoscope that would not cause serious bleeding. 10/10/2016 patient started radiation yesterday. To get second round today. No immediate problems. Breathing is better. Not coughing up blood. I think patient is where she could be discharged. She has oxygen at home. Would keep her on low-dose prednisone. 10/11/16 66-year-old lady with small cell lung cancer with obstruction of right lung and tumor extending up into the trachea.. Friable tumor that bled with just touching with bronchoscope. She has had a round of third line chemotherapy. She has started radiation therapy this week. Has fairly extensive obstruction on the right side but there is some aeration on x-ray. She is only on 10 mg daily of prednisone. 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 Symptoms are stable. Prognosis is poor. 10/14/2016 patient is feeling better. Says the phlegm is looser. Chest x-ray today is clearly better. She is continuing with radiation therapy. Generally weak. From my standpoint, if she has enough assistance at home, she could be discharged and brought back and forth for radiation. She is on 20 mg daily of prednisone. Not on antibiotics at present. Has oxygen at home. 10/15/2016 patient tolerating radiation. Yesterday's chest x-ray was better. Agree with plans for swing bed for physical therapy and to continue with radiation. 10/16/2016 patient continues to do well with radiation. However she gets short of breath just taking 2-3 steps to the bathroom. Physical therapy starting to work with her. Certainly agree with plans for swing bed rather than discharge home. Exam (Progress Note) - Constitutional Vitals: Period Temp Pulse Resp BP Sys/Carvajal Pulse Ox Last 24 Hr 97.5 F-98.4 F 69-102 14-22 93-111/55-67 90-99 Exam: Patient's alert oriented vital signs normal pulse is about 90 and regular. Pupils react to light. Throat is clear. Neck supple no bruits. Chest reveals decreased breath sounds on the right, but they are present. Left lung is clear. Heart normal rate and rhythm no murmurs. Abdomen soft nontender no masses. Extremities no clubbing cyanosis or edema. Calves nontender. Results - Labs CBC & BMP: 10/16/16 03:20 10/16/16 03:20 Lab Results: I have reviewed the past 24 hour labs Assessment and Plan (1) Obstruction right upper lobe Status: Acute Assessment and plan: Plan for bronchoscopy outpatient this morning. Please see dictation from that obstruction of right mainstem bronchus at this point. Consider radiation. External beem versus brachytherapy. 10/01/2016 right lung is obstructed. Needs radiation. Discussed case with Dr. Reddy. 10/02/2016 appears to have total right lung obstruction at present. To start radiation soon. Tumor is very friable and would be difficult to treat locally. 10/03/2016 has total obstruction of right lung. Follow-up x-ray pending. Hopefully can get started on radiation soon. The tumor extends up the right wall of the trachea about 5 cm. 10/04/2016 yesterday's x-ray looks better she is aerating the right middle and lower lobes. She is coughed up some thick secretions from there. We need to proceed with radiation. She has compromised airway. Radiation needs to go from about 5 cm above the los to just distal to the division of right middle and lower lobes. 10/07/2016 this is from progressive small cell lung cancer. The tumor was extremely friable. She could have hemorrhage anytime. She could have further obstruction anytime. We need to proceed with radiation. 10/08/2016 need to proceed with radiation 10/09/16 there is some obstruction involving the lower lobe as well. Need to proceed with radiation. 10/10/2016 patient has had chemotherapy. Started radiation therapy yesterday. Getting second dose today. Can be discharged from pulmonary standpoint. 10/11/2016 small cell lung cancer with obstruction. Continuing radiation. Increase prednisone to 20 mg daily. 10/14/2016 right upper lobe continues to be atelectatic on x-ray. However the remainder of the right lung is better aerated. Keep on 20 mg daily of prednisone. Continuing radiation, external Beem. Her tumor is very friable. Complete to clear secretions would not be a good idea. She is doing a pretty good job cleaning them on her own. 10/15/2016 continuing radiation. 10/16/2016 continuing external beam radiation Current Visit: Yes (2) metastatic small cell lung cancer Status: Acute Assessment and plan: Has known small cell lung cancer right lung with widespread metastasis. 09/30/2016 patient getting third line chemotherapy at this point. 10/01/2016 patient getting chemotherapy 10/02/2016 continuing with chemotherapy. 10/03/2016 patient has been receiving chemotherapy. 10/07/2016 has tolerated her last chemotherapy 10/10/2016 now getting radiation therapy for obstruction of right lung with metastatic lung cancer. 10/14/2016 continuing with radiation. She has had 3 different combinations of chemotherapy. 10/15/2016 apparently normal plans for chemotherapy. Hopefully radiation will take care of the obstruction for a good while. 10/16/2016 has been through 3 different types of chemotherapy. Now getting radiation for obstruction of right main bronchus and right upper lobe bronchi Current Visit: No (3) COPD (chronic obstructive pulmonary disease) Status: Chronic Assessment and plan: Chronic obstructive pulmonary disease treated with bronchodilators. She relates that one of the inhalers that we have prescribed she was not able to purchase. 09/30/2016 nasal oxygen and bronchodilators are helping. Oxygen saturation 96% on 2 L 10/01/2016 adequately oxygenated with current therapy. 10/02/2016 nasal oxygen and bronchodilators. 10/03/2016 no active bronchospasm 10/04/2016 we will put on duo nebs 4 times a day plus as needed albuterol. Continuing oxygen. 10/07/2016 continuing bronchodilators and oxygen. 10/08/16 no active bronchospasm. Tapering steroids 10-09-16 no active bronchospasm. Continue to taper steroids 10/10/2016 would keep on low-dose prednisone about 10 mg daily. Continue bronchodilators. She has home oxygen. She has bronchodilators. Can be discharge as needed from my standpoint 10/11/2016 mild cough. Not really wheezing at present. 10/14/2016 no bronchospasm. Continuing oxygen and bronchodilators. 10/15/2016 continuing oral prednisone plus bronchodilators and nasal oxygen. Keep oxygen saturation at 92% or above. 10/16/16 no active bronchospasm. Continuing nasal oxygen and bronchodilators. On low-dose prednisone. Current Visit: No Specialty Discharge - Follow Up or Referrals
[2016-10-16] MEDS: MORPHINE 2 MG/1 ML SYRINGE IV PRN (14:19)
[2016-10-16] MEDS: DOXEPIN 25 MG CAPSULE PO SCH (20:32)
[2016-10-17] MEDS: ALBUTEROL/IPRATROPIUM 3 ML NEB RESP TX SCH ×2 (01:17→07:06)
[2016-10-17] MEDS: ONDANSETRON 4 MG TABLET PO SCH ×2 (03:32→08:42)
[2016-10-17] MEDS: ALPRAZolam 0.25 MG TABLET PO PRN ×2 (04:07→12:03)
--- NOTE | 2016-10-17 07:41 | Oncology Progress Note ---
Oncology Subjective PN Interval history: Ms. Pearson appears to be responding to radiation therapy for her small cell carcinoma of the lung. She is about to be transferred to swing bed today to continue radiation. She has quite a few more doses to go. She is extremely weak, frail, anxious and dependent on supplemental oxygen. Dr. Martinez is assisted in managing her severe COPD and she is clearly better than she was on admission. I will not alter her current medications on transfer. I will be available to see her in consultation but I really do not plan further chemotherapy. I have explained this to her and she is not in favor of further chemotherapy at this time. She just wants assurance that the radiation will work and since it is working, I have reassured her. Diagnoses: Small cell lung cancer with obstructive pneumonia: Ms. Pearson has small cell carcinoma the lung with progression of disease on 3 prior combinations of chemotherapy. She has received a third combination of chemotherapy using BCNU 100 mg and Cytoxan 1000 mg given September 25, 2016. The atelectasis of the right lung worsened and I do not plan additional chemotherapy.. She had a white out of the right lung but it has opened back up with radiation.. I do not see any point in repeating chemotherapy since she has progressed on third line. Leukopenia: Her leukopenia has resolved presently. Anemia: She has had recurrent episodes of anemia requiring blood transfusion. COPD: She has severe COPD that would have precluded surgery even if she were a candidate, which she was not. Her varying atelectasis is affecting her dyspnea. Her dyspnea is aggravated by the fact that she becomes extremely anxious. Breath sounds are absent in the right lung and her chest x-ray is worse. This is a very difficult and complicated case. We will recheck chest x- ray in the morning. She remains tachypnea can when she gets nervous she is more dyspneic. I will not set up a follow-up office visit at this point. I do not have much else to offer her and I do not feel that having her come to the office and wait for an appointment to see me is necessary at this time. Exam - Constitutional Vitals: Period Temp Pulse Resp BP Sys/Carvajal Pulse Ox Last 24 Hr 97.3 F-98.4 F 67-106 16-24 97-108/56-73 91-100 Results - Labs CBC & BMP: 10/16/16 03:20 10/16/16 03:20 Specialty Discharge - Follow Up or Referrals
--- NOTE | 2016-10-17 08:18 | Pulmonology Progress Note ---
Pulmonary - PN: Subj Interval history: 10/01/2016 this 66-year-old black female has advanced small cell lung cancer. I saw her yesterday and discussed the case with Dr. Reddy. I dictated a note but it did not get placed in the chart. We discussed radiation and she is going to have it. This note is dictated 10/02/16. 10/03/2016 patient is not dyspneic at rest. Tolerating chemotherapy. Starting to cough up some phlegm. Chest x-ray has been ordered for today. Radiation oncology consult is still pending. Hopefully they can get started on radiation soon. 10/04/2016 patient having episodes of dyspnea requiring extra oxygen at night. We need to proceed with radiation as soon as we can. She has obstruction of right main bronchus with small cell lung cancer. 10/07/2016 patient has done well the last round of chemotherapy. We are still awaiting word from radiation oncology. She needs to start as soon as possible in my opinion. 10/08/2016 still no word on radiation oncology. Patient O2 sat 90% on 2 L. Decreased breath sounds on right side. We need to proceed with radiation 10-09-16 still awaiting radiation oncology. Each x-ray shows some atelectasis in different portions of the right lung. She is coughing up some phlegm and I think she has some mucus plugging. The tumor is very friable and there is really nothing I can do with the bronchoscope that would not cause serious bleeding. 10/10/2016 patient started radiation yesterday. To get second round today. No immediate problems. Breathing is better. Not coughing up blood. I think patient is where she could be discharged. She has oxygen at home. Would keep her on low-dose prednisone. 10/11/16 66-year-old lady with small cell lung cancer with obstruction of right lung and tumor extending up into the trachea.. Friable tumor that bled with just touching with bronchoscope. She has had a round of third line chemotherapy. She has started radiation therapy this week. Has fairly extensive obstruction on the right side but there is some aeration on x-ray. She is only on 10 mg daily of prednisone. 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 Symptoms are stable. Prognosis is poor. 10/14/2016 patient is feeling better. Says the phlegm is looser. Chest x-ray today is clearly better. She is continuing with radiation therapy. Generally weak. From my standpoint, if she has enough assistance at home, she could be discharged and brought back and forth for radiation. She is on 20 mg daily of prednisone. Not on antibiotics at present. Has oxygen at home. 10/15/2016 patient tolerating radiation. Yesterday's chest x-ray was better. Agree with plans for swing bed for physical therapy and to continue with radiation. 10/16/2016 patient continues to do well with radiation. However she gets short of breath just taking 2-3 steps to the bathroom. Physical therapy starting to work with her. Certainly agree with plans for swing bed rather than discharge home. 10/17/2016 patient tolerating radiation. Agree with the plan for going to the swing bed. Finished radiation there. Call if needed further. Exam (Progress Note) - Constitutional Vitals: Period Temp Pulse Resp BP Sys/Carvajal Pulse Ox Last 24 Hr 97.3 F-98.4 F 67-104 16-24 97-107/56-73 91-100 Exam: Patient's alert oriented vital signs normal pulse is about 90 and regular. Pupils react to light. Throat is clear. Neck supple no bruits. Chest reveals decreased breath sounds on the right, but they are present. Left lung is clear. Heart normal rate and rhythm no murmurs. Abdomen soft nontender no masses. Extremities no clubbing cyanosis or edema. Calves nontender. Little change from yesterday. Results - Labs CBC & BMP: 10/16/16 03:20 10/16/16 03:20 Lab Results: I have reviewed the past 24 hour labs Assessment and Plan (1) Obstruction right upper lobe Status: Acute Assessment and plan: Plan for bronchoscopy outpatient this morning. Please see dictation from that obstruction of right mainstem bronchus at this point. Consider radiation. External beem versus brachytherapy. 10/01/2016 right lung is obstructed. Needs radiation. Discussed case with Dr. Reddy. 10/02/2016 appears to have total right lung obstruction at present. To start radiation soon. Tumor is very friable and would be difficult to treat locally. 10/03/2016 has total obstruction of right lung. Follow-up x-ray pending. Hopefully can get started on radiation soon. The tumor extends up the right wall of the trachea about 5 cm. 10/04/2016 yesterday's x-ray looks better she is aerating the right middle and lower lobes. She is coughed up some thick secretions from there. We need to proceed with radiation. She has compromised airway. Radiation needs to go from about 5 cm above the los to just distal to the division of right middle and lower lobes. 10/07/2016 this is from progressive small cell lung cancer. The tumor was extremely friable. She could have hemorrhage anytime. She could have further obstruction anytime. We need to proceed with radiation. 10/08/2016 need to proceed with radiation 10/09/16 there is some obstruction involving the lower lobe as well. Need to proceed with radiation. 10/10/2016 patient has had chemotherapy. Started radiation therapy yesterday. Getting second dose today. Can be discharged from pulmonary standpoint. 10/11/2016 small cell lung cancer with obstruction. Continuing radiation. Increase prednisone to 20 mg daily. 10/14/2016 right upper lobe continues to be atelectatic on x-ray. However the remainder of the right lung is better aerated. Keep on 20 mg daily of prednisone. Continuing radiation, external Beem. Her tumor is very friable. Complete to clear secretions would not be a good idea. She is doing a pretty good job cleaning them on her own. 10/15/2016 continuing radiation. 10/16/2016 continuing external beam radiation 10/17/2016 continuing radiation for small cell lung cancer with obstruction right upper lobe Current Visit: Yes (2) metastatic small cell lung cancer Status: Acute Assessment and plan: Has known small cell lung cancer right lung with widespread metastasis. 09/30/2016 patient getting third line chemotherapy at this point. 10/01/2016 patient getting chemotherapy 10/02/2016 continuing with chemotherapy. 10/03/2016 patient has been receiving chemotherapy. 10/07/2016 has tolerated her last chemotherapy 10/10/2016 now getting radiation therapy for obstruction of right lung with metastatic lung cancer. 10/14/2016 continuing with radiation. She has had 3 different combinations of chemotherapy. 10/15/2016 apparently normal plans for chemotherapy. Hopefully radiation will take care of the obstruction for a good while. 10/16/2016 has been through 3 different types of chemotherapy. Now getting radiation for obstruction of right main bronchus and right upper lobe bronchi 10/17/2016 no further chemotherapy planned. Current Visit: No (3) COPD (chronic obstructive pulmonary disease) Status: Chronic Assessment and plan: Chronic obstructive pulmonary disease treated with bronchodilators. She relates that one of the inhalers that we have prescribed she was not able to purchase. 09/30/2016 nasal oxygen and bronchodilators are helping. Oxygen saturation 96% on 2 L 10/01/2016 adequately oxygenated with current therapy. 10/02/2016 nasal oxygen and bronchodilators. 10/03/2016 no active bronchospasm 10/04/2016 we will put on duo nebs 4 times a day plus as needed albuterol. Continuing oxygen. 10/07/2016 continuing bronchodilators and oxygen. 10/08/16 no active bronchospasm. Tapering steroids 10-09-16 no active bronchospasm. Continue to taper steroids 10/10/2016 would keep on low-dose prednisone about 10 mg daily. Continue bronchodilators. She has home oxygen. She has bronchodilators. Can be discharge as needed from my standpoint 10/11/2016 mild cough. Not really wheezing at present. 10/14/2016 no bronchospasm. Continuing oxygen and bronchodilators. 10/15/2016 continuing oral prednisone plus bronchodilators and nasal oxygen. Keep oxygen saturation at 92% or above. 10/16/16 no active bronchospasm. Continuing nasal oxygen and bronchodilators. On low-dose prednisone. 10/17/2016 no active bronchospasm. Keep on low-dose prednisone and bronchodilators as well as nasal oxygen. Could probably stop prednisone after radiation is completed. Current Visit: No Specialty Discharge - Follow Up or Referrals
[2016-10-17] MEDS: FUROSEMIDE 40 MG TABLET PO SCH (08:42)
[2016-10-17] MEDS: METOPROLOL TARTRATE 50 MG TABLET PO SCH (08:42)
[2016-10-17] MEDS: predniSONE 20 MG TABLET PO SCH (08:42)
[2016-10-17] MEDS: LEVOTHYROXINE 50 MCG TABLET PO SCH (08:42)
[2016-10-17] MEDS: MAGNESIUM CHLORIDE 64 MG TABLET PO SCH (08:42)
[2016-10-17] MEDS: LOSARTAN 25 MG TABLET PO SCH (08:42)
[2016-10-17] MEDS: ASPIRIN EC 81 MG TABLET PO SCH (08:43)
[2016-10-17] MEDS: POTASSIUM CHLORIDE 20 MEQ TABLET PO SCH (08:43)
[2016-10-17] MEDS: GRANISETRON 1 MG/1 ML VIAL IV SCH (08:43)
[2016-10-17] MEDS: HYDROcodone/CHLORPHENIRAMINE ER 5 ML UDCUP PO SCH (08:43)
--- NOTE | 2016-10-17 08:46 | Discharge Summary ---
Hospital Course - Hospital Course Hospital Course: Ms. Pearson appears to be responding to radiation therapy for her small cell carcinoma of the lung. She is about to be transferred to swing bed today to continue radiation. She has quite a few more doses to go. She is extremely weak, frail, anxious and dependent on supplemental oxygen. Dr. Martinez is assisted in managing her severe COPD and she is clearly better than she was on admission. I will not alter her current medications on transfer. I will be available to see her in consultation but I really do not plan further chemotherapy. I have explained this to her and she is not in favor of further chemotherapy at this time. She just wants assurance that the radiation will work and since it is working, I have reassured her. Diagnoses: Small cell lung cancer with obstructive pneumonia: Ms. Pearson has small cell carcinoma the lung with progression of disease on 3 prior combinations of chemotherapy. She has received a third combination of chemotherapy using BCNU 100 mg and Cytoxan 1000 mg given September 25, 2016. The atelectasis of the right lung worsened and I do not plan additional chemotherapy.. She had a white out of the right lung but it has opened back up with radiation.. I do not see any point in repeating chemotherapy since she has progressed on third line. Leukopenia: Her leukopenia has resolved presently. Anemia: She has had recurrent episodes of anemia requiring blood transfusion. COPD: She has severe COPD that would have precluded surgery even if she were a candidate, which she was not. Her varying atelectasis is affecting her dyspnea. Her dyspnea is aggravated by the fact that she becomes extremely anxious. Breath sounds are absent in the right lung and her chest x-ray is worse. This is a very difficult and complicated case. We will recheck chest x- ray in the morning. She remains tachypnea can when she gets nervous she is more dyspneic. I will not set up a follow-up office visit at this point. I do not have much else to offer her and I do not feel that having her come to the office and wait for an appointment to see me is necessary at this time. Specialty Discharge - Follow Up or Referrals Discharge Plan - Discharge Data Disposition: Swing Bed, Hos Based, [facility] Condition at Discharge: Guarded Discharge Diet: advance to your usual diet Activity: resume usual activities as tolerated Hygiene: no restrictions Weight Bearing at Discharge: weight bear as tolerated Driving: other Contact your physician if you experience:: fever over 101, Difficulty voiding, Redness or swelling, Nausea/Vomiting, Shortness of breath, Bleeding, pain uncontrolled by pain medications - Discharge Medications Continue Aspirin [Ecotrin] 81 mg PO QAM Levothyroxine Tab [Synthroid Tab] 50 mcg PO QAM NIFEdipine XL TAB [Procardia Xl] 30 mg PO QAM Magnesium Chloride [Slow Mag] 64 mg PO QAM Acetaminophen Tab [Tylenol Tab] 325 mg PO Q4H PRN #0 tablet PRN Reason: fever, headache/body aches Docusate Sodium Cap [Colace Cap] 100 mg PO BID PRN #0 capsule PRN Reason: Constipation HYDROcodone/ACETAMIN 7.5-325 [[place] 7.5-325] 1 tablet PO Q6H PRN #20 tablet PRN Reason: Pain Losartan [Cozaar] 25 mg PO QAM Doxepin HCl 25 mg PO BEDTIME Furosemide Tab [Lasix Tab] 40 mg PO QAM Ondansetron Tab [Zofran Tab] 4 mg PO Q6H predniSONE TAB [PredniSONE] 10 mg PO QAM Metoprolol Tartrate Tab [Lopressor Tab] 50 mg PO BID W/MEALS Albuterol Neb [Proventil Neb] 2.5 mg RESP TX Q4H PRN PRN Reason: Shortness Of Breath/Wheezing Albuterol Inhaler [Proventil Inhaler] 2 puff INH Q4H PRN PRN Reason: Shortness Of Breath/Wheezing - Follow Up or Referral - Forms/Instructions Instructions: Christopher Bronchoscopy or Lung Biopsy Additional Discharge Instructions: Transferred to swing bed at the [facility]. All the records from this hospital stay will be available since she is moving to the [facility] of [facility]. Exam - Constitutional Vitals: Period Temp Pulse Resp BP Sys/Carvajal Pulse Ox Last 24 Hr 97.3 F-98.4 F 67-104 16-24 97-107/56-73 91-100 Discharge Results Procedures and tests throughout hospitalization: Pending Orders 09/24/16 09:00 Cytology Request Routine DS: Provider Date of admission: 09/25/16 11:08 Primary care physician: Sharlene Humphries MD Attending physician on admission: Teodoro Reddy MD Consults: 09/30/16 07:31 Consult to Radiation Oncology [CONS] Routine Comment: Right mainstem bronchus obstruction Consulting Provider: Herb White Reason for Radiation Oncology: Radiation Therapy 10/15/16 08:36 Consult to Physical Therapy [CONS] Routine Reason for Physical Therapy: Evaluate and Treat 10/15/16 08:37 Consult to Case Mgmt/Social Srvs [CONS] Routine Reason for Case Mgmt/Social Srvs: Swingbed/SNF/Snf Consult Comment: s campus Discharging clinician: Teodoro Reddy MD
[2016-10-17] MEDS ORDERED: HEPARIN LOCK FLUSH 500 UNIT/5 ML SYRINGE IV PRN (11:58)
[2016-10-17] MEDS: MORPHINE 2 MG/1 ML SYRINGE IV PRN (12:01)
[2016-10-17 13:24] VITALS: BP 108/57
== END 2016-10-17 12:15 | disposition swing bed (61) | DRG 843 ==
LOC: N.PULM 06:41 → N.SDSINP 06:45 → N.4E 09:19 → N.ICU 09-29 09:02 → N.4E 09-30 11:42
PROVIDERS: ADMIT Specialist; ATTEND Specialist

== ENCOUNTER 2016-12-05 11:49 | Inpatient (IN) ==
[2016-12-05 12:51] LABS: Basophils % 0.4 % (0.0-0.8); Eosinophils # 0.1 10*3/uL (0.0-0.87); Eosinophils % 1.1 % (0.00-10.9); Hematocrit 35.3 VOL% (35.7-47.0); Hemoglobin 12.1 GM/DL (12.0-16.0); Immature Granulocytes % 0.7 %; Immature Granulocytes Absolute 0.04 #; Lymphocytes # 0.8 10*3/uL (1.4-4.0); Lymphocytes % 15.6 % (21.3-54.2); Mean Corpuscular HGB Conc 34.3 GM/DL (32-36); Mean Corpuscular Hemoglobin 31 PG (27-34); Mean Corpuscular Volume 89.4 FL (87-102); Mean Platelet Volume 10.4 FL (9.6-12.0); Monocytes # 0.8 10*3/uL (0.11-0.8); Monocytes % 14.8 % (1.7-12.7); Neutrophils # 3.6 10*3/uL (1.4-7.4); Neutrophils % 67.4 % (38.7-73.9); Platelet Count 174 T/CUMM (130-400); Red Blood Count 3.95 MC/CUMM (3.8-5.5); Red Cell Distribution Width 14.9 % (9.3-17.3); White Blood Count 5.4 T/CUMM (4-12)
[2016-12-05 12:56] LABS: INR 1.1; Partial Thromboplastin Time 24.1 SECS (0-40)
--- NOTE | 2016-12-05 13:00 | CT Report ---
Referring physician: Sonido Posey MD Exam: CT brain without contrast Date: 12/05/2016 Comparison: 08/30/2016 Reason: Left-sided weakness with lung cancer Technique: Axial images of the head were obtained without the use of contrast. Total DLP was 1042.60 mGy*cm. Findings: No hydrocephalus or midline shift is present. There is no evidence of an acute infarction or extracerebral collection. Multiple somewhat hyperdense masses noted with surrounding edema. One of the largest findings measures 18 mm in the right frontal lobe. It is difficult to exclude minimal peripheral hemorrhage within this finding. There is involvement of the bilateral cerebral hemispheres, periventricular location, and possibly left cerebellum. The osseous structures appear intact. Minimal mucosal thickening in the paranasal sinuses with minimal fluid in the mastoid air cells. Vascular calcifications are identified. Impression: Interval development of metastatic disease with associated cerebral edema. Minimal sinusitis with nonspecific fluid in mastoid air cells. The CT exam was performed using one or more of the following dose reduction techniques: Automated exposure control and adjustment of the mA and/or kV according to patient size. PROCEDURE INTERPRETED AT [facility] DEPARTMENT OF RADIOLOGY Final Report Signed by: Dr. Coco Perez
--- NOTE | 2016-12-05 13:05 | XRay Report ---
Portable chest Date: 12/05/2016 Clinical history: Lung cancer, weakness Comparison: 11/04/2016 Technique: Portable AP sitting chest Findings: The heart remains normal in size with stable left subclavian venous access catheter. Persistent masslike density in the right upper lobe with minimal relative elevation of the right hemidiaphragm. Persistent blunting the right costophrenic angle. Degenerative changes are noted with sclerotic findings in the proximal humeri. Impression: No significant change in the appearance on the lungs. Residual masslike density in the right upper lobe with known carcinoma of the lung. Sclerotic findings in the proximal humeri which could be related to possible metastatic disease. PROCEDURE INTERPRETED AT [facility] DEPARTMENT OF RADIOLOGY Final Report Signed by: Dr. Coco Perez
[2016-12-05 13:06] LABS: Apearance,Urine CLEAR (Clear); Bilirubin,Urine Negative (Negative); Blood, Urine Negative (Negative); Glucose,Urine (UA) Negative (Negative); Ketones,Urine 80 mg/dL (Negative); Mucus,Urine Occasional /LPF (Occasional); Nitrite,Urine Negative (Negative); Protein,Urine Negative; RBC,Urine 1 /HPF (0-4); Squamous Epithelial Cell,Urine Occasional /HPF (0-10); Urine Color Yellow (Yellow); Urine Specific Gravity 1.019 (1.001-1.035); WBC,Urine <1 /HPF (0-6)
[2016-12-05] MEDS ORDERED: DEXAMETHASONE 10 MG/1 ML VIAL IV STA (13:12)
--- NOTE | 2016-12-05 13:12 | Emergency Department Note ---
Jorge Soliman Manpreet, am scribing for, and in the presence of, Sonido Posey MD 13: 09. Taty Soliman James D, MD, personally performed the services described in this documentation, ascribed by Jonathan Patel in my presence, and it is both accurate and complete 312 . Arrival - Arrival Chief Complaint: Weakness Stated Complaint: sick-weakness. Cancer pt ED Nursing Triage Note: Decreased PO intake and generalized weakness per family onset on Friday - pt just finished taking chemo for lung CA and is a pt of Dr Reddy Mode of Arrival: Wheelchair Limitations: No Limitations Source: Patient, Old Records Reviewed, RN Notes Reviewed - History of Present Illness HPI Narrative: Pt is a 66 y/o female, with PMHx of HTN, COPD, PNA, lung CA, GERD, and thyroid disorder, who presents to the ED with CC of weakness. Pt is accompanied by her sister who states "she has not been acting herself." Pt's sister also reports the pt having urinary incontinence. Pt denies any cough or SOB. Pt states she was nauseated but is not currently. Pt also denies any back pain, dysuria, fever , or chills. Pt had labs done on 12/02/16 which were nml, according to the sister. No other pains/complaints reported to the ED. Dr. Reddy's office states that the patient's family had called his office over the last several days stating that the patient was going on hospice. Family states that this came from the suggestion of her home health nurse and that this is not really what the family or the patient wanted. Onset (ago): day(s) (12/02/16) Consistency: constant Severity: moderate Date of Last Menstrual Period: hyster Allergies/Adverse Reactions: Allergies Allergy/AdvReac Type Severity Reaction Status Date / Time Varenicline [From Chantix] Allergy Hallucinati Verified 09/23/16 12:06 ng Home Medications: Home Medications Medication Instructions Recorded Confirmed Type Aspirin [Ecotrin] 81 mg PO QAM 12/11/15 12/05/16 History NIFEdipine XL TAB [Procardia Xl] 30 mg PO QAM 12/11/15 12/05/16 History Acetaminophen Tab [Tylenol Tab] 325 mg PO Q4H PRN #0 tablet 01/30/16 12/05/16 Rx Losartan [Cozaar] 25 mg PO QAM 07/06/16 12/05/16 History predniSONE TAB [PredniSONE] 10 mg PO QAM 07/06/16 12/05/16 History Furosemide Tab [Lasix Tab] 40 mg PO QAM 08/30/16 12/05/16 History Albuterol Inhaler [Proventil 2 puff INH Q4H PRN 09/23/16 12/05/16 History Inhaler] Albuterol Neb [Proventil Neb] 2.5 mg RESP TX Q4H PRN 09/23/16 12/05/16 History Ondansetron Tab [Zofran Tab] 4 mg PO Q6H 09/24/16 12/05/16 History Megestrol Liquid [Megace Liquid] 400 mg PO BID #30 11/15/16 12/05/16 Rx HYDROcodone/ACETAMIN 7.5-325 1 tablet PO Q6H PRN 12/05/16 12/05/16 History [[place] 7.5-325] Sertraline [Zoloft] 25 mg PO QAM 12/05/16 12/05/16 History Review of System - Review of System 12 point system: reviewed and no additional remarkable complaints except as stated - Review of System Constitutional: Present: weakness Respiratory: Absent: cough, respiratory distress, wheezing Cardiovascular: Absent: chest pain Gastrointestinal: Absent: abdominal pain, nausea, vomiting, diarrhea Genitourinary female: Present: other (Urinary incontinence). Absent: dysuria Musculoskeletal: Absent: arm pain, back pain, leg pain, neck pain Neurological: Absent: headache, weakness, numbness, paresthesias Medical,Surgical,& Family Hx - Medical History Cardio: History of: Hypertension Psychological: History of: Anxiety Disorders, Depression Neurology: No history of: Seizures HEENT: History of: Eye Problem (Cataracts Both Eyes) Endocrine: History of: Thyroid Disorder Respiratory: History of: COPD, Pneumonia, Lung Cancer, Respiratory Problems Gastrointestinal: History of: Diverticulitis/ Diverticulosis, GERD, Hemorrhoids , Polyps, GI Problems (diverticulitis) Musculoskeletal: History of: Musculoskeletal Problems (osteo arthritis) No history of: Amputation Hematology: History of: Anemia Other: History of: Cancer (LUNG CANCER, LAST CHEMO 09/05/16), Miscellaneous Medical Problems (Bronch December 2015) - Surgical History Thoracic Surgeries: Patient denies;: Organ Transplant Neurologic Surgeries: Patient denies: Neurologic Surgery HEENT Surgeries: Surgical HX of: Thyroid Surgery (partial thyroidectomy) Patient denies: Tonsilectomy & Adenoidectomy Abdominal Surgeries: Surgical HX of: Abdominal Surgery, Appendectomy, Colonoscopy Reproductive Surgeries: Surgical HX of;: Gynecologic Surgery, Hysterectomy ( TOTAL) Orthopedic Surgeries: Patient denies;: Implanted Devices, Orthopedic Surgery, Spinal Surgery, Total Hip Replacement, Total Knee Replacement - Family History Family History: Reports;: Family Cancer (uncle, brother), Family Diabetes ( multiple), Family Heart Disease (multiple), Family Hypertension (multiple) Denies;: Family Stroke - Social History Smoking Status: Former smoker Frequency of Alcohol Use: None Type of Drug Use: None Exam Vital Signs: Vital Signs Temperature 97.5 F L 12/05/16 12:01 Pulse Rate 106 H 12/05/16 12:01 Respiratory Rate 20 12/05/16 12:01 Blood Pressure 141/89 12/05/16 12:01 O2 Sat by Pulse Oximetry 98 12/05/16 11:55 GENERAL: This is a chronically and acutely ill-appearing black female in no apparent distress. VITAL SIGNS: Reviewed HEENT: Head is atraumatic and normocephalic. Pupils are equal round react to light. Extraocular movements are intact. Oropharynx is benign with moist mucous membranes. NECK: Neck is soft and supple without tenderness. There are no masses. There is no lymphadenopathy. LUNGS: Lungs are clear to auscultation. Chest rises symmetrically. There is no chest wall tenderness. CV: Heart is regular rate and rhythm without murmurs rubs or gallops. ABDOMEN: Abdomen is soft, nontender to palpation. There are no abdominal abnormal masses palpated. There is no organomegaly. Bowel sounds are present and active. SKIN: Skin is warm and dry. No rash. EXTREMITIES: Patient has full range of motion without tenderness. There is no pedal edema. NEUROLOGIC: Awake alert and oriented to person. Patient has some receptive aphasia. Cranial nerves II through XII are grossly intact. Motor is 5 over 5 in all extremities bilaterally with the exception of left lower extremity which is 3-4/5. Deep tendon reflexes are 2+ and bilaterally equal. Course Course Narrative: Patient was given Decadron 20 mg IV while in the emergency department. - Consultations Consultation #1: Discussed with Dr. Reddy. Discussed with Dr. Bailey. Patient will be admitted to Dr. Bailey due to Dr. Reddy's absence. Initial orders written for him. Oncology will assume patient's care upon arrival to the [facility]. Time: 13:26 Results - Labs CBC & BMP: 12/05/16 12:20 12/05/16 12:20 Lab Results: I have reviewed the patients labs Labs: Laboratory Tests 12/05/16 12/05/16 12/05/16 12:20 12:20 12:20 WBC 5.4 RBC 3.95 Hgb 12.1 Hct 35.3 L MCV 89.4 Lymph % (Auto) 15.6 L [place] % (Auto) 14.8 H Lymph # (Auto) 0.8 L INR 1.1 PT Patient/Control Mix 12.0 Circ Anticoag PTT 24.1 Urine Color Yellow Urine Appearance Clear Urine pH 5.0 Ur Specific [place] 1.019 Urine Protein Negative Urine Glucose (UA) Negative Urine Ketones 80 Urine Blood Negative Urine Nitrate Negative Urine Bilirubin Negative Urine Urobilinogen 2.0 H Urine Leukocytes Negative Urine RBC 1 Urine WBC <1 Ur Squamous Epith Cells Occasional Urine Mucus Occasional Ur Culture Indicated? Not indicated Laboratory Tests 12/05/16 12:20 Sodium 145 Potassium 3.1 L Chloride 108 H Carbon Dioxide 25 Anion Gap 15.1 H BUN 10 Creatinine 0.60 AST 66 H ALT 110 H Globulin 3.7 H Albumin/Globulin Ratio 0.9 L - Diagnostic Findings Procedure: Chest x-ray: image reviewed by me (Minimal increased pulmonary markings bilaterally. Mediport is present with the tip in the superior vena cava.), CT: image reviewed by me (CT head: Hypodensity in the right frontal lobe. Possible metastatic disease in the right parietal lobe. CT head: Contrasted study reveals at least 15+ separate brain metastases with associated cerebral edema.) Disposition Clinical Impression: Lung cancer with brain metastases, Hypokalemia Case discussed with: patient Disposition: Still a Patient Condition: Stable
[2016-12-05 13:14] LABS: Albumin 3.4 G/DL (3.4-5.0); Bilirubin,Total 0.6 MG/DL (0.2-1.0); Calcium 9.6 MG/DL (8.5-10.1); Magnesium 2.1 MG/DL (1.8-2.4); Osmolality,Calculated 285.7 MOS/KG (273-304); Potassium 3.1 MMOL/L (3.5-5.1); Total Protein 7.1 G/DL (6.4-8.3)
[2016-12-05] MEDS ORDERED: DEXAMETHASONE 10 MG/1 ML VIAL ONE (13:18)
[2016-12-05] MEDS: SODIUM CHLORIDE 0.9% 1,000 ML IV SCH ×3 (13:40→23:58)
--- NOTE | 2016-12-05 13:45 | CT Report ---
Exam: CT brain with contrast Date: 12/05/2016 1:08 PM History: Carcinoma of the lung with abnormal noncontrast CT Comparison: None Technique: Sequential axial scans of the brain were obtained after the injection of 80 cc Omnipaque 350. Total DLP: 1012.10 Findings: The lungs remain normal in size with no midline displacement. Too numerous to count enhancing masses are noted involving bilateral cerebral and cerebellar hemispheres and periventricular lesions. The largest lesion measures 30 mm in the medial left temporal lobe. There is surrounding edema especially in the lesions in the frontal lobes. Minimal mucosal thickening in paranasal sinuses with no fluid in the mastoid air cells. Impression: Evidence of extensive metastatic disease with associated cerebral edema. Minimal sinusitis with nonspecific fluid in mastoid air cells. This CT exam was performed using water for the following dose reduction techniques: Automated exposure control, adjustment of the MA and/or KV according to patient size, or use of iterative reconstruction technique. PROCEDURE INTERPRETED AT [facility] DEPARTMENT OF RADIOLOGY Final Report Signed by: Dr. Coco Perez
[2016-12-05] MEDS ORDERED: LOPERAMIDE 2 MG CAPSULE PO PRN ×2 (15:32)
[2016-12-05] MEDS ORDERED: TEMAZEPAM 7.5 MG CAPSULE PO PRN (15:32)
[2016-12-05] MEDS ORDERED: LACTULOSE 20 GM/30 ML UDCUP PO PRN (15:32)
[2016-12-05] MEDS ORDERED: chlorproMAZINE INJ 25 MG in SODIUM CHLORIDE 0.9% 100 ML IV PRN (15:32)
[2016-12-05] MEDS ORDERED: BENZTROPINE 2 MG/2 ML AMP IV PRN (15:32)
[2016-12-05] MEDS ORDERED: ACETAMINOPHEN 325 MG TABLET PO PRN (15:32)
[2016-12-05] MEDS ORDERED: traMADol 50 MG TABLET PO PRN (15:32)
[2016-12-05] MEDS ORDERED: chlorproMAZINE INJ 50 MG in SODIUM CHLORIDE 0.9% 100 ML IV PRN (15:32)
[2016-12-05] MEDS ORDERED: chlorproMAZINE 25 MG TABLET PO PRN (15:32)
[2016-12-05] MEDS ORDERED: ALUMINUM/MAGNES/SIMETH MAX STR 30 ML UDCUP PO PRN (15:32)
[2016-12-05] MEDS ORDERED: PROMETHAZINE INJ 25 MG in SODIUM CHLORIDE 0.9% 50 ML IV PRN (15:32)
[2016-12-05] MEDS ORDERED: diphenhydrAMINE CAP 25 MG CAPSULE PO PRN (15:32)
[2016-12-05] MEDS ORDERED: guaiFENesin 200 MG/10 ML UDCUP PO PRN (15:32)
[2016-12-05] MEDS ORDERED: MYLANTA/LIDO VISC 2:1 300 ML BOTTLE SWISH/SPIT PRN (15:32)
[2016-12-05] MEDS ORDERED: MYLANTA/LIDO VISC 2:1 300 ML BOTTLE SWISH/SWAL PRN (15:32)
[2016-12-05] MEDS: DEXAMETHASONE 4 MG/1 ML VIAL IV SCH (19:36)
[2016-12-06] MEDS: DEXAMETHASONE 4 MG/1 ML VIAL IV SCH ×4 (02:23→21:06)
[2016-12-06 05:05] LABS: Hematocrit 32.9 VOL% (35.7-47.0); Hemoglobin 10.9 GM/DL (12.0-16.0); Immature Granulocytes % 1.4 %; Immature Granulocytes Absolute 0.06 #; Lymphocytes # 0.6 10*3/uL (1.4-4.0); Lymphocytes % 12.9 % (21.3-54.2); Mean Corpuscular HGB Conc 33.1 GM/DL (32-36); Mean Corpuscular Hemoglobin 30 PG (27-34); Mean Corpuscular Volume 91.1 FL (87-102); Mean Platelet Volume 10.6 FL (9.6-12.0); Monocytes # 0.2 10*3/uL (0.11-0.8); Monocytes % 3.4 % (1.7-12.7); Neutrophils # 3.6 10*3/uL (1.4-7.4); Neutrophils % 82.3 % (38.7-73.9); Platelet Count 162 T/CUMM (130-400); Red Blood Count 3.61 MC/CUMM (3.8-5.5); White Blood Count 4.4 T/CUMM (4-12)
[2016-12-06 05:20] LABS: Albumin 2.9 G/DL (3.4-5.0); Bilirubin,Total 0.6 MG/DL (0.2-1.0); Calcium 8.7 MG/DL (8.5-10.1); Osmolality,Calculated 290.4 MOS/KG (273-304); Potassium 3.7 MMOL/L (3.5-5.1); Total Protein 6.3 G/DL (6.4-8.3)
[2016-12-06] MEDS: SODIUM CHLORIDE 0.9% 1,000 ML IV SCH (06:23)
[2016-12-06] MEDS ORDERED: ACETAMINOPHEN 325 MG TABLET PO PRN (08:45)
[2016-12-06] MEDS ORDERED: HEPARIN LOCK FLUSH 500 UNIT/5 ML SYRINGE IV ONE (08:49)
--- NOTE | 2016-12-06 08:51 | Oncology History&Physical ---
Assessment and Plan (1) Cancer of right lung Status: Chronic Assessment and plan: Emphasis today will be for IV steroids and whole brain radiotherapy. The patient will receive DVT prophylaxis with Ativan as needed seizure activity or agitation. Will address CODE STATUS if family members are available in the future Current Visit: No Qualifiers: Lung location: unspecified part of lung Qualified Code(s): C34.91 - Malignant neoplasm of unspecified part of right bronchus or lung History of Present Illness Chief complaint: Mental status change History of present illness: Ms. Pearson is a 66 year old female Who is undergoing treatment for right sided lung cancer with Dr. Reddy. The patient was admitted yesterday through the emergency room with mental status changes. There were multiple greater than [address] scan consistent with brain metastasis. She had been seen in the office earlier this week. She has stigmata of radiotherapy to the right upper chest and she states that this was interrupted approximately 2 weeks ago. From what history she is able to give it does not sound as if she completed this totally though I would need records to verify this. At this time uncertain as to which type of chemotherapy she has received. The patient was alone this morning without family present on rounds. She was resting comfortably but was having some dysarthria. She is moving all extremities. I discussed her diagnosis and plan to proceed with whole brain radiotherapy later today in addition to IV Decadron. Home Medications Medication Instructions Recorded Confirmed Type Aspirin [Ecotrin] 81 mg PO QAM 12/11/15 12/05/16 History NIFEdipine XL TAB [Procardia Xl] 30 mg PO QAM 12/11/15 12/05/16 History Acetaminophen Tab [Tylenol Tab] 325 mg PO Q4H PRN #0 tablet 01/30/16 12/05/16 Rx Losartan [Cozaar] 25 mg PO QAM 07/06/16 12/05/16 History predniSONE TAB [PredniSONE] 10 mg PO QAM 07/06/16 12/05/16 History Furosemide Tab [Lasix Tab] 40 mg PO QAM 08/30/16 12/05/16 History Albuterol Inhaler [Proventil 2 puff INH Q4H PRN 09/23/16 12/05/16 History Inhaler] Albuterol Neb [Proventil Neb] 2.5 mg RESP TX Q4H PRN 09/23/16 12/05/16 History Ondansetron Tab [Zofran Tab] 4 mg PO Q6H 09/24/16 12/05/16 History Megestrol Liquid [Megace Liquid] 400 mg PO BID #30 11/15/16 12/05/16 Rx HYDROcodone/ACETAMIN 7.5-325 1 tablet PO Q6H PRN 12/05/16 12/05/16 History [[place] 7.5-325] Sertraline [Zoloft] 25 mg PO QAM 12/05/16 12/05/16 History Allergies Allergy/AdvReac Type Severity Reaction Status Date / Time Varenicline [From Chantix] Allergy Hallucinati Verified 09/23/16 12:06 ng Medical,Surgical,& Family Hx - Medical History Cardio: History of: Hypertension Psychological: History of: Anxiety Disorders, Depression Neurology: No history of: Seizures HEENT: History of: Eye Problem (Cataracts Both Eyes) Endocrine: History of: Thyroid Disorder Respiratory: History of: COPD, Pneumonia, Lung Cancer, Respiratory Problems Gastrointestinal: History of: Diverticulitis/ Diverticulosis, GERD, Hemorrhoids , Polyps, GI Problems (diverticulitis) Musculoskeletal: History of: Musculoskeletal Problems (osteo arthritis) No history of: Amputation Hematology: History of: Anemia Other: History of: Cancer (LUNG CANCER, LAST CHEMO 09/05/16), Miscellaneous Medical Problems (Bronch December 2015) - Surgical History Thoracic Surgeries: Patient denies;: Organ Transplant Neurologic Surgeries: Patient denies: Neurologic Surgery HEENT Surgeries: Surgical HX of: Thyroid Surgery (partial thyroidectomy) Patient denies: Tonsilectomy & Adenoidectomy Abdominal Surgeries: Surgical HX of: Abdominal Surgery, Appendectomy, Colonoscopy Reproductive Surgeries: Surgical HX of;: Gynecologic Surgery, Hysterectomy ( TOTAL) Orthopedic Surgeries: Patient denies;: Implanted Devices, Orthopedic Surgery, Spinal Surgery, Total Hip Replacement, Total Knee Replacement - Family History Family History: Reports;: Family Cancer (uncle, brother), Family Diabetes ( multiple), Family Heart Disease (multiple), Family Hypertension (multiple) Denies;: Family Stroke - Social History Smoking Status: Former smoker Frequency of Alcohol Use: None Type of Drug Use: None ROS unobtainable: due to mental status Exam - Constitutional Vitals: Period Temp Pulse Resp BP Sys/Carvajal Pulse Ox Last 24 Hr 97.1 F-100 F 88-106 18-22 132-176/86-95 96-100 General appearance: normal weight, no acute distress - Head Head Exam: Present: normocephalic - Eye Eye Exam: Absent: periorbital swelling, scleral icterus - ENT ENT exam: Present: normal external ear exam - Neck Neck exam: Absent: normal inspection (Radiation dermatitis right supraclavicular region), tenderness - Respiratory Respiratory exam: Present: CTAB. Absent: accessory muscle use - Cardiovascular Cardiovascular exam: Present: RRR. Absent: systolic murmur - GI/Abdominal GI/Abdominal exam: Absent: ascites, distended - Neurological Exam Neurological exam: Present: alert, altered - Psychiatric Psychiatric exam: Present: normal affect, normal mood - Skin Skin exam: Present: warm, dry Results - Labs CBC & BMP: 12/06/16 03:58 12/06/16 03:58
[2016-12-06] MEDS: ONDANSETRON 4 MG TABLET PO SCH ×3 (09:05→21:06)
[2016-12-06] MEDS: MEGESTROL 400 MG/10 ML UDCUP PO SCH ×2 (09:34→21:06)
[2016-12-06] MEDS: LOSARTAN 25 MG TABLET PO SCH (09:43)
[2016-12-06] MEDS: ASPIRIN EC 81 MG TABLET PO SCH (09:43)
[2016-12-06] MEDS: FONDAPARINUX 2.5 MG/0.5 ML SYRINGE SUBCUT SCH (09:44)
--- NOTE | 2016-12-06 10:53 | Radiation Oncology Letter ---
Radiation Oncology - Letter 66-year-old -[place] female who underwent consolidative radiotherapy or a right upper lobe small cell lung cancer with good response. Now seen with altered mental status MRI shows greater than 20 small multifocal brain metastasis. She is referred for palliative radiotherapy.
[2016-12-06] MEDS ORDERED: ALBUTEROL 2.5 MG/3 ML NEB RESP TX PRN (11:00)
--- NOTE | 2016-12-06 12:30 | CT Report ---
CT treatment planning Indication: Lung cancer. Brain metastases. Treatment planning CT for external beam radiation therapy. CT BRAIN WITHOUT CONTRAST DLP: 1947 mGy*cm. One or more of the following dose reduction techniques was used: Automated exposure control, adjustment of the mA and/or kV according the patient size, or use of iterative reconstruction techniques. Comparison: Diagnostic CT brain from yesterday. Date of admission: 12/05/2016. Technique: Axial noncontrast CT images of the brain were obtained. Findings: Innumerable metastatic lesions distributed throughout both cerebral hemispheres are again shown. No hemorrhage identified. Prominence of the lateral and third ventricles again noted. Cutaneous fiduciary markers are present. Impression: Presumed satisfactory imaging for external beam radiation therapy to the brain. PROCEDURE INTERPRETED AT [facility] DEPARTMENT OF RADIOLOGY Final Report Signed by: Teodoro Coulter M.D.
[2016-12-06] MEDS ORDERED: INFLUENZA VIRUS VACCINE 0.5 ML SYRINGE IM ONE (14:49)
[2016-12-06] MEDS: SERTRALINE 25 MG TABLET PO SCH (18:44)
[2016-12-07] MEDS: ONDANSETRON 4 MG TABLET PO SCH ×4 (02:03→20:58)
[2016-12-07] MEDS: DEXAMETHASONE 4 MG/1 ML VIAL IV SCH ×4 (02:03→20:58)
[2016-12-07] MEDS: MEGESTROL 400 MG/10 ML UDCUP PO SCH ×2 (08:52→20:58)
[2016-12-07] MEDS: LOSARTAN 25 MG TABLET PO SCH (08:52)
[2016-12-07] MEDS: ASPIRIN EC 81 MG TABLET PO SCH (08:52)
[2016-12-07] MEDS: FONDAPARINUX 2.5 MG/0.5 ML SYRINGE SUBCUT SCH (08:52)
[2016-12-07] MEDS: SERTRALINE 25 MG TABLET PO SCH (08:53)
--- NOTE | 2016-12-07 13:07 | Oncology Progress Note ---
Assessment and Plan (1) Cancer of right lung Status: Chronic Assessment and plan: Emphasis today will be for IV steroids and whole brain radiotherapy. The patient will receive DVT prophylaxis with Ativan as needed seizure activity or agitation. Will address CODE STATUS if family members are available in the future Current Visit: No Qualifiers: Lung location: unspecified part of lung Qualified Code(s): C34.91 - Malignant neoplasm of unspecified part of right bronchus or lung Oncology Subjective PN Interval history: Hospital day 3 for patient with newly discovered brain metastasis with non- small cell lung cancer status post right chest radiotherapy. Patient is resting comfortable in no distress at this time. Heart rhythm is regular. Her sister is at bedside. She did receive radiotherapy yesterday and we will resume this on Friday. I will repeat her lab work and monitor her daily blood glucoses given the high-dose Decadron exposure. Exam - Constitutional Vitals: Period Temp Pulse Resp BP Sys/Carvajal Pulse Ox Last 24 Hr 97.1 F-99.9 F 76-97 16-20 152-178/71-87 93-99 Results - Labs CBC & BMP: 12/06/16 03:58 12/06/16 03:58
[2016-12-08] MEDS: DEXAMETHASONE 4 MG/1 ML VIAL IV SCH ×4 (02:17→20:57)
[2016-12-08] MEDS: ONDANSETRON 4 MG TABLET PO SCH ×4 (02:18→20:58)
[2016-12-08 03:38] LABS: Basophils % 0.2 % (0.0-0.8); Hematocrit 32.6 VOL% (35.7-47.0); Hemoglobin 11.1 GM/DL (12.0-16.0); Immature Granulocytes % 1.9 %; Immature Granulocytes Absolute 0.09 #; Lymphocytes # 0.3 10*3/uL (1.4-4.0); Lymphocytes % 6.3 % (21.3-54.2); Mean Corpuscular Hemoglobin 30 PG (27-34); Mean Corpuscular Volume 89.3 FL (87-102); Mean Platelet Volume 11.5 FL (9.6-12.0); Monocytes # 0.4 10*3/uL (0.11-0.8); NRBC # 0.03 10*3/uL; Neutrophils % 83.6 % (38.7-73.9); Platelet Count 171 T/CUMM (130-400); Red Blood Count 3.65 MC/CUMM (3.8-5.5); Red Cell Distribution Width 15.2 % (9.3-17.3); White Blood Count 4.8 T/CUMM (4-12)
[2016-12-08 04:07] LABS: Albumin 3.1 G/DL (3.4-5.0); Bilirubin,Total 0.9 MG/DL (0.2-1.0); Magnesium 2.2 MG/DL (1.8-2.4); Osmolality,Calculated 292.6 MOS/KG (273-304); Potassium 3.3 MMOL/L (3.5-5.1); Total Protein 6.3 G/DL (6.4-8.3)
[2016-12-08] MEDS: ASPIRIN EC 81 MG TABLET PO SCH (09:02)
[2016-12-08] MEDS: LOSARTAN 25 MG TABLET PO SCH (09:02)
[2016-12-08] MEDS: SERTRALINE 25 MG TABLET PO SCH (09:02)
[2016-12-08] MEDS: MEGESTROL 400 MG/10 ML UDCUP PO SCH ×2 (09:03→20:58)
[2016-12-08] MEDS: FONDAPARINUX 2.5 MG/0.5 ML SYRINGE SUBCUT SCH (09:03)
--- NOTE | 2016-12-08 11:27 | Oncology Progress Note ---
Assessment and Plan (1) Cancer of right lung Status: Chronic Assessment and plan: Emphasis today will be for IV steroids and whole brain radiotherapy. The patient will receive DVT prophylaxis with Ativan as needed seizure activity or agitation. Will address CODE STATUS if family members are available in the future Current Visit: No Qualifiers: Lung location: unspecified part of lung Qualified Code(s): C34.91 - Malignant neoplasm of unspecified part of right bronchus or lung Oncology Subjective PN Interval history: Ms. Pearson has remained stable overnight with new onset brain metastasis related to right sided lung cancer. She has no evidence of oral candidiasis. Her affect is somewhat flattened though she is cooperative and nonagitated. She is moving all extremities. I have encouraged her to get out of bed up to the chair with possible physical therapy consult tomorrow as well as resumption of whole brain radiotherapy We discussed changing steroids to by mouth though both she and the nursing staff report some degree of pill dysphagia Exam - Constitutional Vitals: Period Temp Pulse Resp BP Sys/Carvajal Pulse Ox Last 24 Hr 98.0 F-99.6 F 86-107 16-22 133-178/76-91 94-98 Results - Labs CBC & BMP: 12/08/16 02:13 12/08/16 02:13
[2016-12-08] MEDS: POTASSIUM CHLORIDE 8 MEQ CAPSULE PO SCH (14:35)
[2016-12-09] MEDS: DEXAMETHASONE 4 MG/1 ML VIAL IV SCH ×4 (01:39→20:46)
[2016-12-09] MEDS: ONDANSETRON 4 MG TABLET PO SCH ×4 (02:31→20:46)
--- NOTE | 2016-12-09 07:37 | Oncology Progress Note ---
Oncology Subjective PN Interval history: Ms. Pearson was admitted with multiple brain metastases with abrupt change in sensorium.. She has a history of small cell carcinoma of the lung that was first diagnosed December 14, 2015. It was stage IV at the time of diagnosis. She received chemotherapy using etoposide and carboplatin which I believe she received for 6 courses. It was subsequently followed by 3 courses of Camptosar and carboplatin and then she received a third combination of BCNU and Cytoxan with the last course being given September 25, 2016. Her response to Camptosar and carboplatin and her response to BCNU and Cytoxan was less sustained, even then etoposide and carboplatin. Her main tumor is in the right mainstem bronchus and it repeatedly obstructed the right lung so that it was obvious relatively quickly when the patient began to have progression of disease with a combination of chemotherapy. She also received radiation therapy to the right lung in September and October of this year with good response. I had actually seen her in the office last week and got word back from her family that they wanted to go on hospice. She presented to the emergency room and was admitted with abrupt change in neurologic status. The last contact I had this through Dr. Humphries's office and a message was at the family had decided on hospice. It turns out that that was not accurate. The family simply wanted more visits from nursing home. Radiation therapy has been started. She is really having no headaches at all now. She is also oriented and alert presently. We will plan to continue radiation therapy in place at least until the end of the week to make sure she stabilized. On physical examination she is currently oriented and alert although acutely ill. Eyes: Normal lids and conjunctivae. ENT: Her oral mucosa and pharynx are normal. Her hearing is normal. Neck: Her trachea is midline and she has no neck masses. Cardiovascular: Her heart rhythm is regular without murmur, gallop or rub. There is no jugular venous distention. Lungs: Breath sounds are coarse throughout without rubs, rales or rhonchi. There is a prolonged expiratory phase of respiration. The chest moves symmetrically. Abdomen: No masses or ascites or tenderness and no organomegaly. Musculoskeletal: She is generally weak and has arthritic changes in her hands. Neurologic: Cranial nerves II through XII are intact. The no focal neurologic deficits. Lab work yesterday included a white cell count of 4800 with a hemoglobin of 11.1 and a platelet count of 171,000. Serum magnesium was 2.2. Alkaline phosphatase was 86 but the AST was elevated at 109 with an elevated ALT of 202. Abrupt change in neurologic status due to brain metastases from small cell lung cancer: Small cell lung cancer with obstructive pneumonia: Leukopenia: Anemia: COPD: Hypokalemia: Exam - Constitutional Vitals: Period Temp Pulse Resp BP Sys/Carvajal Pulse Ox Last 24 Hr 98 F-98.7 F 86-98 16-20 121-140/70-86 94-99 Results - Labs CBC & BMP: 12/08/16 02:13 12/08/16 02:13
[2016-12-09] MEDS: LOSARTAN 25 MG TABLET PO SCH (08:46)
[2016-12-09] MEDS: SERTRALINE 25 MG TABLET PO SCH (08:46)
[2016-12-09] MEDS: MEGESTROL 400 MG/10 ML UDCUP PO SCH ×2 (08:46→20:46)
[2016-12-09] MEDS: ASPIRIN EC 81 MG TABLET PO SCH (08:46)
[2016-12-09] MEDS: POTASSIUM CHLORIDE 8 MEQ CAPSULE PO SCH (08:46)
[2016-12-09] MEDS: ALPRAZolam 0.25 MG TABLET PO PRN (12:38)
[2016-12-10] MEDS: DEXAMETHASONE 4 MG/1 ML VIAL IV SCH ×4 (02:56→20:41)
[2016-12-10] MEDS: ONDANSETRON 4 MG TABLET PO SCH ×4 (03:00→20:42)
[2016-12-10 07:09] LABS: Basophils % 0.2 % (0.0-0.8); Hematocrit 32.7 VOL% (35.7-47.0); Hemoglobin 10.9 GM/DL (12.0-16.0); Immature Granulocytes % 1.8 %; Immature Granulocytes Absolute 0.09 #; Lymphocytes # 0.2 10*3/uL (1.4-4.0); Lymphocytes % 3.6 % (21.3-54.2); Mean Corpuscular HGB Conc 33.3 GM/DL (32-36); Mean Corpuscular Hemoglobin 30 PG (27-34); Mean Corpuscular Volume 91.3 FL (87-102); Mean Platelet Volume 11.1 FL (9.6-12.0); Monocytes # 0.4 10*3/uL (0.11-0.8); Monocytes % 6.9 % (1.7-12.7); NRBC # 0.05 10*3/uL; Neutrophils # 4.4 10*3/uL (1.4-7.4); Neutrophils % 87.5 % (38.7-73.9); Platelet Count 133 T/CUMM (130-400); Red Blood Count 3.58 MC/CUMM (3.8-5.5); White Blood Count 5.1 T/CUMM (4-12)
[2016-12-10 07:33] LABS: Band Neutrophils 10 % (0-10); Hypochromasia Slight; Lymphocytes 1 % (20-55); Microcytosis 1+; Platelet Estimate Decreased; Segmented Neutrophils 86 % (50-85); Total Cells Counted 100
[2016-12-10 07:57] LABS: Bilirubin,Total 0.5 MG/DL (0.2-1.0); Calcium 9.1 MG/DL (8.5-10.1); Magnesium 2.4 MG/DL (1.8-2.4); Osmolality,Calculated 294.6 MOS/KG (273-304); Total Protein 6.1 G/DL (6.4-8.3)
--- NOTE | 2016-12-10 08:04 | Oncology Progress Note ---
Oncology Subjective PN Interval history: Ms. 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 She has had radiation therapy to the right mainstem bronchus as well and this produced a good response in the primary tumor but she was just diagnosed as having brain metastases with abrupt change in sensorium. She has not had bendamustine yet and it has now been approved and small cell lung cancer. Ms. Pearson was admitted with multiple brain metastases with abrupt change in sensorium.. She has a history of small cell carcinoma of the lung that was first diagnosed December 14, 2015. It was stage IV at the time of diagnosis. She received chemotherapy using etoposide and carboplatin which I believe she received for 6 courses. It was subsequently followed by 3 courses of Camptosar and carboplatin and then she received a third combination of BCNU and Cytoxan with the last course being given September 25, 2016. Her response to Camptosar and carboplatin and her response to BCNU and Cytoxan was less sustained, even then etoposide and carboplatin. Her main tumor is in the right mainstem bronchus and it repeatedly obstructed the right lung so that it was obvious relatively quickly when the patient began to have progression of disease with a combination of chemotherapy. She also received radiation therapy to the right lung in September and October of this year with good response. Today she is oriented and alert. However she is extremely weak. She might be ambulatory but her oxygen tube is a short 1 which I have requested not be used. She is extremely weak. She is oriented. She is eating a modest amount of food. She has no obvious focal neurologic deficits. We are continuing radiation therapy. Exam - Constitutional Vitals: Period Temp Pulse Resp BP Sys/Carvajal Pulse Ox Last 24 Hr 96.9 F-99.3 F 81-99 16-20 119-140/59-90 91-100 Results - Labs CBC & BMP: 12/10/16 05:17 12/10/16 05:17
[2016-12-10] MEDS: SERTRALINE 25 MG TABLET PO SCH (08:46)
[2016-12-10] MEDS: POTASSIUM CHLORIDE 8 MEQ CAPSULE PO SCH (08:46)
[2016-12-10] MEDS: ASPIRIN EC 81 MG TABLET PO SCH (08:46)
[2016-12-10] MEDS: LOSARTAN 25 MG TABLET PO SCH (08:46)
[2016-12-10] MEDS: MAGNESIUM HYDROXIDE SUSP 30 ML UDCUP PO PRN ×2 (08:47→15:56)
[2016-12-10] MEDS: MEGESTROL 400 MG/10 ML UDCUP PO SCH ×2 (08:47→20:43)
[2016-12-10] MEDS: ALPRAZolam 0.25 MG TABLET PO PRN (20:48)
[2016-12-11] MEDS: ALPRAZolam 0.25 MG TABLET PO PRN (01:56)
[2016-12-11] MEDS: DEXAMETHASONE 4 MG/1 ML VIAL IV SCH ×4 (04:18→20:57)
[2016-12-11] MEDS: ONDANSETRON 4 MG TABLET PO SCH ×4 (04:19→20:52)
--- NOTE | 2016-12-11 07:55 | Oncology Progress Note ---
Oncology Subjective PN Interval history: Abrupt change in neurologic status due to brain metastases from small cell lung cancer: Radiation therapy in progress. She has no worsening of her neurologic status. She is oriented and alert has no focal neurologic deficit Small cell lung cancer with obstructive pneumonia: She has been treated previously with 3 separate combinations of chemotherapy. Bendamustine is a possibility once she completes radiation. Leukopenia: White cell count 5100 today. Continue to monitor. Anemia: Hemoglobin 10.9. Continue to monitor. COPD: She has some very faint wheezing in the right lung. I am going to check a chest x-ray today. Hypokalemia: Serum potassium 4.0 Exam - Constitutional Vitals: Period Temp Pulse Resp BP Sys/Carvajal Pulse Ox Last 24 Hr 97.0 F-99.0 F 90-103 16-20 119-175/76-83 95-100 Results - Labs CBC & BMP: 12/10/16 05:17 12/10/16 05:17
[2016-12-11] MEDS: SERTRALINE 25 MG TABLET PO SCH (09:13)
[2016-12-11] MEDS: ASPIRIN EC 81 MG TABLET PO SCH (09:13)
[2016-12-11] MEDS: MEGESTROL 400 MG/10 ML UDCUP PO SCH ×2 (09:13→20:52)
[2016-12-11] MEDS: LOSARTAN 25 MG TABLET PO SCH (09:13)
[2016-12-11] MEDS: POTASSIUM CHLORIDE 8 MEQ CAPSULE PO SCH (09:14)
[2016-12-12] MEDS: DEXAMETHASONE 4 MG/1 ML VIAL IV SCH ×4 (03:07→21:21)
[2016-12-12] MEDS: ONDANSETRON 4 MG TABLET PO SCH ×4 (04:23→21:21)
[2016-12-12 04:38] LABS: Basophils % 0.3 % (0.0-0.8); Hematocrit 35.8 VOL% (35.7-47.0); Hemoglobin 11.8 GM/DL (12.0-16.0); Immature Granulocytes % 1.9 %; Immature Granulocytes Absolute 0.15 #; Lymphocytes # 0.2 10*3/uL (1.4-4.0); Mean Corpuscular Hemoglobin 30 PG (27-34); Mean Corpuscular Volume 92.3 FL (87-102); Mean Platelet Volume 11.6 FL (9.6-12.0); Monocytes # 0.6 10*3/uL (0.11-0.8); Monocytes % 8.1 % (1.7-12.7); NRBC # 0.08 10*3/uL; Neutrophils # 6.9 10*3/uL (1.4-7.4); Neutrophils % 86.7 % (38.7-73.9); Platelet Count 154 T/CUMM (130-400); Red Blood Count 3.88 MC/CUMM (3.8-5.5); Red Cell Distribution Width 15.4 % (9.3-17.3); White Blood Count 7.9 T/CUMM (4-12)
[2016-12-12 05:02] LABS: Hypochromasia 1+; Lymphocytes 2 % (20-55); Ovalocytes Slight; Platelet Estimate Normal; Segmented Neutrophils 91 % (50-85); Total Cells Counted 100
[2016-12-12 05:03] LABS: Giant Platelets Few; Microcytosis Slight
[2016-12-12] MEDS: ONDANSETRON 4 MG/2 ML VIAL IV PRN (06:18)
--- NOTE | 2016-12-12 07:43 | Oncology Progress Note ---
Oncology Subjective PN Interval history: Abrupt change in neurologic status due to brain metastases from small cell lung cancer: Radiation therapy in progress. She has no worsening of her neurologic status. She is oriented and alert has no focal neurologic deficit. She has no headache , blurred vision or double vision. Continuing radiation therapy. Will consider discharge after tomorrow's radiation therapy to continue radiation at home. Small cell lung cancer with obstructive pneumonia: She has been treated previously with 3 separate combinations of chemotherapy. Bendamustine is a possibility once she completes radiation. She has no cough or hemoptysis or significant chest pain. Leukopenia: White cell count 9700 today. Continue to monitor. Anemia: Hemoglobin 11.8. Continue to monitor. COPD: She has some very faint wheezing in the right lung. I am going to check a chest x-ray today. Hypokalemia: Serum potassium 4.0 yesterday. I will recheck it in the morning. Platelet count 154,000 Exam - Constitutional Vitals: Period Temp Pulse Resp BP Sys/Carvajal Pulse Ox Last 24 Hr 98.2 F-99.1 F 94-110 16-22 124-134/74-91 90-97 Results - Labs CBC & BMP: 12/12/16 04:00 12/10/16 05:17
--- NOTE | 2016-12-12 09:46 | XRay Report ---
XR chest 2V Indication: Lung cancer, wheezing Comparison: 05 December 2016 Findings: The heart and mediastinum are normal in size and configuration. Left subclavian Port-A-Cath is unchanged in position. The pulmonary vascularity is normal in caliber. There is decreased right lung volume similar to previous studies. Left lung volume increased with prominent bronchial markings. No lung infiltrates, effusions, pneumothorax or other abnormality is demonstrated. Impression: Chronic lung changes. No acute process or significant change. PROCEDURE INTERPRETED AT [facility] DEPARTMENT OF RADIOLOGY Final Report Signed by: Dr. Tiburcio Lamar
[2016-12-12] MEDS: POTASSIUM CHLORIDE 8 MEQ CAPSULE PO SCH (09:47)
[2016-12-12] MEDS: LOSARTAN 25 MG TABLET PO SCH (09:48)
[2016-12-12] MEDS: MEGESTROL 400 MG/10 ML UDCUP PO SCH ×2 (09:48→21:21)
[2016-12-12] MEDS: ASPIRIN EC 81 MG TABLET PO SCH (09:48)
[2016-12-12] MEDS: SERTRALINE 25 MG TABLET PO SCH (09:48)
[2016-12-13] MEDS: DEXAMETHASONE 4 MG/1 ML VIAL IV SCH ×4 (02:30→21:13)
[2016-12-13] MEDS: ONDANSETRON 4 MG TABLET PO SCH ×4 (04:12→21:15)
[2016-12-13 05:15] LABS: Basophils % 0.2 % (0.0-0.8); Hematocrit 35.1 VOL% (35.7-47.0); Hemoglobin 11.7 GM/DL (12.0-16.0); Immature Granulocytes Absolute 0.24 #; Lymphocytes # 0.2 10*3/uL (1.4-4.0); Lymphocytes % 2.5 % (21.3-54.2); Mean Corpuscular HGB Conc 33.3 GM/DL (32-36); Mean Corpuscular Hemoglobin 31 PG (27-34); Mean Corpuscular Volume 92.4 FL (87-102); Mean Platelet Volume 11.7 FL (9.6-12.0); Monocytes # 0.6 10*3/uL (0.11-0.8); Monocytes % 7.1 % (1.7-12.7); NRBC # 0.07 10*3/uL; Neutrophils # 7.1 10*3/uL (1.4-7.4); Neutrophils % 87.2 % (38.7-73.9); Platelet Count 138 T/CUMM (130-400); Red Cell Distribution Width 15.4 % (9.3-17.3); White Blood Count 8.1 T/CUMM (4-12)
[2016-12-13 05:47] LABS: Giant Platelets Few; Hypochromasia 1+; Lymphocytes 3 % (20-55); Microcytosis Slight; Ovalocytes Slight; Platelet Estimate Normal; Segmented Neutrophils 91 % (50-85); Total Cells Counted 100
[2016-12-13 05:52] LABS: Albumin 2.9 G/DL (3.4-5.0); Bilirubin,Total 0.6 MG/DL (0.2-1.0); Calcium 9.2 MG/DL (8.5-10.1)
[2016-12-13 05:53] LABS: Osmolality,Calculated 286.1 MOS/KG (273-304); Potassium 4.8 MMOL/L (3.5-5.1)
--- NOTE | 2016-12-13 07:58 | Oncology Progress Note ---
Oncology Subjective PN Interval history: Ms. Pearson has small cell carcinoma of the lung with brain metastases. She is actually becoming more debilitated. She is on whole brain radiation and I had hoped to discharge her today but she has rising transaminases which I think is a bad sign. If they continue to rise, I will proceed with CT scans. She is extremely weak and emaciated and debilitated. She has wheezing in her right lung today but a chest x-ray done yesterday does not demonstrate any atelectasis. She had a complete white out of her right lung at the time of initial diagnosis and also it recurred after chemotherapy using 3 different drug combinations. I do not anticipate any further chemotherapy at this time although she could be a candidate for bendamustine. She needs to finish brain radiation before we will consider it. Lab work today: White cell count 8100 Hemoglobin 11.7 Platelet count 138,000 Comprehensive metabolic profile is normal except for an AST of 175 with an ALT of 455 and an alkaline phosphatase of 136. In addition, the LDH is 624. If her strength improves, I would hope to discharge her next week to continue radiation at home but her small cell lung cancer has been very aggressive and it may progress very rapidly. Exam - Constitutional Vitals: Period Temp Pulse Resp BP Sys/Carvajal Pulse Ox Last 24 Hr 96.9 F-99.6 F 61-103 16-20 118-163/70-92 94-100 Results - Labs CBC & BMP: 12/13/16 03:35 12/13/16 03:35
[2016-12-13] MEDS: POTASSIUM CHLORIDE 8 MEQ CAPSULE PO SCH (08:26)
[2016-12-13] MEDS: LOSARTAN 25 MG TABLET PO SCH (08:26)
[2016-12-13] MEDS: SERTRALINE 25 MG TABLET PO SCH (08:26)
[2016-12-13] MEDS: ASPIRIN EC 81 MG TABLET PO SCH (08:26)
[2016-12-13] MEDS: MEGESTROL 400 MG/10 ML UDCUP PO SCH ×2 (08:27→21:15)
[2016-12-14] MEDS: ONDANSETRON 4 MG TABLET PO SCH ×4 (02:42→19:51)
[2016-12-14] MEDS: DEXAMETHASONE 4 MG/1 ML VIAL IV SCH ×4 (02:42→20:48)
[2016-12-14 05:40] LABS: Basophils % 0.3 % (0.0-0.8); Hematocrit 35.4 VOL% (35.7-47.0); Hemoglobin 11.4 GM/DL (12.0-16.0); Immature Granulocytes % 3.1 %; Immature Granulocytes Absolute 0.22 #; Lymphocytes # 0.2 10*3/uL (1.4-4.0); Lymphocytes % 2.4 % (21.3-54.2); Mean Corpuscular HGB Conc 32.2 GM/DL (32-36); Mean Corpuscular Hemoglobin 30 PG (27-34); Mean Corpuscular Volume 94.4 FL (87-102); Mean Platelet Volume 11.1 FL (9.6-12.0); Monocytes # 0.5 10*3/uL (0.11-0.8); Monocytes % 6.7 % (1.7-12.7); NRBC # 0.06 10*3/uL; Neutrophils # 6.3 10*3/uL (1.4-7.4); Neutrophils % 87.5 % (38.7-73.9); Platelet Count 141 T/CUMM (130-400); Red Blood Count 3.75 MC/CUMM (3.8-5.5); Red Cell Distribution Width 15.4 % (9.3-17.3); White Blood Count 7.2 T/CUMM (4-12)
[2016-12-14 06:32] LABS: Albumin 2.9 G/DL (3.4-5.0); Bilirubin,Total 0.6 MG/DL (0.2-1.0); Calcium 8.5 MG/DL (8.5-10.1); Osmolality,Calculated 283.4 MOS/KG (273-304); Potassium 4.7 MMOL/L (3.5-5.1); Total Protein 5.8 G/DL (6.4-8.3)
[2016-12-14 06:39] LABS: Lymphocytes 4 % (20-55); Nucleated Red Blood Cells 2 (0-5); Segmented Neutrophils 91 % (50-85); Total Cells Counted 100
[2016-12-14 06:40] LABS: Hypochromasia 2+; Platelet Estimate Decreased
[2016-12-14] MEDS: ASPIRIN EC 81 MG TABLET PO SCH (10:11)
[2016-12-14] MEDS: SERTRALINE 25 MG TABLET PO SCH (10:12)
[2016-12-14] MEDS: POTASSIUM CHLORIDE 8 MEQ CAPSULE PO SCH (10:12)
[2016-12-14] MEDS: LOSARTAN 25 MG TABLET PO SCH (10:12)
[2016-12-14] MEDS: MEGESTROL 400 MG/10 ML UDCUP PO SCH ×2 (10:13→20:50)
--- NOTE | 2016-12-14 10:49 | Oncology Progress Note ---
Assessment and Plan - Time spent with patient Time spent with patient: Greater than 30 minutes (1) metastatic small cell lung cancer Status: Acute Current Visit: No (2) COPD (chronic obstructive pulmonary disease) Status: Chronic Current Visit: No (3) Oral thrush Status: Acute Current Visit: No Oncology Subjective PN Interval history: Ms. Pearson is doing well. She still feels quite weak. We will continue with her current level of care. She is not in the physical state to go home. Hopefully sometime next week she will be ready. Exam - Constitutional Vitals: Period Temp Pulse Resp BP Sys/Carvajal Pulse Ox Last 24 Hr 96.4 F-99.0 F 91-100 16-21 113-133/71-85 94-99 General appearance: normal weight, no acute distress - Head Head Exam: Present: normocephalic, atraumatic - Eye Eye Exam: Present: EOMI Pupils: Present: PERRL - ENT ENT exam: Present: normal exam, normal oropharynx - Neck Neck exam: Absent: lymphadenopathy, thyromegaly - Respiratory Respiratory exam: Present: CTAB. Absent: wheezes - Cardiovascular Cardiovascular exam: Absent: JVD, RRR, systolic murmur - GI/Abdominal GI/Abdominal exam: Present: soft. Absent: ascites, distended, mass - Neurological Exam Neurological exam: Present: alert, oriented X3 - Psychiatric Psychiatric exam: Present: normal affect, normal mood - Skin Skin exam: Present: warm, dry Results - Labs CBC & BMP: 12/14/16 05:17 12/14/16 05:17 Lab Results: I have reviewed the past 24 hour labs
[2016-12-15] MEDS: ONDANSETRON 4 MG TABLET PO SCH ×4 (02:17→21:20)
[2016-12-15] MEDS: DEXAMETHASONE 4 MG/1 ML VIAL IV SCH ×4 (02:17→21:20)
[2016-12-15 05:31] LABS: Basophils % 0.1 % (0.0-0.8); Hematocrit 34.2 VOL% (35.7-47.0); Hemoglobin 11.3 GM/DL (12.0-16.0); Immature Granulocytes % 2.7 %; Lymphocytes # 0.1 10*3/uL (1.4-4.0); Lymphocytes % 1.9 % (21.3-54.2); Mean Corpuscular Hemoglobin 31 PG (27-34); Mean Platelet Volume 11.9 FL (9.6-12.0); Monocytes # 0.5 10*3/uL (0.11-0.8); Monocytes % 6.6 % (1.7-12.7); Neutrophils # 6.6 10*3/uL (1.4-7.4); Neutrophils % 88.7 % (38.7-73.9); Platelet Count 143 T/CUMM (130-400); Red Blood Count 3.64 MC/CUMM (3.8-5.5); Red Cell Distribution Width 15.6 % (9.3-17.3); White Blood Count 7.5 T/CUMM (4-12)
[2016-12-15 06:21] LABS: Albumin 2.9 G/DL (3.4-5.0); Bilirubin,Total 0.7 MG/DL (0.2-1.0); Calcium 8.6 MG/DL (8.5-10.1); Osmolality,Calculated 288.3 MOS/KG (273-304); Total Protein 5.7 G/DL (6.4-8.3)
[2016-12-15 06:45] LABS: Metamyelocytes 2 %; Myelocytes 1 %; Nucleated Red Blood Cells 2 (0-5); Segmented Neutrophils 93 % (50-85)
[2016-12-15 06:46] LABS: Ovalocytes Few; Platelet Estimate Normal
[2016-12-15 06:48] LABS: Total Cells Counted 100
--- NOTE | 2016-12-15 08:45 | Oncology Progress Note ---
Assessment and Plan (1) metastatic small cell lung cancer Status: Acute Current Visit: No (2) COPD (chronic obstructive pulmonary disease) Status: Chronic Current Visit: No (3) Oral thrush Status: Acute Current Visit: No Oncology Subjective PN Interval history: Ms. Pearson has no new complaints today. She appears to be resting comfortably. We will continue with her current medications. I think the plan is to have her discharge this coming week. Exam - Constitutional Vitals: Period Temp Pulse Resp BP Sys/Carvajal Pulse Ox Last 24 Hr 98.5 F-100.4 F 94-103 16-20 115-121/75-85 95-100 General appearance: normal weight, no acute distress - Head Head Exam: Present: normocephalic, atraumatic - Eye Eye Exam: Present: EOMI Pupils: Present: PERRL - ENT ENT exam: Present: normal exam, normal oropharynx - Neck Neck exam: Absent: lymphadenopathy, thyromegaly - Respiratory Respiratory exam: Present: CTAB. Absent: wheezes - Cardiovascular Cardiovascular exam: Present: RRR. Absent: JVD, systolic murmur - GI/Abdominal GI/Abdominal exam: Present: soft. Absent: ascites, distended, mass - Neurological Exam Neurological exam: Present: alert, oriented X3, CN II-XII intact - Psychiatric Psychiatric exam: Present: normal affect, normal mood - Skin Skin exam: Present: warm, dry Results - Labs CBC & BMP: 12/15/16 03:56 12/15/16 03:56 Lab Results: I have reviewed the past 24 hour labs
[2016-12-15] MEDS: SERTRALINE 25 MG TABLET PO SCH (09:24)
[2016-12-15] MEDS: ASPIRIN EC 81 MG TABLET PO SCH (09:24)
[2016-12-15] MEDS: POTASSIUM CHLORIDE 8 MEQ CAPSULE PO SCH (09:24)
[2016-12-15] MEDS: MEGESTROL 400 MG/10 ML UDCUP PO SCH ×2 (09:24→21:20)
[2016-12-15] MEDS: LOSARTAN 25 MG TABLET PO SCH (09:25)
[2016-12-16] MEDS: ONDANSETRON 4 MG TABLET PO SCH ×4 (01:55→23:27)
[2016-12-16] MEDS: DEXAMETHASONE 4 MG/1 ML VIAL IV SCH ×4 (01:55→19:55)
[2016-12-16 04:32] LABS: Basophils % 0.2 % (0.0-0.8); Hematocrit 36.2 VOL% (35.7-47.0); Hemoglobin 11.9 GM/DL (12.0-16.0); Lymphocytes # 0.1 10*3/uL (1.4-4.0); Lymphocytes % 1.4 % (21.3-54.2); Mean Corpuscular HGB Conc 32.9 GM/DL (32-36); Mean Corpuscular Hemoglobin 31 PG (27-34); Mean Corpuscular Volume 93.5 FL (87-102); Mean Platelet Volume 11.5 FL (9.6-12.0); Monocytes # 0.7 10*3/uL (0.11-0.8); Monocytes % 6.4 % (1.7-12.7); NRBC # 0.19 10*3/uL; Neutrophils # 9.2 10*3/uL (1.4-7.4); Platelet Count 157 T/CUMM (130-400); Red Blood Count 3.87 MC/CUMM (3.8-5.5); Red Cell Distribution Width 15.6 % (9.3-17.3); White Blood Count 10.2 T/CUMM (4-12)
[2016-12-16 05:05] LABS: Band Neutrophils 1 % (0-10); Metamyelocytes 4 %; Segmented Neutrophils 87 % (50-85); Total Cells Counted 100
[2016-12-16 05:06] LABS: Acanthocytes Few; Eosinophils 1 % (0-10); Lymphocytes 2 % (20-55); Platelet Estimate Adequate
[2016-12-16 05:09] LABS: Bilirubin,Total 0.6 MG/DL (0.2-1.0); Calcium 8.9 MG/DL (8.5-10.1); Osmolality,Calculated 289.4 MOS/KG (273-304); Potassium 5.1 MMOL/L (3.5-5.1); Total Protein 5.9 G/DL (6.4-8.3)
[2016-12-16] MEDS ORDERED: DEXTROSE 50% 25 GM/50 ML VIAL IV PRN (07:23)
[2016-12-16] MEDS ORDERED: GLUCAGON 1 MG VIAL IM PRN (07:23)
--- NOTE | 2016-12-16 07:31 | Oncology Progress Note ---
Oncology Subjective PN Interval history: Abrupt change in neurologic status due to brain metastases from small cell lung cancer: Radiation therapy in progress. She has no worsening of her neurologic status. She is oriented and alert has no focal neurologic deficit. She has no headache , blurred vision or double vision. Continuing radiation therapy. Elevated transaminases: I have not discharged her because her transaminases have been elevated. I am going to check hepatitis studies before considering discharge. Small cell lung cancer with obstructive pneumonia: She has been treated previously with 3 separate combinations of chemotherapy. Bendamustine is a possibility once she completes radiation. She has no cough or hemoptysis or significant chest pain. Rechecking chest x-ray today. Leukopenia: White cell count 10,200 today. Continue to monitor. Diabetes Mellitus: Random glucose 210. Starting sliding scale insulin Anemia: Hemoglobin 11.9. Continue to monitor. COPD: She has some very faint wheezing in the right lung. I am going to check a chest x-ray today. Hypokalemia: Serum potassium 5.1 Exam - Constitutional Vitals: Period Temp Pulse Resp BP Sys/Carvajal Pulse Ox Last 24 Hr 97.3 F-100 F 97-111 18-20 101-120/66-83 98-100 Results - Labs CBC & BMP: 12/16/16 04:00 12/16/16 04:00
[2016-12-16] MEDS: INSULIN REGULAR 100 UNIT/ML SUBCUT SCH ×2 (08:57→16:34)
[2016-12-16] MEDS: ASPIRIN EC 81 MG TABLET PO SCH (08:57)
[2016-12-16] MEDS: MEGESTROL 400 MG/10 ML UDCUP PO SCH ×2 (08:57→21:16)
[2016-12-16] MEDS: POTASSIUM CHLORIDE 8 MEQ CAPSULE PO SCH (08:58)
[2016-12-16] MEDS: SERTRALINE 25 MG TABLET PO SCH (08:58)
[2016-12-16] MEDS: LOSARTAN 25 MG TABLET PO SCH (08:58)
[2016-12-16 09:05] LABS: Hepatitis A Ab IgM Quant 0.42 Index; Hepatitis A Ab IgM Result Negative (Negative); Hepatitis B Core IgM Quant 0.12 Index
[2016-12-16 09:06] LABS: Hepatitis B Core IgM Result Negative (Negative); Hepatitis C Virus Ab Quant 0.05 Index; Hepatitis C Virus Ab Result Negative (Negative)
--- NOTE | 2016-12-16 09:31 | XRay Report ---
History is lung cancer with atelectasis Comparison 12/12/2016 Heart is mildly enlarged. MediPort catheter is present There remains elevation right diaphragm. No confluent infiltrate is seen. Markings in the right upper chest unchanged. Patient is rotated. Minimal stranding in the right mid chest again seen. Impression: No interval change PROCEDURE INTERPRETED AT [facility] DEPARTMENT OF RADIOLOGY Final Report Signed by: Dr. Georgia Clay
[2016-12-16 09:45] LABS: Hepatitis B Surface Ag Quant 0.42 Index; Hepatitis B Surface Ag Result Negative (Negative)
[2016-12-16] MEDS: ONDANSETRON 4 MG/2 ML VIAL IV PRN (19:55)
[2016-12-17] MEDS: DEXAMETHASONE 4 MG/1 ML VIAL IV SCH ×4 (02:42→19:49)
[2016-12-17] MEDS: ONDANSETRON 4 MG TABLET PO SCH ×4 (02:44→21:13)
[2016-12-17 04:46] LABS: Basophils % 0.1 % (0.0-0.8); Hematocrit 39.1 VOL% (35.7-47.0); Immature Granulocytes % 0.9 %; Immature Granulocytes Absolute 0.09 #; Lymphocytes # 0.1 10*3/uL (1.4-4.0); Lymphocytes % 0.5 % (21.3-54.2); Mean Corpuscular HGB Conc 33.2 GM/DL (32-36); Mean Corpuscular Hemoglobin 31 PG (27-34); Mean Corpuscular Volume 92.2 FL (87-102); Mean Platelet Volume 11.5 FL (9.6-12.0); Monocytes # 0.7 10*3/uL (0.11-0.8); Monocytes % 6.8 % (1.7-12.7); NRBC # 0.32 10*3/uL; Neutrophils # 9.1 10*3/uL (1.4-7.4); Neutrophils % 91.7 % (38.7-73.9); Platelet Count 163 T/CUMM (130-400); Red Blood Count 4.24 MC/CUMM (3.8-5.5); White Blood Count 9.9 T/CUMM (4-12)
[2016-12-17 05:21] LABS: Albumin 2.9 G/DL (3.4-5.0); Calcium 9.3 MG/DL (8.5-10.1); Osmolality,Calculated 296.3 MOS/KG (273-304); Potassium 5.3 MMOL/L (3.5-5.1); Total Protein 6.1 G/DL (6.4-8.3)
[2016-12-17 06:03] LABS: Band Neutrophils 6 % (0-10); Lymphocytes 6 % (20-55); Nucleated Red Blood Cells 8 (0-5); Segmented Neutrophils 79 % (50-85); Total Cells Counted 100
[2016-12-17 06:04] LABS: Hypochromasia 1+; Microcytosis 1+; Ovalocytes Slight; Platelet Estimate Adequate; Tear Drop Cells Slight
--- NOTE | 2016-12-17 07:55 | Oncology Progress Note ---
Oncology Subjective PN Interval history: Ms. Pearson has small cell carcinoma of the lung with brain metastases. She has been treated aggressively with chemotherapy and each time the tumor has shrunk and then grown back fairly quickly. She has had radiation to the right lung now and she is currently on radiation therapy to the brain. Abrupt change in neurologic status due to brain metastases from small cell lung cancer: Radiation therapy in progress. She has no worsening of her neurologic status. She is oriented and alert has no focal neurologic deficit. She has no headache , blurred vision or double vision. Continuing radiation therapy. Elevated transaminases: I have not discharged her because her transaminases have been elevated. Transaminases are still rising. The ALT is 1011 with an AST of 256. The total bilirubin is normal. Hepatitis studies are negative. I am checking a CMV titer. I reviewed her medications and I do not think she is only dealing with because her transaminases to be elevated. I am considering checking a CT of her abdomen and pelvis I will go ahead and order it for tomorrow. I will check the chest on CT as well tomorrow since were doing it. Small cell lung cancer with obstructive pneumonia: She has been treated previously with 3 separate combinations of chemotherapy. Bendamustine is a possibility once she completes radiation. She has no cough or hemoptysis or significant chest pain. The chest x-ray done yesterday does not demonstrate any increase in lung infiltrates. The right lung is basically still clear. Leukopenia: White cell count 9,900 today. Continue to monitor. Diabetes Mellitus: Random glucose 210. Starting sliding scale insulin Anemia: Hemoglobin 13.0. Continue to monitor. COPD: She has some very faint wheezing in the right lung. I am going to check a chest x-ray today. Hypokalemia: Serum potassium 5.3 Platelet count 163,000 Exam - Constitutional Vitals: Period Temp Pulse Resp BP Sys/Carvajal Pulse Ox Last 24 Hr 97.4 F-99.6 F 110-122 16-22 97-110/64-76 95-100 Results - Labs CBC & BMP: 12/17/16 04:00 12/17/16 04:00
--- NOTE | 2016-12-17 08:57 | Pulmonology Consult Note ---
Assessment and Plan (1) Dysphagia Status: Acute Assessment and plan: She may be aspirating after observation of her in the room. Await CT of chest and abdomen. May want to have speech therapy evaluation before feeding by mouth further. Current Visit: Yes (2) metastatic small cell lung cancer Status: Acute Assessment and plan: Lung cancer with brain metastasis. Has elevated liver tests and may have metastases there as well but not proven. Her prognosis is grave. Current Visit: No (3) COPD (chronic obstructive pulmonary disease) Status: Chronic Assessment and plan: She has some mild wheezing. Treat with bronchodilators and steroids. Current Visit: No (4) Atrial fibrillation with RVR Status: Acute Assessment and plan: Heart rate is around 110. Current Visit: No History of Present Illness Chief complaint: Hypoxemia History of present illness: Ms. Pearson is a 66 year old female with small cell lung cancer. She had recurrent disease in the right upper lobe and recently had radiation therapy. She came in with decreased level of consciousness and was found to have multiple brain metastasis. She is getting brain radiation now. This morning her oxygen saturation had dropped to 85% on 2 L and I was consulted. She does have a history of COPD. Again she just recently completed radiation to her right chest. That was started back in September. She also has elevated liver tests likely has liver metastasis but that is not confirmed pending abdominal CT. She is also to get a chest CT today. I have seen this lady many times over the last couple of years since she has had severe episodes of pneumonia involving the right lung with atelectasis. At the present time her lung looks pretty clear on x-ray on that side. Home Medications Medication Instructions Recorded Confirmed Type Aspirin [Ecotrin] 81 mg PO QAM 12/11/15 12/10/16 History NIFEdipine XL TAB [Procardia Xl] 30 mg PO QAM 12/11/15 12/10/16 History Acetaminophen Tab [Tylenol Tab] 325 mg PO Q4H PRN #0 tablet 01/30/16 12/10/16 Rx Losartan [Cozaar] 25 mg PO QAM 07/06/16 12/10/16 History predniSONE TAB [PredniSONE] 10 mg PO QAM 07/06/16 12/10/16 History Furosemide Tab [Lasix Tab] 40 mg PO QAM 08/30/16 12/10/16 History Albuterol Inhaler [Proventil 2 puff INH Q4H PRN 09/23/16 12/10/16 History Inhaler] Albuterol Neb [Proventil Neb] 2.5 mg RESP TX Q4H PRN 09/23/16 12/10/16 History Ondansetron Tab [Zofran Tab] 4 mg PO Q6H 09/24/16 12/10/16 History Megestrol Liquid [Megace Liquid] 400 mg PO BID #30 11/15/16 12/10/16 Rx HYDROcodone/ACETAMIN 7.5-325 1 tablet PO Q6H PRN 12/05/16 12/10/16 History [Gambell 7.5-325] Sertraline [Zoloft] 25 mg PO QAM 12/05/16 12/10/16 History Allergies Allergy/AdvReac Type Severity Reaction Status Date / Time Varenicline [From Chantix] Allergy Hallucinati Verified 09/23/16 12:06 ng 12 point system: reviewed and no additional remarkable complaints except as stated - Constitutional Constitutional: Present: headache(s), weakness - Cardiovascular Cardiovascular: Present: diaphoresis, dyspnea, dyspnea on exertion - Respiratory Respiratory: Present: cough, dyspnea, dyspnea on exertion - Gastrointestinal Gastrointestinal: Present: dysphagia, nausea - Neurological Neurological: Present: confusion, headache(s) Exam (Pulmonay) H&P - Constitutional Vitals: Period Temp Pulse Resp BP Sys/Carvajal Pulse Ox Last 24 Hr 97.4 F-99.6 F 110-123 16-36 97-110/59-76 85-100 Exam: Patient is alert but not well oriented. She was trying to drink the contrast for her abdominal CT when I came in the room, but she was vomiting it up. Apparently has some difficulty swallowing. Vital signs normal except respiratory rate 28 and pulse 112.. O2 sat 93% on 4 L nasal byproducts. Pupils react to light. Throat is clear. Neck supple no bruits. Chest shows only minimal rhonchi. Heart rate is around 110 and regular rhythm no murmurs. Abdomen soft nontender. Liver is not palpably enlarged. Extremities no clubbing cyanosis or edema. Calves nontender. Medical,Surgical,& Family Hx - Medical History Cardio: History of: Hypertension Psychological: History of: Anxiety Disorders, Depression Neurology: No history of: Seizures HEENT: History of: Eye Problem (Cataracts Both Eyes) Endocrine: History of: Thyroid Disorder Respiratory: History of: COPD, Pneumonia, Lung Cancer, Respiratory Problems Gastrointestinal: History of: Diverticulitis/ Diverticulosis, GERD, Hemorrhoids , Polyps, GI Problems (diverticulitis) Musculoskeletal: History of: Musculoskeletal Problems (osteo arthritis) No history of: Amputation Hematology: History of: Anemia Other: History of: Cancer (LUNG CANCER, LAST CHEMO 09/05/16), Miscellaneous Medical Problems (Bronch December 2015) - Surgical History Thoracic Surgeries: Patient denies;: Organ Transplant Neurologic Surgeries: Patient denies: Neurologic Surgery HEENT Surgeries: Surgical HX of: Thyroid Surgery (partial thyroidectomy) Patient denies: Tonsilectomy & Adenoidectomy Abdominal Surgeries: Surgical HX of: Abdominal Surgery, Appendectomy, Colonoscopy Reproductive Surgeries: Surgical HX of;: Gynecologic Surgery, Hysterectomy ( TOTAL) Orthopedic Surgeries: Patient denies;: Implanted Devices, Orthopedic Surgery, Spinal Surgery, Total Hip Replacement, Total Knee Replacement - Family History Family History: Reports;: Family Cancer (uncle, brother), Family Diabetes ( multiple), Family Heart Disease (multiple), Family Hypertension (multiple) Denies;: Family Stroke - Social History Smoking Status: Former smoker Frequency of Alcohol Use: None Type of Drug Use: None Results - Labs CBC & BMP: 12/17/16 04:00 12/17/16 04:00 Lab Results: I have reviewed the past 24 hour labs - Diagnostic Findings Procedure: Chest x-ray: image reviewed by me, pending (Yesterday's chest x-ray is clear except for some slight atelectasis in the right upper lobe and some elevation of the right diaphragm.)
[2016-12-17] MEDS ORDERED: HEPARIN LOCK FLUSH 500 UNIT/5 ML SYRINGE IV ONE (09:04)
[2016-12-17] MEDS: ONDANSETRON 4 MG/2 ML VIAL IV PRN (09:08)
[2016-12-17] MEDS: INSULIN REGULAR 100 UNIT/ML SUBCUT SCH ×2 (09:14→18:21)
[2016-12-17] MEDS: POTASSIUM CHLORIDE 8 MEQ CAPSULE PO SCH (10:39)
[2016-12-17] MEDS: PIPERACILLIN/TAZOBACTAM 3,375 MG in SODIUM CHLORIDE 0.9% 100 ML IV SCH ×2 (10:42→19:16)
[2016-12-17] MEDS: SERTRALINE 25 MG TABLET PO SCH (11:05)
[2016-12-17] MEDS ORDERED: methylPREDNISolone SOD SUC INJ 500 MG in SODIUM CHLORIDE 0.9% 100 ML IV ONE (11:49)
[2016-12-17] MEDS: ALBUTEROL/IPRATROPIUM 3 ML NEB RESP TX SCH ×3 (12:14→23:58)
[2016-12-17] MEDS: LOSARTAN 25 MG TABLET PO SCH (12:20)
[2016-12-17] MEDS ORDERED: ALPRAZolam 0.25 MG TABLET PO PRN (13:24)
[2016-12-17] MEDS: MEGESTROL 400 MG/10 ML UDCUP PO SCH ×2 (13:37→21:13)
[2016-12-17] MEDS: ASPIRIN EC 81 MG TABLET PO SCH (13:38)
[2016-12-17] MEDS: LORazepam 2 MG/1 ML VIAL IV PRN (19:49)
[2016-12-18] MEDS: PIPERACILLIN/TAZOBACTAM 3,375 MG in SODIUM CHLORIDE 0.9% 100 ML IV SCH ×3 (02:22→17:00)
[2016-12-18] MEDS: DEXAMETHASONE 4 MG/1 ML VIAL IV SCH (02:22)
[2016-12-18] MEDS: ONDANSETRON 4 MG TABLET PO SCH ×4 (02:24→20:21)
[2016-12-18 05:30] LABS: Basophils # 0.1 10*3/uL (0.0-0.2); Basophils % 0.7 % (0.0-0.8); Hemoglobin 12.1 GM/DL (12.0-16.0); Immature Granulocytes % 2.8 %; Immature Granulocytes Absolute 0.28 #; Lymphocytes % 0.1 % (21.3-54.2); Mean Corpuscular HGB Conc 33.6 GM/DL (32-36); Mean Corpuscular Hemoglobin 31 PG (27-34); Mean Corpuscular Volume 92.1 FL (87-102); Mean Platelet Volume 12.3 FL (9.6-12.0); Monocytes # 0.2 10*3/uL (0.11-0.8); NRBC # 0.59 10*3/uL; Neutrophils # 9.6 10*3/uL (1.4-7.4); Neutrophils % 94.4 % (38.7-73.9); Platelet Count 141 T/CUMM (130-400); Red Blood Count 3.91 MC/CUMM (3.8-5.5); Red Cell Distribution Width 17.2 % (9.3-17.3); White Blood Count 10.1 T/CUMM (4-12)
[2016-12-18 06:09] LABS: Albumin 2.6 G/DL (3.4-5.0); Bilirubin,Total 1.3 MG/DL (0.2-1.0); Calcium 9.1 MG/DL (8.5-10.1); Osmolality,Calculated 313.7 MOS/KG (273-304); Potassium 5.9 MMOL/L (3.5-5.1); Total Protein 5.7 G/DL (6.4-8.3)
[2016-12-18 06:38] LABS: Band Neutrophils 8 % (0-10); Hypochromasia 1+; Lymphocytes 3 % (20-55); Microcytosis 1+; Nucleated Red Blood Cells 7 (0-5); Ovalocytes Few; Platelet Estimate Adequate; Segmented Neutrophils 84 % (50-85); Total Cells Counted 100
[2016-12-18] MEDS: ALBUTEROL/IPRATROPIUM 3 ML NEB RESP TX SCH ×3 (07:20→20:23)
--- NOTE | 2016-12-18 07:49 | Oncology Progress Note ---
Oncology Subjective PN Interval history: Ms. Pearson began deteriorating yesterday. This is in spite of the fact that her chest x-ray is clear and her lungs are clear. I reviewed Dr. Martinez' note. I agree that she may be aspirating. I am going up on her dexamethasone dose to 20 mg IV every 12 hours beginning today. Lab work today includes a hemoglobin of 12.1 with a platelet count of 141,000 and a white cell count of 10,100 with an absolute neutrophil count of 9600. Her comprehensive metabolic profile includes a potassium of 5.9. Her serum creatinine is up to 2.4. This is probably dehydration. However, her transaminases have increased markedly with an AST of 1246 and an ALT of 1679. Her total bilirubin is slightly high at 1.3 today. CMV titers are pending. She tests negative for hepatitis A, B or C. She is not very responsive this morning but she has been sedated. She is extremely frail, emaciated and cachectic. Her lungs remain relatively clear with coarse breath sounds. Her heart rhythm is regular without murmur, gallop or rub. She has been changed to a DNR in case this condition continues to deteriorate. Regardless of whether or not her condition improves at this point, she has small cell carcinoma of the lung that has progressed on 3 different combinations of chemotherapy and she now has brain metastases. Therefore under any circumstances, her prognosis is extremely poor. Exam - Constitutional Vitals: Period Temp Pulse Resp BP Sys/Carvajal Pulse Ox Last 24 Hr 96.3 F-99.5 F 78-134 16-45 89-142/43-65 85-100 Results - Labs CBC & BMP: 12/18/16 05:00 12/18/16 05:00
--- NOTE | 2016-12-18 08:29 | Physician Query Form ---
CLICK EDIT DOCUMENT TO SELECT QUERY ANSWER --> OK --> SIGN Tiera Horner RN, CCDS Certified Clinical String Cutter W) [phone] (f) [phone] [email or web address] PROVIDERS: Make your selection(s) from the choices in EACH section by typing an "x" and enter comments in the comment section. Please use your independent medical judgment in providing your response. This request does not imply that any particular answer is desired or expected. CLINICAL INDICATORS: (Providers should not edit this section) The medical record indicates that the patient has lung cancer, on the : "oxygen saturation had dropped to 85% on 2 L", then later ^ "O2 sat 93% on 4 L nasal byproducts", On the "she may be aspirating" and she is now on Venturi Mask at @ 6 Liters. If possible, please further clarify the type and acuity of respiratory diagnosis : ACUITY: ( ) Acute ( ) Chronic (x) Acute on Chronic TYPE: (x ) Respiratory failure with hypoxia ( ) Respiratory failure with hypercapnia ( ) Respiratory Arrest ( ) Postprocedural/postoperative respiratory failure ( ) Respiratory Insufficiency ( ) ARDS (Adult/Acute Respiratory Distress Syndrome) ( ) Other, please specify: ( ) Clinically unable to determine Recognized criteria for respiratory failure PH <7.35 or >7.45 PO2 <60 PCO2 >50 RR >24 O2 Sat <90% on RA or <95% on O2 Use of accessory muscles Unable to speak in full sentences Intubation is not required COMMENTS: PLEASE ALSO DOCUMENT RESPONSE IN PROGRESS NOTES AND/OR DISCHARGE SUMMARY Use of terms such as suspected, likely, or probable (associated with a specific diagnosis that is being evaluated, monitored, or treated as if it exists) are acceptable and can be restated in the discharge summary if not ruled out. MTDD
--- NOTE | 2016-12-18 08:33 | Physician Query Form ---
CLICK EDIT DOCUMENT TO SELECT QUERY ANSWER --> OK --> SIGN Tiera Horner RN, CCDS Certified Clinical Graphic Editor W) [phone] (f) [phone] [email or web address]: Make your selection(s) from the choices in EACH section by typing an "x" and enter comments in the comment section. Please use your independent medical judgment in providing your response. This request does not imply that any particular answer is desired or expected. CLINICAL INDICATORS: (Providers should not edit this section) The medical record indicates that the patient was admitted with lung cancer, Creatinine increased to 2.40 on the , "is probably dehydration" and the patient is on IVF's. Clarify which of the following most accurately represents the patient's renal status: ( ) Acute kidney injury (non-traumatic) ( ) Acute renal failure ( ) Acute renal failure with underlying Chronic Kidney Disease (CKD) - please provide stage below ( ) Acute renal failure with pathological renal lesion ( ) Acute renal failure with necrosis ( ) tubular ( ) medullary ( ) cortical ( ) CKD - please provide stage below ( ) End Stage Renal Disease ( ) Acute interstitial nephritis ( ) Hepatorenal syndrome ( ) Other, please specify: (x ) Clinically unable to determine Chronic Kidney Disease Stages Source: National Kid[employer] Foundation ( ) Stage I (eGFR > or = 90) ( ) Stage II (eGFR 60 - 89) ( ) Stage III (eGFR 30 - 59) ( ) Stage IV (eGFR 15 - 29) ( ) Stage V (eGFR < 15 or dialysis) COMMENTS: PLEASE ALSO DOCUMENT RESPONSE IN PROGRESS NOTES AND/OR DISCHARGE SUMMARY Use of terms such as suspected, likely, or probable (associated with a specific diagnosis that is being evaluated, monitored, or treated as if it exists) are acceptable and can be restated in the discharge summary if not ruled out. MTDD
[2016-12-18] MEDS: INSULIN REGULAR 100 UNIT/ML SUBCUT SCH ×2 (09:11→16:15)
[2016-12-18] MEDS: LOSARTAN 25 MG TABLET PO SCH (09:12)
[2016-12-18] MEDS: ASPIRIN EC 81 MG TABLET PO SCH (09:12)
[2016-12-18] MEDS: MEGESTROL 400 MG/10 ML UDCUP PO SCH ×2 (09:12→20:21)
[2016-12-18] MEDS: SERTRALINE 25 MG TABLET PO SCH (09:12)
[2016-12-18] MEDS: POTASSIUM CHLORIDE 8 MEQ CAPSULE PO SCH (09:12)
--- NOTE | 2016-12-18 09:17 | Pulmonology Progress Note ---
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 She has decreased level of consciousness. Worsening renal function. Seems more short of breath. She has been made a DO NOT RESUSCITATE. I certainly agree with that. Her prognosis is poor. Exam (Progress Note) - Constitutional Vitals: Period Temp Pulse Resp BP Sys/Carvajal Pulse Ox Last 24 Hr 96.3 F-99.5 F 78-134 16-45 89-174/43-82 86-100 Exam: Patient is obtunded on facemask oxygen. Respiratory rate in the mid 20s. O2 sat 90% on about 40% Ventimask. Pupils are reactive. Neck supple. Chest reveals some rhonchi on the bases equal breath sounds. Heart normal rate rhythm no murmurs. Abdomen soft no masses. Extremities no clubbing cyanosis or edema. Calves nontender. Results - Labs CBC & BMP: 12/18/16 05:00 12/18/16 05:00 Lab Results: I have reviewed the past 24 hour labs Assessment and Plan (1) Dysphagia Status: Acute Assessment and plan: She may be aspirating after observation of her in the room. Await CT of chest and abdomen. May want to have speech therapy evaluation before feeding by mouth further. Current Visit: Yes (2) metastatic small cell lung cancer Status: Acute Assessment and plan: Lung cancer with brain metastasis. Has elevated liver tests and may have metastases there as well but not proven. Her prognosis is grave. 12/18/2016 small cell lung cancer with brain metastasis. Elevated liver to suggest liver metastases but she was not able to have abdominal CT done. Primarily doing comfort measures. Current Visit: No (3) COPD (chronic obstructive pulmonary disease) Status: Chronic Assessment and plan: She has some mild wheezing. Treat with bronchodilators and steroids. 12/18/2016 continuing bronchodilators and steroids. Current Visit: No (4) Atrial fibrillation with RVR Status: Acute Assessment and plan: Heart rate is around 110. Current Visit: No
[2016-12-18] MEDS: DEXAMETHASONE INJ 20 MG in SODIUM CHLORIDE 0.9% 50 ML IV SCH ×2 (09:38→21:52)
[2016-12-18] MEDS: MORPHINE 2 MG/1 ML SYRINGE IV PRN ×3 (17:31→23:58)
[2016-12-19] MEDS: ALBUTEROL/IPRATROPIUM 3 ML NEB RESP TX SCH ×4 (00:54→19:51)
[2016-12-19] MEDS ORDERED: ACETAMINOPHEN 650 MG SUPP RECTAL PRN (01:07)
[2016-12-19] MEDS: ONDANSETRON 4 MG TABLET PO SCH ×4 (01:46→21:09)
[2016-12-19 02:14] LABS: Apearance,Urine CLOUDY (Clear); Bilirubin,Urine Negative (Negative); Blood, Urine Moderate mg/dL (Negative); Glucose,Urine (UA) 50 mg/dL (Negative); Ketones,Urine 5 mg/dL (Negative); Mucus,Urine Occasional /LPF (Occasional); Nitrite,Urine Negative (Negative); Protein,Urine 100 MG/DL; Squamous Epithelial Cell,Urine Occasional /HPF (0-10); Urine Color Amber (Yellow); Urine Specific Gravity 1.028 (1.001-1.035); Urine Urobilinogen < 2.0 EU/DL (0.2-1.0)
[2016-12-19] MEDS: PIPERACILLIN/TAZOBACTAM 3,375 MG in SODIUM CHLORIDE 0.9% 100 ML IV SCH ×3 (02:26→17:07)
[2016-12-19] MEDS: MORPHINE 2 MG/1 ML SYRINGE IV PRN ×3 (02:30→17:08)
[2016-12-19] MEDS: INSULIN REGULAR 100 UNIT/ML SUBCUT SCH ×2 (07:48→15:36)
[2016-12-19] MEDS: DEXAMETHASONE INJ 20 MG in SODIUM CHLORIDE 0.9% 50 ML IV SCH ×2 (08:28→21:12)
[2016-12-19] MEDS: MEGESTROL 400 MG/10 ML UDCUP PO SCH ×2 (08:41→21:09)
[2016-12-19] MEDS: LOSARTAN 25 MG TABLET PO SCH (08:41)
[2016-12-19] MEDS: ASPIRIN EC 81 MG TABLET PO SCH (08:41)
[2016-12-19] MEDS: POTASSIUM CHLORIDE 8 MEQ CAPSULE PO SCH (08:41)
[2016-12-19] MEDS: SERTRALINE 25 MG TABLET PO SCH (08:42)
--- NOTE | 2016-12-19 08:51 | Pulmonology Progress Note ---
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 She has decreased level of consciousness. Worsening renal function. Seems more short of breath. She has been made a DO NOT RESUSCITATE. I certainly agree with that. Her prognosis is poor. 12/19/2016 is hypotensive and poorly responsive. Comfort measures only now. I will sign off. Please call if needed further. Exam (Progress Note) - Constitutional Vitals: Period Temp Pulse Resp BP Sys/Carvajal Pulse Ox Last 24 Hr 97.1 F-102.8 F 101-138 16-48 65-82/44-52 90-99 Exam: Patient is obtunded on facemask oxygen. Respiratory rate in the mid 20s. O2 sat 90% on about 40% Ventimask. Pupils are reactive. Neck supple. Chest reveals some rhonchi on the bases equal breath sounds. Heart normal rate rhythm no murmurs. Abdomen soft no masses. Extremities no clubbing cyanosis or edema. Calves nontender. Results - Labs CBC & BMP: 12/18/16 05:00 12/18/16 05:00 Lab Results: I have reviewed the past 24 hour labs Assessment and Plan (1) Dysphagia Status: Acute Assessment and plan: She may be aspirating after observation of her in the room. Await CT of chest and abdomen. May want to have speech therapy evaluation before feeding by mouth further. Current Visit: Yes (2) metastatic small cell lung cancer Status: Acute Assessment and plan: Lung cancer with brain metastasis. Has elevated liver tests and may have metastases there as well but not proven. Her prognosis is grave. 12/18/2016 small cell lung cancer with brain metastasis. Elevated liver to suggest liver metastases but she was not able to have abdominal CT done. Primarily doing comfort measures. 12/19/2016 small cell lung cancer with metastasis to the brain. Patient not doing well despite having had good responses to chemotherapy in the past. Agree with comfort measures. I will sign off. Please call if needed further. Current Visit: No (3) COPD (chronic obstructive pulmonary disease) Status: Chronic Assessment and plan: She has some mild wheezing. Treat with bronchodilators and steroids. 12/18/2016 continuing bronchodilators and steroids. Current Visit: No (4) Atrial fibrillation with RVR Status: Acute Assessment and plan: Heart rate is around 110. Current Visit: No
--- NOTE | 2016-12-19 08:55 | Oncology Progress Note ---
Oncology Subjective PN Interval history: Abrupt change in neurologic status due to brain metastases from small cell lung cancer: Radiation therapy has been discontinued due to her progressive neurologic deterioration. She has no worsening of her neurologic status. She is unresponsive. She has no headache, blurred vision or double vision. Discontinuing radiation therapy. Elevated transaminases: Her transaminases have continued to rise progressively and I attempted to obtain a CT of her abdomen and pelvis but her condition got worse so fast that we did not do the CT scan. At this point I doubt that her condition will reverse enough to assess this but I suspect that she has progression of her small cell cancer again and that this is a manifestation of it. The bothersome thing is that the alkaline phosphatase is not as elevated as the transaminases. Small cell lung cancer with obstructive pneumonia: She has been treated previously with 3 separate combinations of chemotherapy. There is very little chance that she will receive any additional chemotherapy. Leukopenia: White cell count 10,100 today. Continue to monitor. Diabetes Mellitus: Random glucose 210. Starting sliding scale insulin Anemia: Hemoglobin 12.1. Continue to monitor. Platelet count 141,000. COPD: She has some very faint wheezing in the right lung. I am going to check a chest x-ray today. Hypokalemia: Serum potassium 5.3 Exam - Constitutional Vitals: Period Temp Pulse Resp BP Sys/Carvajal Pulse Ox Last 24 Hr 97.1 F-102.8 F 101-138 16-48 65-82/44-52 90-99 Results - Labs CBC & BMP: 12/20/16 05:50 12/20/16 04:15
[2016-12-19 09:42] LABS: Albumin 2.1 G/DL (3.4-5.0); Bilirubin,Total 1.4 MG/DL (0.2-1.0); Calcium 8.1 MG/DL (8.5-10.1); Osmolality,Calculated 329.3 MOS/KG (273-304); Total Protein 5.3 G/DL (6.4-8.3)
[2016-12-19 09:52] LABS: Potassium 6.8 MMOL/L (3.5-5.1)
[2016-12-19] MEDS: DEXTROSE 5% NACL 0.45% 1,000 ML IV SCH (13:08)
[2016-12-20] MEDS: ALBUTEROL/IPRATROPIUM 3 ML NEB RESP TX SCH ×4 (00:34→21:33)
[2016-12-20] MEDS: ONDANSETRON 4 MG TABLET PO SCH ×4 (01:18→21:19)
[2016-12-20] MEDS: DEXTROSE 5% NACL 0.45% 1,000 ML IV SCH ×5 (01:40→21:05)
[2016-12-20] MEDS: PIPERACILLIN/TAZOBACTAM 3,375 MG in SODIUM CHLORIDE 0.9% 100 ML IV SCH ×3 (01:40→22:03)
[2016-12-20 06:18] LABS: Basophils % 0.3 % (0.0-0.8); Hematocrit 30.2 VOL% (35.7-47.0); Hemoglobin 9.8 GM/DL (12.0-16.0); Immature Granulocytes % 2.4 %; Immature Granulocytes Absolute 0.23 #; Mean Corpuscular HGB Conc 32.5 GM/DL (32-36); Mean Corpuscular Hemoglobin 31 PG (27-34); Mean Corpuscular Volume 95.9 FL (87-102); Mean Platelet Volume 12.4 FL (9.6-12.0); Monocytes # 0.3 10*3/uL (0.11-0.8); Monocytes % 2.9 % (1.7-12.7); NRBC # 1.04 10*3/uL; Neutrophils % 94.4 % (38.7-73.9); Red Blood Count 3.15 MC/CUMM (3.8-5.5); Red Cell Distribution Width 18.6 % (9.3-17.3); White Blood Count 9.5 T/CUMM (4-12)
[2016-12-20 06:44] LABS: Albumin 1.9 G/DL (3.4-5.0); Calcium 7.5 MG/DL (8.5-10.1); Osmolality,Calculated 345.4 MOS/KG (273-304); Total Protein 5.1 G/DL (6.4-8.3)
[2016-12-20 06:51] LABS: Potassium 6.9 MMOL/L (3.5-5.1)
[2016-12-20 08:02] LABS: Platelet Count 86 T/CUMM (130-400)
--- NOTE | 2016-12-20 08:11 | Oncology Progress Note ---
Oncology Subjective PN Interval history: Ms. Pearson has small cell carcinoma of the lung with brain metastases. She was receiving brain radiation but her condition suddenly worsened and she developed renal failure that actually began December 18. Her oral intake became poor. She had been having a steady rise in her transaminases. I had initially attempted to reassess her with a CT of her abdomen and pelvis but unfortunately she deteriorated to rapidly to accomplish this. She is now no code and we are keeping her comfortable. Yesterday she was unresponsive. Today she responds appropriately to my questions and she awakened as I approached her bed but had not even touch her. I am continuing hydration and support but I am not optimistic that her condition is going to turn around significantly. Her family realizes that she is a DNR. On questioning her, she is not having any significant pain or discomfort and that is the main goal of management of her case at this point. Her creatinine is now up to 6.2 and there is little likelihood that she will recover. She also has significant hyperkalemia. The point now is to keep her as comfortable as possible. She is developing multiorgan failure. Her family has agreed that she should not be resuscitated. Exam - Constitutional Vitals: Period Temp Pulse Resp BP Sys/Carvajal Pulse Ox Last 24 Hr 96.1 F-100.6 F 87-112 12-28 64-99/35-58 87-100 Results - Labs CBC & BMP: 12/20/16 05:50 12/20/16 04:15
--- NOTE | 2016-12-20 08:56 | Oncology Progress Note ---
Oncology Subjective PN Interval history: Dr. Reddy's patient list for the weekend All at [facility] 420: Arin Carroll: Patient with newly found rectal mass. She is undergoing endoscopy today. She is on the hospitalist service. You do not necessarily need to see her unless they ask. 424: Kwan Pearson: Small cell lung cancer with brain metastases. Deteriorating. Earlier this week her transaminases began to rise and I evaluated her for possible causes but I did not get a CT of her abdomen and pelvis because she became too ill to get one. I attempted. Now she is in renal failure as well as apparent liver failure. I am hydrating her to try to reverse the renal failure and to try to get her serum potassium down. She was unresponsive yesterday but verbally responded today. The main goal is to keep her comfortable. 425: Dianna Cook: Newly diagnosed ovarian cancer. She received Taxol and carboplatin yesterday and will probably be discharged today. I have already given her discharge instructions and I am setting her up for follow-up at the office. 329: Livier Harrison: Patient with Waldenstrm's macroglobulinemia. Admitted with cellulitis of the left leg. There is no real reason to see her unless they contact you. She may even be going back to her assisted today or this weekend. Exam - Constitutional Vitals: Period Temp Pulse Resp BP Sys/Carvajal Pulse Ox Last 24 Hr 96.1 F-100.6 F 87-112 12-28 64-99/35-58 87-100 Results - Labs CBC & BMP: 12/20/16 05:50 12/20/16 04:15
[2016-12-20] MEDS: LOSARTAN 25 MG TABLET PO SCH (09:01)
[2016-12-20] MEDS: POTASSIUM CHLORIDE 8 MEQ CAPSULE PO SCH (09:01)
[2016-12-20] MEDS: MEGESTROL 400 MG/10 ML UDCUP PO SCH ×2 (09:01→21:19)
[2016-12-20] MEDS: ASPIRIN EC 81 MG TABLET PO SCH (09:01)
[2016-12-20] MEDS: SERTRALINE 25 MG TABLET PO SCH (09:01)
[2016-12-20] MEDS: DEXAMETHASONE INJ 20 MG in SODIUM CHLORIDE 0.9% 50 ML IV SCH ×2 (09:03→21:05)
[2016-12-20] MEDS: INSULIN REGULAR 100 UNIT/ML SUBCUT SCH ×3 (09:03→16:47)
--- NOTE | 2016-12-20 09:25 | Oncology Progress Note ---
Exam - Constitutional Vitals: Period Temp Pulse Resp BP Sys/Carvajal Pulse Ox Last 24 Hr 96.1 F-100.6 F 87-112 12-28 64-99/35-58 87-100 Results - Labs CBC & BMP: 12/20/16 05:50 12/20/16 04:15
[2016-12-20] MEDS: LORazepam 2 MG/1 ML VIAL IV PRN (13:40)
[2016-12-21] MEDS: ALBUTEROL/IPRATROPIUM 3 ML NEB RESP TX SCH ×4 (01:19→20:20)
[2016-12-21] MEDS: ONDANSETRON 4 MG TABLET PO SCH ×2 (02:26→08:22)
[2016-12-21 04:16] LABS: Basophils % 0.4 % (0.0-0.8); Hematocrit 27.5 VOL% (35.7-47.0); Immature Granulocytes % 1.3 %; Immature Granulocytes Absolute 0.09 #; Mean Corpuscular HGB Conc 32.7 GM/DL (32-36); Mean Corpuscular Hemoglobin 31 PG (27-34); Mean Corpuscular Volume 94.2 FL (87-102); Mean Platelet Volume 11.9 FL (9.6-12.0); Monocytes # 0.2 10*3/uL (0.11-0.8); Monocytes % 3.4 % (1.7-12.7); NRBC # 0.75 10*3/uL; Neutrophils # 6.5 10*3/uL (1.4-7.4); Neutrophils % 94.9 % (38.7-73.9); Platelet Count 67 T/CUMM (130-400); Red Blood Count 2.92 MC/CUMM (3.8-5.5); Red Cell Distribution Width 18.5 % (9.3-17.3); White Blood Count 6.8 T/CUMM (4-12)
[2016-12-21 05:46] LABS: Band Neutrophils 5 % (0-10); Burr Cells Slight; Giant Platelets Few; Hypochromasia Slight; Microcytosis Slight; Nucleated Red Blood Cells 10 (0-5); Ovalocytes Slight; Platelet Estimate Decreased; Segmented Neutrophils 92 % (50-85); Total Cells Counted 100
[2016-12-21 07:15] LABS: Albumin 1.7 G/DL (3.4-5.0); Bilirubin,Total 2.8 MG/DL (0.2-1.0); Calcium 7.2 MG/DL (8.5-10.1); Osmolality,Calculated 340.6 MOS/KG (273-304); Total Protein 4.5 G/DL (6.4-8.3)
[2016-12-21 07:29] LABS: Potassium 7.3 MMOL/L (3.5-5.1)
[2016-12-21] MEDS: DEXTROSE 5% NACL 0.45% 1,000 ML IV SCH (08:22)
[2016-12-21] MEDS: SERTRALINE 25 MG TABLET PO SCH (08:23)
[2016-12-21] MEDS: POTASSIUM CHLORIDE 8 MEQ CAPSULE PO SCH (08:23)
[2016-12-21] MEDS: LOSARTAN 25 MG TABLET PO SCH (08:23)
[2016-12-21] MEDS: MEGESTROL 400 MG/10 ML UDCUP PO SCH (08:23)
[2016-12-21] MEDS: ASPIRIN EC 81 MG TABLET PO SCH (08:23)
[2016-12-21] MEDS: DEXAMETHASONE INJ 20 MG in SODIUM CHLORIDE 0.9% 50 ML IV SCH (08:46)
[2016-12-21] MEDS: INSULIN REGULAR 100 UNIT/ML SUBCUT SCH ×2 (08:46→16:06)
--- NOTE | 2016-12-21 09:02 | Oncology Progress Note ---
Assessment and Plan (1) Cancer of right lung Status: Chronic Assessment and plan: Emphasis today will be for IV steroids and whole brain radiotherapy. The patient will receive DVT prophylaxis with Ativan as needed seizure activity or agitation. Will address CODE STATUS if family members are available in the future Current Visit: No Qualifiers: Lung location: unspecified part of lung Qualified Code(s): C34.91 - Malignant neoplasm of unspecified part of right bronchus or lung Oncology Subjective PN Interval history: Metastatic lung cancer with brain metastasis. Patient with an area. Her sister is at bedside. She tells me that the patient's son is actually inpatient on the fifth floor for an unspecified reason. There appears to be little other family. Ms. Pearson appears to have been declining over several days now. Today's potassium is noted at 7.1. I discussed this with her sister and I do not plan to intervene medically. We will change CODE STATUS to comfort measures only. The patient is on facemask O2 but appears to be resting comfortably. To my knowledge she has not required any pain medication or anxiolytics. Plan is to proceed with comfort care with discontinuation of nonessential medications. Exam - Constitutional Vitals: Period Temp Pulse Resp BP Sys/Carvajal Pulse Ox Last 24 Hr 97.1 F-98.1 F 82-102 12-22 60-93/40-52 92-98 Results - Labs CBC & BMP: 12/21/16 02:17 12/20/16 04:15
[2016-12-21 12:17] VITALS: BP 82/41
[2016-12-21] MEDS: MORPHINE 2 MG/1 ML SYRINGE IV PRN (16:13)
[2016-12-22] MEDS: ALBUTEROL/IPRATROPIUM 3 ML NEB RESP TX SCH (01:10)
[2016-12-22] MEDS: MORPHINE 2 MG/1 ML SYRINGE IV PRN ×2 (01:45→04:52)
--- NOTE | 2016-12-23 07:53 | Discharge Summary ---
Hospital Course - Hospital Course Hospital Course: Diagnoses: Metastatic small cell carcinoma of the lung with brain metastases Severe COPD Hepatitis of indefinite etiology Acute renal failure Hyperkalemia This 66-year-old lady was admitted with worsening confusion and with brain metastases documented in the emergency room. She was started on IV corticosteroids and radiation oncology was consulted. She had been previously documented to have small cell lung cancer but these were newly diagnosed brain metastases. She began radiation but her condition deteriorated. She began having a rise in her transaminases and I ordered a CT of the chest, abdomen and pelvis with contrast. Unfortunately, by the next morning, the patient had renal failure as well and the study could not be done. In addition, her condition had deteriorated over the less than 24 hour period from the time ordered a CT until it was about to be done. She became so sick so rapidly that the study was canceled. Her condition continued to deteriorate and she ultimately as result of her small cell lung cancer and its complications. Discharge Plan - Discharge Data Disposition: - Discharge Medications No Action Aspirin [Ecotrin] 81 mg PO QAM NIFEdipine XL TAB [Procardia Xl] 30 mg PO QAM Acetaminophen Tab [Tylenol Tab] 325 mg PO Q4H PRN #0 tablet PRN Reason: fever, headache/body aches Losartan [Cozaar] 25 mg PO QAM Furosemide Tab [Lasix Tab] 40 mg PO QAM Ondansetron Tab [Zofran Tab] 4 mg PO Q6H Sertraline [Zoloft] 25 mg PO QAM predniSONE TAB [PredniSONE] 10 mg PO QAM Albuterol Neb [Proventil Neb] 2.5 mg RESP TX Q4H PRN PRN Reason: Shortness Of Breath/Wheezing Albuterol Inhaler [Proventil Inhaler] 2 puff INH Q4H PRN PRN Reason: Shortness Of Breath/Wheezing HYDROcodone/ACETAMIN 7.5-325 [[place] 7.5-325] 1 tablet PO Q6H PRN PRN Reason: Pain Megestrol Liquid [Megace Liquid] 400 mg PO BID #30 - Follow Up or Referral - Forms/Instructions Discharge Results Procedures and tests throughout hospitalization: Pending Orders 12/19/16 01:20 Blood Culture Stat Labs on day of discharge: Preliminary micro results at discharge 12/19/16 01:20 Blood Culture - Preliminary Blood No growth at 3 days DS: Provider Date of admission: 12/05/16 14:09 Primary care physician: Sharelne Humphries MD Attending physician on admission: Teodoro Reddy MD Consults: 12/05/16 15:32 Consult to Physician [CONS] Routine Comment: Lung CA with brain mets Consulting Provider: Herb White Consulting Provider Notified: Yes When should Consulting Provider be notified: Now Consult to Specialist Group: Radiation Oncology When should Consulting Provider be notified: Now Person Notified: FREDRICK Date Notified: 12/05/16 Time Notified: 15:50 12/05/16 15:53 Consult to Dietitian [CONS] Routine Reason for Dietitian: Diet Instruction 12/09/16 08:00 Consult to Physical Therapy [CONS] Routine Reason for Physical Therapy: Evaluate and Treat 12/17/16 08:23 Consult to Physician [CONS] Routine Comment: pt known to you, sob, decreased sats Consulting Provider: Russel Martinez Consulting Provider Notified: Yes When should Consulting Provider be notified: Now Consult to Specialist Group: Pulmonology When should Consulting Provider be notified: Now Person Notified: LINDSEY Date Notified: 12/17/16 Time Notified: 08:33 Discharging clinician: Teodoro Reddy MD
== END 2016-12-22 06:23 | disposition expired | DRG 54 ==
LOC: N.ED 11:49 → N.EDINP 13:44 → N.4E 13:52
PROVIDERS: ADMIT Specialist; ATTEND Specialist